=== PATIENT | female | born 1960 | race Caucasian/White ===

== ENCOUNTER → 2023-04-02 09:24 | Outpatient (BNVA) | payer OTHER, SELFPAY | PROVIDERS: PCP Internal Medicine; Referring Provider Internal Medicine; Visit Provider Physician Assistant ==

== ENCOUNTER 2023-05-06 08:52 | Outpatient (AMB) | payer OTHER, SELFPAY ==
[2023-05-06 08:59] VITALS: BP 165/58; PULSE 68; TEMP 36.2; O2SAT 95; BMI 41.0
--- NOTE | 2023-05-06 08:59 | A.OFFVIS_ITS ---
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 Allergies No Known Allergies Allergy (Verified 04/02/23 09:37) Medication List - Last Reconciled 05/06/23 by MICAELA Leach aspirin (Adult Aspirin Regimen) 81 mg PO DAILY atorvastatin 40 mg PO BEDTIME chlorhexidine gluconate 4% (Hibiclens) 1 appl topical BID cilostazol 100 mg PO BID clopidogrel 75 mg PO DAILY clotrimazole 1% 1 appl topical BID fluticasone propion-salmeterol 250-50 mcg/dose (Advair Diskus) 1 inh inhalation BID HPI HPI Comments History of Present Illness Details Pt is here to start the [facility] Weight Management surgical weight loss program. Her goal is to lose weight and achieve a healthy lifestyle as well as to improve, if not resolve, obesity related medical conditions, including HLD. She reports first being concerned about her weight 15 years ago, highest weight to date was 218. Initial weight on presentation to the clinic on 04/02/23 was 218 poundsCurrent weight is 216.8 with a BMI of 41. She has tried multiple methods of weight loss including fad diets without permanent results. She lives with her and granddaughter. She does not work. Hx of vasculopathy with painful BLE. Underwent angiogram by Dr Prater at [facility] and stents were attempted but unsuccessful. She underwent Aorto-iliac bypass bila terally in 2019. F/U with Dr Polo as Dr Prater left. Had US and stents were again attempted by Dr Polo, unsucessful. Re-imaged months later and found to have neovascularization. She continues to complain of a heaviness of bilateral legs with ambulation of 15-20 minutes. Never had any significant improvement since the surgery. She wakes at:?5 am, and goes to bed at?9 pm. Dinner is at 5 pm. Breakfast: skip AM snack: cookies, apple turnover, watermelon Lunch: skip or sandwich PM snack: skip Dinner: meatballs and pasta, chicken After dinner: klondik bar, ice cream Other snacks: candy Liquids: 32 oz water, no soda, no juice, ice tea sweetened 40 oz Alcohol/marijuana/tobacco intake: no etoh, 1-2 x per week edible cannabis, quit smoking 2018 (prev 2 ppd-40 yrs) Exercise: none, no exercise equp in house and no gym membership GERD score: 0 MOSES score: 0 ESS score: 3 QOL score: 89 PFSH Surgical History History of nrpon-sgeuz-blqxzwr bypass Hx of carpal tunnel repair Hx of colonoscopy Hx of foot surgery Hx of tonsillectomy Family History Mother COPD (chronic obstructive pulmonary disease) Hypertension Father Peripheral arterial disease Brother No problems noted. Brother Heart disease Sister No problems noted. Son No problems noted. Daughter No problems noted. Social History Alcohol intake: never Patient Tobacco Use Status: Former Tobacco user Review of Systems Const All systems reviewed & are unremarkable except as noted in HPI and below Physical Exam Const General: cooperative, healthy appearing and no acute distress Orientation/consciousness: patient oriented x3 HEENT Head: Yes normal to inspection Ears: hearing grossly normal bilaterally General nose exam: Normal external nose present Face and sinus: Yes normal facial exam Eyes General: appearance normal, both eyes and all related structures Resp Effort & Inspection: normal respiratory effort Auscultation: clear to auscultation bilaterally Cardio Rate: regular rate Rhythm: regular rhythm Heart sounds: S1 normal heart sound present and S2 normal heart sound present GI Inspection: Yes normal to inspection, No distended and Yes obesity Palpation (GI): Soft to palpation, nontender and no guarding Auscultation: normal bowel sounds Skin General skin exam: no rashes or lesions noted Neuro General: patient oriented x3 Extrem General: No edema Psych Appearance: grossly normal Mental Status: mental status grossly normal Speech and movement: Normal speech and movement present Affect: normal affect Attitude: cooperative Assessment & Plan Assessment & Plan (1) Morbid obesity: Code(s): E66.01 - Morbid (severe) obesity due to excess calories Plan: This is a?63 yo female who will start our SWL program to prepare for bariatric surgery.? Blood work, h pylori , CXR, ECG, Abd US and UGI have been ordered. She is being scheduled for RD and BH initial consultations. She will start SWL classes and watch the first three videos before her next appointment. ? Adequate sleep of 7-8 hours per night discussed, awakening at 5 am and going to bed at 9 pm ? Purchase body composition analyzer scale (Geremias kovacs or Alejandra recommended) and check weight weekly. The best time to do this is first thing in the morning after going to the bathroom. 1. Nutritional counseling: Be sure to careful read the number of scoops per shake Start with 2 Orgain shakes ([employer], [employer], [employer]), (1 scoop in 8 oz low fat unsweetened almond milk each) First shake at 6am-8am, Second shake at 10am-12pm 1 protein bar (Zone Perfect bars at [employer], [employer], or [employer]) at 2pm-4pm. Dinner at 5pm (8 forks of protein and 8 forks of salad/vegetables). Meal to include lean meat (beef, fish, pork, turkey, chicken), cooked vegetables or a salad with olive oil and/or fruits (berries, pears, apples, kiwi). Avoid salt, breads, potatoes, rice, pasta, desserts. 1 belizean yogurt with 1/2 cup fresh berries (strawberries, blueberries, raspberries, blackberries) at 7pm-8pm. Try to drink 64 oz of water daily and avoid soda and juices. ?2. Each shake would be drunk slowly, like coffee in a period of 2 hours. ?3. Cut each bar in 4 pieces and eat each piece in 30 min ?to make each bar last 2 hours. ?4. I emphasized the importance of measuring accurately the food portion and measure it carefully when serving the food on the plate ?5. The meal portions include 8 full-size forks of meat and 8 full-size forks of salad. You always eat the meat portion but you can replace up to half of the forks of salad/vegetables with rice, potatoes or pasta, or a fruit ?if you like. The less you do it the better weight loss will be. ?6. One full-size fork is what can be scooped on the fork without falling aside and not what can be bit with the fork. Use regular forks like those you find in a typical restaurant. ?7.? Please send me weight measurements as soon as possible and then once a week. Always include your diet and exercise plan. Alternatively come weekly at the office for weight checks and send me the measurements. ?8. Exercise counseling: Begin by watching a stretching for beginners video. Start slowly and begin to stretch your muscles. You should do this before and after each exercise session to prevent injury. Please join [employer] gym near your home. Ask the construction safety manager or one of the trainers how to use the machines if you are unfamiliar with them. Start elliptical with a resistance of 2. Increase resistance by 1 every 3 min to your most comfortable resistance with a max resistance of 6. Reduce the resistance by 1 every 3 minutes back down to 2 and repeat cycles for 300 calories. Alternatively, start treadmill with a speed of 2.6 and incline of 0, increasing incline by 1 every 3 minutes to the highest comfortable level (max 6 for now) then decrease in the same fashion. Ultimate goal is to repeat process to a goal of 300 calories. Goal of 2000 calories burned or more weekly. You will need to try to go for 10-15 minutes, until the discomfort in your legs starts. The next day, try to increase your time by 1 minute and so forth. You may also consider use of the stationary bike. The easiest would be to chose the fat-burn or interval training program on the machine and do this until you reach the 300 calorie goal. Alternatively, you can manually adjust the resistance in a similar fashion as mentioned above, (resistance of 2-8 with a goal speed of 12 mph). Tracking calories is essential. 9. Alternatively start walking outside daily, tracking calories with a goal of 300 calories per day, daily. You can download the sreg [employer] which can track your time, distance and calories while walking outside. You press start in the serg when you start and then stop when you are finished. 10.? It is important to communicate with me by text weekly. 11. Please get labs, EKG and chest X-Ray within 1 week. 12. Discussed and answered all questions regarding?obtained consent to participate in the [facility]?Registry. 13. Please follow the diet plan exactly, without any change. If you do not like something about the plan or you feel hungry, you need to communicate with me so I can help you revise the plan. You should not change the plan yourself. Text me at [phone] 14. Goal is to lose at least 12 pounds in the first month 15. Goal is to lose 10% of your weight before surgery, which is about 21 lbs. Ultimate weight goal: 197 lbs before surgery Patient is morbidly obese and is not considered stable at this time.?I spent a total of 70 minutes reviewing/updating records, examining the patient and counseling the patient on weight management as detailed above. (2) Claudication of both lower extremities: Code(s): I73.9 - Peripheral vascular disease, unspecified Plan: Given options for a second opinion for vascular status Orders: Orders Vitamin B12 and Folate Today E66.01 - Morbid (severe) obesity due to excess sandi ories, E78.00 - Pure hypercholesterolemia, unspecified, I73.9 - Peripheral vascular disease, unspecified Comprehensive Met. Panel Today E66.01 - Morbid (severe) obesity due to excess calories, E78.00 - Pure hypercholesterolemia, unspecified, I73.9 - Peripheral vascular disease, unspecified C Reactive Protein Today E66.01 - Morbid (severe) obesity due to excess calories, E78.00 - Pure hypercholesterolemia, unspecified, I73.9 - Peripheral vascular disease, unspecified Ferritin Today E66.01 - Morbid (severe) obesity due to excess calories, E78.00 - Pure hypercholesterolemia, unspecified, I73.9 - Peripheral vascular disease, unspecified Hemoglobin A1c Today E66.01 - Morbid (severe) obesity due to excess calories, E78.00 - Pure hypercholesterolemia, unspecified, I73.9 - Peripheral vascular disease, unspecified Insulin Today E66.01 - Morbid (severe) obesity due to excess calories, E78.00 - Pure hypercholesterolemia, unspecified, I73.9 - Peripheral vascular disease, unspecified IRON PROFILE Today E66.01 - Morbid (severe) obesity due to excess calories, E78.00 - Pure hypercholesterolemia, unspecified, I73.9 - Peripheral vascular disease, unspecified Lipid Panel Today E66.01 - Morbid (severe) obesity due to excess calories, E78.00 - Pure hypercholesterolemia, unspecified, I73.9 - Peripheral vascular disease, unspecified PTHI Today E66.01 - Morbid (severe) obesity due to excess calories, E78.00 - Pure hypercholesterolemia, unspecified, I73.9 - Peripheral vascular disease, unspecified TSH reflex Free T4 Today E66.01 - Morbid (severe) obesity due to excess calories, E78.00 - Pure hypercholesterolemia, unspecified, I73.9 - Peripheral vascular disease, unspecified Vitamin A Today E66.01 - Morbid (severe) obesity due to excess calories, E78.00 - Pure hypercholesterolemia, unspecified, I73.9 - Peripheral vascular disease, unspecified Vitamin B1 Today E66.01 - Morbid (severe) obesity due to excess calories, E78.00 - Pure hypercholesterolemia, unspecified, I73.9 - Peripheral vascular disease, unspecified Vitamin D 25-OH Total Today E66.01 - Morbid (severe) obesity due to excess calories, E78.00 - Pure hypercholesterolemia, unspecified, I73.9 - Peripheral vascular disease, unspecified Zinc Today E66.01 - Morbid (severe) obesity due to excess calories, E78.00 - Pure hypercholesterolemia, unspecified, I73.9 - Peripheral vascular disease, unspecified ECG 12 lead EKG Today E66.01 - Morbid (severe) obesity due to excess calories, E78.00 - Pure hypercholesterolemia, unspecified, I73.9 - Peripheral vascular disease, unspecified FL upper GI w air Today E66.01 - Morbid (severe) obesity due to excess calories, E78.00 - Pure hypercholesterolemia, unspecified, I73.9 - Peripheral vascular disease, unspecified Complete Blood Count Auto Diff Today E66.01 - Morbid (severe) obesity due to excess calories, E78.00 - Pure hypercholesterolemia, unspecified, I73.9 - Peripheral vascular disease, unspecified H Pylori Breath Test Today E66.01 - Morbid (severe) obesity due to excess calories, E78.00 - Pure hypercholesterolemia, unspecified, I73.9 - Peripheral vascular disease, unspecified US abdomen comp w elastography Today E66.01 - Morbid (severe) obesity due to excess calories, E78.00 - Pure hypercholesterolemia, unspecified, I73.9 - Peripheral vascular disease, unspecified XR chest 2V Today E66.01 - Morbid (severe) obesity due to excess calories, E78.00 - Pure hypercholesterolemia, unspecified, I73.9 - Peripheral vascular disease, unspecified Referrals Behavioral Health Referral E66.01 - Morbid (severe) obesity due to excess calories, E78.00 - Pure hypercholesterolemia, unspecified, I73.9 - Peripheral vascular disease, unspecified Nutrition/Dietitian Referral E66.01 - Morbid (severe) obesity due to excess calories, E78.00 - Pure hypercholesterolemia, unspecified, I73.9 - Peripheral vascular disease, unspecified Coding Level of Care Code New Pt Level 5 (68554) Diagnoses Morbid obesity E66.01 Claudication of both lower extremities I73.9 Time Spent (min) 70
== END 2023-05-06 10:00 | disposition home or self-care (01) ==
PROVIDERS: PCP Internal Medicine; Visit Provider Physician Assistant Surgical
DX: E66.01 Morbid (severe) obesity due to excess calories (principal); Z68.41 Body mass index [BMI] 40.0-44.9, adult; I73.9 Peripheral vascular disease, unspecified
CPT/HCPCS: 99205

== ENCOUNTER 2023-05-06 08:52 | Outpatient (REF) | payer OTHER, SELFPAY ==
--- NOTE | ~2023-05-06 | XR_ITS ---
EXAMINATION: XR CHEST CLINICAL INFORMATION: Morbid obesity due to excess calories. COMPARISON: None available. TECHNIQUE: 2 views of the chest were obtained. FINDINGS: No significant abnormality is noted involving the heart, lungs, mediastinum, bony thorax or soft tissues. XR/XR chest 2V IMPRESSION: Unremarkable examination.
[2023-05-06 10:35] LABS: MANUAL DIFF FLAG NO
--- NOTE | 2023-05-06 10:36 | ECG_ITS ---
Test Reason : morbid obesity Blood Pressure : / mmHG Vent. Rate : 056 BPM Atrial Rate : 056 BPM P-R Int : 144 ms QRS Dur : 088 ms QT Int : 432 ms P-R-T Axes : 067 029 052 degrees QTc Int : 416 ms Sinus bradycardia with Premature supraventricular complexes Otherwise normal ECG No previous ECGs available Referred By: Petr Mera Electronically Signed By:ERNIE SANDHU MD
[2023-05-06 11:42] LABS: Basophils Percent Auto 0.4 % (0-2); Eosinophils Percent Auto 0.5 % (0-4); Hematocrit 41.8 % (37.0-47.0); Hemoglobin 13.7 g/dl (12.0-16.0); Imm Gran Abs Auto 0.03 X10*3/uL (0.00-0.03); Imm Gran Pct Auto 0.4 % (0.0-0.4); Lymphocytes Absolute Auto 2.7 X10*3/uL (1.2-4.9); Lymphocytes Percent Auto 32.8 % (20-40); Mean Corpuscular HGB Conc 32.8 g/dl (31.0-35.0); Mean Corpuscular Hemoglobin 29.6 pg (27.0-33.0); Mean Corpuscular Volume 90.3 fL (80.0-98.0); Mean Platelet Volume 10.2 fL (9.4-12.3); Monocytes Absolute Auto 0.6 X10*3/uL (0.1-1.2); Monocytes Percent Auto 7.9 % (2-11); Neutrophils Absolute Auto 4.7 x10*3/uL (2.0-8.3); Platelet Count 328 X10*3/uL (160-400); Red Blood Count 4.63 X10*6/uL (4.20-5.50); Red Cell Distribution Width 12.9 % (11.0-16.0); White Blood Count 8.1 X10*3/uL (4.8-10.8)
[2023-05-06 11:50] LABS: Estimated Average Glucose 123 mg/dL; Hemoglobin A1c % 5.9 %
[2023-05-06 12:23] LABS: Alanine Aminotransferase 29 U/L (0-31); Albumin Level 4.2 g/dL (3.5-5.0); Alkaline Phosphatase 103 U/L (39-117); Anion Gap 13 (12-20); Aspartate Amino Transferase 22 U/L (5-31); Bilirubin Total 1.3 mg/dL (0.0-1.0); Blood Urea Nitrogen 9 mg/dL (9-16); C Reactive Protein 0.34 mg/dL (< or = 0.50); Calcium 9.7 mg/dL (8.4-10.2); Carbon Dioxide 26 mmol/L (22-29); Chloride 107 mmol/L (96-108); Cholesterol 136 mg/dL; Estimated Glomerular Filt Rate > 60; Glucose Random 83 mg/dL (60-115); HDL Cholesterol 42 mg/dL; Iron 97 mcg/dL (30-160); LDL Cholesterol Calculated 78 mg/dl; Percent Iron Saturation 30 % (15-50); Sodium 142 mmol/L (135-145); Total Iron Binding Capacity 326 mcg/dL (228-428); Total Protein 6.9 g/dL (6.5-8.0); Triglycerides 83 mg/dL; Unsaturated Iron Binding 229 ug/dL
[2023-05-06 12:27] LABS: Ferritin 87 ng/mL (10-250); Insulin 17 uU/mL (2-29); TSH reflex Free T4 2.22 uIU/mL (0.32-4.0); Vitamin D 25-OH Total 13.3 ng/mL (>30)
[2023-05-06 12:43] LABS: Folate 7.3 ng/mL (> or = 4.0); Vitamin B12 307 pg/mL (200-900)
[2023-05-07 17:43] LABS: Calcium (PTHI) 9.4 mg/dL (8.6-10.4); PTHI 183 pg/mL (16-77)
[2023-05-10 14:25] LABS: H Pylori Breath Test Negative (Negative)
[2023-05-11 07:28] LABS: Vitamin B1 9 nmol/L (8-30)
[2023-05-11 16:53] LABS: Zinc 66 mcg/dL (60-130)
[2023-05-13 21:04] LABS: Vitamin A 30 mcg/dL (38-98)
== END 2023-05-06 08:53 | disposition home or self-care (01) ==
LOC: HO.LAB 08:52
PROVIDERS: PCP Internal Medicine; Visit Provider Physician Assistant Surgical
DX: E66.01 Morbid (severe) obesity due to excess calories (principal); I73.9 Peripheral vascular disease, unspecified; E78.00 Pure hypercholesterolemia, unspecified
CPT/HCPCS: 36415; 71046; 80053; 80061; 82306; 82607; 82728; 82746; 83013; 83036; 83525; 83540; 83970; 84425; 84443; 84590; 84630; 85025; 86140; 93005; 99202; 99211

== ENCOUNTER → 2023-05-06 10:36 | Outpatient (BNV) | payer OTHER, SELFPAY | PROVIDERS: PCP Internal Medicine; Visit Provider Internal Medicine Cardiovascular Disease | DX: I47.1 Supraventricular tachycardia (principal) | CPT/HCPCS: 93010 ==

== ENCOUNTER 2023-05-20 12:00 | Outpatient (AMB) | payer OTHER, SELFPAY ==
--- NOTE | 2023-05-20 12:16 | MHC.WMTHER ---
Intake Intake Visit Reasons: VIDEO Intake Allergies No Known Allergies Allergy (Verified 05/06/23 11:25) [facility] Surgical History History of guuyx-rkxhf-vhcnvig bypass Hx of carpal tunnel repair Hx of colonoscopy Hx of foot surgery Hx of tonsillectomy Family History Mother COPD (chronic obstructive pulmonary disease) Hypertension Father Peripheral arterial disease Brother No problems noted. Brother Heart disease Sister No problems noted. Son No problems noted. Daughter No problems noted. Social History Alcohol intake: never Patient Tobacco Use Status: Former Tobacco user Behavioral Health Assessment Weight Management Therapy Therapy Notes Details Pt is looking to have weight loss surgery to help improve her health and quality of life. Pt denied any mental health history or treatment. She has no history of problems with drugs or alcohol. Presenting Concerns Referral Source provider Reason for referral weight loss surgery evaluation Precipitating Event obesity Living Situation Current Living Situation Own At risk of losing current housing? No Satisfied with current living situation? Yes Comments Pt lives with her and granddaughter who is 19. Food/Weight/Diet Expectations of change weight loss and maintenance History/Relationship with food Skipped breakfast, picked at lunch time, made poor food choices, chips at night, she reported that she loves any kind of desserts. Also drinking iced tea daily, soda daily up until one year ago History/Relationship with weight She stated that the last ten years she has struggled with her weight. Prior to that she weighed around 130lbs. History/Relationship with dieting none Binge Eating Do you frequently eat large amounts of food in short periods of time, not feeling physically hungry? No Do you feel out of control when you eat a large amount of food in a short period of time? No Do you eat large amounts of food rapidly and typically alone? Yes Night Eating Do you wake up at least once during the night to eat? No If you wake up in the night, do you find that it is necessary to eat something in order to fall back asleep? No Do you have little or no appetite in the morning and feel very hungry in the evening, often overeating between dinner and when you go to bed? Yes Social History Family history and relationship Pt has been with her for over 30 years and has two adult children and 4 grandchildren, one who she raised. 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 none known Education Preferred learning style Auditory, Verbal, Written, Learn by doing and Visual Currently enrolled in educational program? No Interested in further educational program? No Employment Employment Status Retired Wants help to find employment? No Meaningful activities Patient spent the last 18 years raising her granddaughter. Pt reported that she is limited due to her lack of mobility. Financial Situation Describe current financial situation Occasional struggle Financial assistance? None Service Service? No Mental Health and Addiction Treatment Current/Past substance abuse? No Current/Past addictive behavior concerns? No Pain Screening Current pain? Yes Pain in the last few months? Yes Medications Is the patient compliant with medications? Yes Does the patient have [facility] Guardian in place? Not applicable Does the patient use complimentary health approaches? No Trauma/Abuse History History of trauma? No Questionnaires PHQ-9 Over the last 2 weeks, how often have you been bothered by any of the following problems? 1. Little interest or pleasure in doing things: not at all 2. Feeling down, depressed, or hopeless: not at all 3. Trouble falling or staying asleep, or sleeping too much: not at all 4. Feeling tired or having little energy: several days 5. Poor appetite or overeating: not at all 6. Feeling bad about yourself - or that you are a failure or have let yourself or your family down: several days 7. Trouble concentrating on things, such as reading the newspaper or watching television: not at all 8. Moving or speaking so slowly that other people could have noticed. Or the opposite - being so fidgety or restless that you have been moving around a lot more than usual: not at all 9. Thoughts that you would be better off or of hurting yourself in some way: not at all Total score: 2 Depression Screening Interpretation: Negative Source: Developed by Drs. Nikita Osorio, Shauna Snider, Vinicius Morocho and colleagues, with an educational cuauhtemoc from [employer]. Binge Eating Scale Group 1 A. I don't feel self-conscious about my wt. or body size when I'm with others. B. I feel concerned about how I look to others, but it normally does not make me fell disappointed with myself C. I do get self-conscious about my appearance and wt. which makes me feel disappointed in myself. D. I feel very self-conscious about my wt. and frequently I feel intense shame and disgust for myself. I try to avoid social contacts because of my self-consciousness. Response Group 1: C Group 2 A. I don't have any difficulty eating slowly in the proper manner. B. Although I seem to gobble down foods, I don't end up feeling stuffed because of eating to much. C. At times, I tend to eat quickly and then, I feel uncomfortably full afterwards. D. I have the habit of bolting down my food, without really chewing it. When this happens I usually feel uncomfortably stuffed because I've eaten to much. Response Group 2: A Group 3 A. I feel capable to control my eating urges when I want to. B. I feel like I have failed to control my eating more than the average person. C. I feel utterly helpless when it comes to feeling in control of my eating urges. D. Because I feel so helpless about controlling my eating I have become very desperate about trying to get control. Response Group 3: A Group 4 A. I don't have the habit of eating when I'm bored. B. I sometimes eat when I'm bored, but often I'm able to get busy and get my mind off food. C. I have a regular habit of eating when I'm bored, but occasionally, I can use some other activity to get my mind off eating. D. I have a strong habit of eating when I'm bored. Nothing seems to help me breath the habit. Response Group 4: B Group 5 A. I'm usually physically hungry when I eat something. B. Occasionally, I eat something on impulse even though I really am not hungry. C. I have the regular habit of eating foods, that I might not really enjoy, to satisfy a hungry feeling even though physically, I don't need the food. D. Although I'm not physically hungry, I get a hungry feeling in my mouth that only seems to be satisfied when I eat a food, like sandwich, that fills my mouth. Sometimes, when I eat the food to satisfy my mouth hunger, I then spit the food out so I won't gain weight. Response Group 5: A Group 6 A. I don't feel any guilt or self-hate after I overeat. B. After I overeat, occasionally I feel guilt or self-hate. C. Almost all the time I experience strong guilt or self-hate after I overeat. Response Group 6: B Group 7 A. I don't lose total control of my eating when dieting even after periods when I overeat. B. Sometimes when I eat a forbidden food on a diet, I feel like I blew it and eat even more. C. Frequently, I have the habit of saying to myself, I've blown it now, why not go all the way, when I overeat on a diet. When that happens I eat more. D. I have a regular habit of starting a strict diets for myself but I break the diets by going on an eating binge. My life seems to be either a feast or famine. Response Group 7: A Group 8 A. I rarely eat so much food that I feel uncomfortably stuffed afterwards. B. Usually about once a month, I each such a quantity of food, I end up feeling very stuffed. C. I have regular periods during the month when I eat large amounts of food, either at mealtime or at snacks. D. I eat so much food that I regularly feel quite uncomfortable after eating and sometimes a bit nauseous. Response Group 8: A Group 9 A. My level of calorie intake does not go up very high or go down very low on a regular basis. B. Sometimes after I overeat, I will try to reduce my caloric intake to almost nothing to compensate for the excess calories I've eaten. C. I have a regular habit of overeating during the night. It seems that my routine is not to be hungry in the morning but overeat in the evening. D. In my adult years, I have had week-long periods where I practically starve myself. This follows periods when I overeat. It seems I live a life of either feast or famine. Response Group 9: B Group 10 A. I usually am able to stop eating when I want to. I know when enough is enough. B. Every so often, I experience a compulsion to eat which I can't seem to control. C. Frequently, I experience strong urges to eat which I seem unable to control, but at other times I can control my eating urges. D. I feel incapable of controlling urges to eat. I have a fear of not being able to stop eating voluntarily. Response Group 10: A Group 11 A. I don't have any problem stopping eating when I feel full. B. I usually can stop eating when I feel full but occasionally overeat leaving me feeling uncomfortably stuffed. C. I have a problem stopping eating once I start and usually I feel uncomfortably stuffed after I eat a meal. D. Because I have a problem not being able to stop eating when I want, I sometimes have to induce vomiting to relieve my stuffed feeling. Response Group 11: A Group 12 A. I seem to eat just as much when I'm with others, Family social gatherings as when I'm by myself. B. Sometimes, when I'm with other persons, I don't eat as much as I want to eat because I'm self-conscious about my eating. C. Frequently, I eat only a small amount of food when others are present, because I'm very embarrassed about my eating. D. I feel so ashamed about overeating that I pick times to overeat when I know no one will see me. I feel like a closet eater. Response Group 12: B Group 13 A. I eat three meals a day with only an occasional between meal snack. B. I eat 3 meals a day, but I also normally snack between meals. C. When I am snacking heavily, I get in the habit of skipping regular meals. D. There are regular periods when I seem to be continually eating, with no planned meals. Response Group 13: A Group 14 A. I don't think much about trying to control unwanted eating urges. B. At least some of the time, I feel my thoughts are pre-occupied with trying to control my eating urges. C. I feel that frequently I spend much time thinking about how much I ate or about trying not to eat anymore. D. It seems to me that most of my waking hours are pre-occupied by thoughts about eating or not eating. I feel like I'm constantly struggling not to eat. Response Group 14: A Group 15 A. I don't think about food a great deal. B. I have strong craving for food but they last only for brief periods of time. C. I have days when I can't seem to think about anything else but food. D. Most of my days seem to be pre-occupied with thoughts about food. I feel like I live to eat. Response Group 15: A Group 16 A. I usually know whether or not I'm physically hungry. I take the right portion of food to satisfy me. B. Occasionally, I feel uncertain about knowing whether or not I'm physically hungry. A these times it's hard to know how much food I should take to satisfy me. C. Even though I might know how many calories I should eat, I don't have any idea what is a normal amount of food for me. Response Group 16: A Binge Eating Score: 6 Score less than 17 Minimal Risk Score between 18-26 Moderate Risk Score between 27-46 High Risk Assessment & Plan Assessment & Plan (1) Adjustment disorder, unspecified: Code(s): F43.20 - Adjustment disorder, unspecified (2) Morbid obesity: Code(s): E66.01 - Morbid (severe) obesity due to excess calories Plan Pt is doing well in the program, she is dedicated, and has no mental health barriers. She is cleared for surgery when ready. Telehealth Telehealth Location of provider rendering services: other Location of patient: address on file Patient Identification confirmed using: Name, : Yes Telehealth method: voice only Patient verbally consented to treatment: Yes Patient verbally consented to billing insurance company: Yes Patient informed of any privacy concerns related to visit: Yes Minutes spent on Phone/Video with Pt.: 45 Coding Level of Care Code Tele Psy Diag Eval (44586) Diagnoses Adjustment disorder, unspecified F43.20 Morbid obesity E66.01 Time Spent (min) 45
== END 2023-05-20 13:24 | disposition home or self-care (01) ==
LOC: HO.HBST 12:46
PROVIDERS: PCP Internal Medicine; Visit Provider Counselor Mental Health
DX: F43.20 Adjustment disorder, unspecified (principal); E66.01 Morbid (severe) obesity due to excess calories
CPT/HCPCS: 90791

== ENCOUNTER → 2023-05-20 12:00 | Outpatient (BNVA) | payer OTHER, SELFPAY | PROVIDERS: PCP Internal Medicine; Visit Provider Counselor Mental Health | DX: F43.20 Adjustment disorder, unspecified (principal); E66.01 Morbid (severe) obesity due to excess calories ==

== ENCOUNTER 2023-05-31 08:53 | Outpatient (AMB) | payer OTHER, SELFPAY ==
--- NOTE | 2023-05-31 08:57 | MHC.OFFVISWM ---
Intake VS Expanded 05/31/23 09:02 Height 5 ft 1 in Weight 207 lb BMI 39.1 BP 141/74 H Blood Pressure Location Rt brachial Blood Pressure Position Sitting Pulse 77 Pulse Source Pulse Oximeter Temp 97.2 F Temperature Source Temporal Artery Scan Pulse Oximetry 95 Oxygen Delivery Method Room Air Body Fat 90.6 Body Fat Percentage 43.8 Free Fat Mass 116.2 Muscle Mass 110.2 Visceral Mass 14.0 Water Mass 82.0 BMR 1,611 Intake Visit Reasons: (OV) F/U SWL Display Associate Required: No Allergies No Known Allergies Allergy (Verified 05/31/23 09:05) Medication List - Last Reconciled 05/31/23 by MICAELA Leach aspirin (Adult Aspirin Regimen) 81 mg PO DAILY atorvastatin 40 mg PO BEDTIME chlorhexidine gluconate 4% (Hibiclens) 1 appl topical BID cholecalciferol (vitamin D3) 125 mcg PO DAILY 90 days cilostazol 100 mg PO BID clopidogrel 75 mg PO DAILY clotrimazole 1% 1 appl topical BID cyanocobalamin (vitamin B-12) 500 mcg PO DAILY 90 days fluticasone propion-salmeterol 250-50 mcg/dose (Advair Diskus) 1 inh inhalation BID gabapentin 300 mg PO BEDTIME vitamin A palmitate 3,000 mcg PO DAILY 90 days HPI HPI Comments History of Present Illness Details The patient is a pleasant 63 year old female who returns to the clinic for pre-operative surgical weight loss management. They were last seen in the office on 05/06/23, recorded weight at that time was 216.8 pounds, with a BMI of 41. Today's weight is 207 pounds and BMI is 39.1. There has been a weight loss of 11 pounds since initiating the surgical weight loss program on 04/02/23 with a total body weight loss of 5.04 %. Pre op work up completed as follows: SWL classes:? 01/30 BH appts: cleared 05/20/23 ? ? RD appts: needs f/u Labs: 05/06/23- low A, D, B12:307 H. pylori: 05/06/23-neg CXR: 05/06/23-nad EK05/06/23-sinus yuliya with premature SVC- consult to cards placed 05/31/23 ABD U/S: 07/27/23 UGI: needs appt The patient reports she feels great, She did see Dr Foley for her leg pain and is very happy to follow up in June. She is following her meal plan and no complaints. Current meal plan includes: 2 Or[employer] shakes ([employer], [employer], [employer]), (1 scoop in 8 oz low fat unsweetened almond milk each) First shake at 6am-8am, Second shake at? 10am-12pm 1 protein bar (Zone Perfect bars at [employer], [facility], or [employer]) at 2pm-4pm. Dinner at 5pm (8 forks of protein and 8 forks of salad/vegetables). 1 israeli yogurt with 1/2 cup fresh berries (strawberries, blueberries, raspberries, blackberries) at 7pm-8pm. Drinking 64 oz of water Current exercise plan includes: walking her driveway, improved but limited due to claudication PFSH Surgical History History of mvomd-zggrx-fbhdnay bypass Hx of carpal tunnel repair Hx of colonoscopy Hx of foot surgery Hx of tonsillectomy Family History Mother COPD (chronic obstructive pulmonary disease) Hypertension Father Peripheral arterial disease Brother No problems noted. Brother Heart disease Sister No problems noted. Son No problems noted. Daughter No problems noted. Social History Alcohol intake: never Patient Tobacco Use Status: Former Tobacco user Review of Systems Const All systems reviewed & are unremarkable except as noted in HPI and below Physical Exam Const General: healthy appearing and no acute distress Resp Effort & Inspection: normal respiratory effort Auscultation: clear to auscultation bilaterally Cardio Rate: regular rate Rhythm: regular rhythm GI Auscultation: normal bowel sounds Extrem General: Yes normal to inspection Assessment & Plan Assessment & Plan (1) Obesity (BMI 30-39.9): Code(s): E66.9 - Obesity, unspecified Plan: continue plan encouraged to join [employer] near her home rtc 4 weeks text with weight weekly and if questions (2) Abnormal EKG: Code(s): R94.31 - Abnormal electrocardiogram [ECG] [EKG] Plan: referral to cardiology Will need cardiac risk assessment as well Orders: Referrals Cardiology Referral R94.31 - Abnormal electrocardiogram [ECG] [EKG] Coding Level of Care Code Est Pt Level 4 (38469) Diagnoses Obesity (BMI 30-39.9) E66.9 Abnormal EKG R94.31 Time Spent (min) 40
[2023-05-31 09:02] VITALS: BP 141/74; PULSE 77; TEMP 36.2; O2SAT 95; BMI 39.1
== END 2023-05-31 09:34 | disposition home or self-care (01) ==
PROVIDERS: PCP Internal Medicine; Visit Provider Physician Assistant Surgical
DX: E66.9 Obesity, unspecified (principal); Z68.39 Body mass index [BMI] 39.0-39.9, adult; R94.31 Abnormal electrocardiogram [ECG] [EKG]
CPT/HCPCS: 99214

== ENCOUNTER → 2023-05-31 08:53 | Outpatient (BNVA) | payer OTHER, SELFPAY | PROVIDERS: PCP Internal Medicine; Visit Provider Physician Assistant Surgical | DX: E66.9 Obesity, unspecified (principal); R94.31 Abnormal electrocardiogram [ECG] [EKG]; Z68.39 Body mass index [BMI] 39.0-39.9, adult | CPT/HCPCS: 99212 ==

== ENCOUNTER 2023-06-22 09:20 | Outpatient (AMB) | payer OTHER, SELFPAY ==
--- NOTE | 2023-06-22 09:07 | A.OFFVIS_ITS ---
Intake Intake Visit Reasons: VIDEO Initial Nutrition SWL Allergies No Known Allergies Allergy (Verified 05/31/23 09:05) HPI Nutrition Presentation Reason for consult elevated BMI Diet Assmnt Details Patient shares overall she is doing great. She is very motivated and positive. We had a long discussion about identifying all underlying eating habits/factors that contributed to her obesity. Currently she shares she Is struggling with emotional (reward or comfort). Has had this behavior for most o f her life. Exercise: Minimal, however she reports she is able to walk further distances SWL online classes: 01/30 Dietary counseling reduction Who buys your food self Who prepares/cooks your food self Diagnosis Nutrition problem #1 overweight/obesity As related to (etiology) #1 excess energy intake and physical inactivity As evidenced by (sign/symptom) #1 high BMI Monitoring/Goals Nutrition problem monitoring total energy intake, level of knowledge/skill, total PRO intake, total CHO intake, weight and oral fluids Outcome progress progressing Learning/Education Readiness to learn excellent Stages of change action Educational materials provided Yes Most Recent Diabetes Results: Cholesterol 136 mg/dL 05/06/23 HDL Cholesterol 42 mg/dL 05/06/23 Triglycerides 83 mg/dL 05/06/23 Creatinine 0.75 mg/dL (0.5-1.4) 05/06/23 Blood Urea Nitrogen 9 mg/dL (9-16) 05/06/23 Sodium 142 mmol/L (135-145) 05/06/23 Potassium 4.0 mmol/L (3.3-5.1) 05/06/23 Chloride 107 mmol/L (96-108) 05/06/23 Carbon Dioxide 26 mmol/L (22-29) 05/06/23 Calcium 9.7 mg/dL (8.4-10.2) 05/06/23 AST 22 U/L (5-31) 05/06/23 ALT 29 U/L (0-31) 05/06/23 Total Protein 6.9 g/dL (6.5-8.0) 05/06/23 Albumin 4.2 g/dL (3.5-5.0) 05/06/23 [facility] Surgical History History of ekcqr-pvxfp-xibvzjg bypass Hx of carpal tunnel repair Hx of colonoscopy Hx of foot surgery Hx of tonsillectomy Family History Mother COPD (chronic obstructive pulmonary disease) Hypertension Father Peripheral arterial disease Brother No problems noted. Brother Heart disease Sister No problems noted. Son No problems noted. Daughter No problems noted. Social History Alcohol intake: never Patient Tobacco Use Status: Former Tobacco user Assessment & Plan Assessment & Plan (1) Obesity (BMI 30-39.9): Code(s): E66.9 - Obesity, unspecified Patient Instructions: Provided pt with non-food reward ideas. We also talked about non-scale related victories . F/u in 3-4 weeks and complete online classes beforehand to review Telehealth Telehealth Location of provider rendering services: practice address Location of patient: address on file Patient Identification confirmed using: Name, : Yes Telehealth method: video Patient verbally consented to treatment: Yes Patient verbally consented to billing insurance company: Yes Patient informed of any privacy concerns related to visit: Yes Minutes spent on Phone/Video with Pt.: 40 Coding Level of Care Code Nutr Indiv Intake (32597) Diagnoses Obesity (BMI 30-39.9) E66.9 Time Spent (min) 40
== END 2023-06-22 09:43 | disposition home or self-care (01) ==
LOC: HO.HBS 09:20
PROVIDERS: PCP Internal Medicine; Visit Provider Dietitian, Registered
DX: E66.9 Obesity, unspecified (principal)

== ENCOUNTER → 2023-06-22 09:20 | Outpatient (BNVA) | payer OTHER, SELFPAY | PROVIDERS: PCP Internal Medicine; Visit Provider Dietitian, Registered | DX: E66.9 Obesity, unspecified (principal); Z71.3 Dietary counseling and surveillance | CPT/HCPCS: 97802 ==

== ENCOUNTER 2023-06-30 10:48 | Outpatient (AMB) | payer OTHER, SELFPAY ==
--- NOTE | 2023-06-30 11:00 | MHC.OFFVISWM ---
Intake VS Expanded 06/30/23 11:09 Height 5 ft 1 in Weight 202 lb 6.4 oz BMI 38.2 BP 131/64 Blood Pressure Location Lt brachial Blood Pressure Position Sitting Pulse 67 Pulse Source Pulse Oximeter Temp 97.4 F Temperature Source Temporal Artery Scan Pulse Oximetry 94 Oxygen Delivery Method Room Air Body Fat 86.8 Body Fat Percentage 42.9 Free Fat Mass 115.6 Muscle Mass 109.6 Visceral Mass 14.0 Water Mass 81.6 BMR 1,596 Intake Visit Reasons: (OV) F/U SWL Intake Note: Patient is seen in office for follow up visit, following surgical weight loss. Clinical Staff Educator Required: No Accompanied by: Self / Same As Patient Allergies No Known Allergies Allergy (Verified 06/30/23 11:12) HPI HPI Comments History of Present Illness Details The patient is a pleasant 63 year old female who returns to the clinic for pre-operative surgical weight loss management. They were last seen in the office on 05/31/23, recorded weight at that time was 207 pounds, with a BMI of 39.1. Today's weight is 202.4 pounds and BMI is 38.3. There has been a weight loss of 15.6 pounds since initiating the surgical weight loss program on 04/02/23 with a total body weight loss of 7.1 %. Seen by podiatry and had injections in her feet 2-3 weeks ago with improvement in her foot pain. She has follow up with Dr Foley ([facility]) for claudication. Pre op work up completed as follows: SWL classes:? 01/30 BH appts: cleared 05/20/23 ? ? RD appts: f/u 07/21/23 Labs: 05/06/23- low A, D, B12:307 H. pylori: 05/06/23-neg CXR: 05/06/23-nad EK05/06/23-sinus yuliya with premature SVC- consult to cards placed 05/31/23 ABD U/S: 07/27/23 UGI: needs appt Current meal plan includes: 2 Orgain shakes ([employer], [employer], [employer]), (1 scoop in 8 oz low fat unsweetened almond milk each) First shake at 6am-8am, Second shake at? 10am-12pm 1 protein bar (Zone Perfect bars at [employer], [facility], or [employer]) at 2pm-4pm. Dinner at 5pm (8 forks of protein and 8 forks of salad/vegetables). 1 northern irish yogurt with 1/2 cup fresh berries (strawberries, blueberries, raspberries, blackberries) at 7pm-8pm. Drinking 64? oz of water Current exercise plan includes: walking 3 x per week, considering joining [employer] [facility] Surgical History History of cscrh-bydqw-aiuwzle bypass Hx of carpal tunnel repair Hx of colonoscopy Hx of foot surgery Hx of tonsillectomy Family History Mother COPD (chronic obstructive pulmonary disease) Hypertension Father Peripheral arterial disease Brother No problems noted. Brother Heart disease Sister No problems noted. Son No problems noted. Daughter No problems noted. Social History Alcohol intake: never Patient Tobacco Use Status: Former Tobacco user Review of Systems Const All systems reviewed & are unremarkable except as noted in HPI and below Physical Exam Vital Signs: Last Vital Signs Temp 97.4 F 06/30/23 11:09 Pulse 67 06/30/23 11:09 BP 131/64 06/30/23 11:09 Pulse Ox 94 06/30/23 11:09 Oxygen Delivery Method Room Air 06/30/23 11:09 BMI result Body Mass Index 38.2 Const General: healthy appearing and no acute distress Resp Effort & Inspection: normal respiratory effort Auscultation: clear to auscultation bilaterally Cardio Rate: regular rate Rhythm: regular rhythm GI Auscultation: normal bowel sounds Extrem General: Yes normal to inspection Assessment & Plan Assessment & Plan (1) Obesity (BMI 30-39.9): Code(s): E66.9 - Obesity, unspecified Plan: change meal plan to : 2 [employer] shakes ([employer], [employer], [employer]), (1 scoop in 8 oz low fat unsweetened almond milk each) First shake at 6am-8am, Second shake at? 10am-12pm 1 protein bar ([employer] Perfect bars at [employer], [facility], or [employer]) at 2pm-4pm. Dinner at 5pm (8 forks of protein and 8 forks of salad/vegetables). 1/2 cup fresh berries (strawberries, blueberries, raspberries, blackberries) at 7pm-8pm. Encouraged to join [employer], track calories rtc 1 month reminded of appointments Coding Level of Care Code Est Pt Level 3 (57268) Diagnoses Obesity (BMI 30-39.9) E66.9
[2023-06-30 11:09] VITALS: BP 131/64; PULSE 67; TEMP 36.3; O2SAT 94; BMI 38.2
== END 2023-06-30 11:30 | disposition home or self-care (01) ==
PROVIDERS: PCP Internal Medicine; Visit Provider Physician Assistant Surgical
DX: E66.9 Obesity, unspecified (principal); Z68.38 Body mass index [BMI] 38.0-38.9, adult
CPT/HCPCS: 99213

== ENCOUNTER → 2023-06-30 10:48 | Outpatient (BNVA) | payer OTHER, SELFPAY | PROVIDERS: PCP Internal Medicine; Visit Provider Physician Assistant Surgical | DX: E66.9 Obesity, unspecified (principal); Z68.38 Body mass index [BMI] 38.0-38.9, adult | CPT/HCPCS: 99212 ==

== ENCOUNTER 2023-07-13 13:44 | Outpatient (AMB) | payer OTHER, SELFPAY ==
--- NOTE | 2023-07-13 13:50 | MHC.OFFVIS ---
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 Intake Note: NPV Talent Development Manager Required: No Accompanied by: Self / Same As Patient Allergies No Known Allergies Allergy (Verified 07/13/23 13:58) Medication List - Last Reconciled 07/13/23 by Dimas Jeffries MD aspirin (Adult Aspirin Regimen) 81 mg PO DAILY atorvastatin 40 mg PO BEDTIME chlorhexidine gluconate 4% (Hibiclens) 1 appl topical BID cholecalciferol (vitamin D3) 125 mcg PO DAILY 90 days cilostazol 100 mg PO BID clopidogrel 75 mg PO DAILY clotrimazole 1% 1 appl topical BID cyanocobalamin (vitamin B-12) 500 mcg PO DAILY 90 days fluticasone propion-salmeterol 250-50 mcg/dose (Advair Diskus) 1 inh inhalation BID gabapentin 300 mg PO BEDTIME vitamin A palmitate 3,000 mcg PO DAILY 90 days HPI HPI Comments History of Present Illness Details Mary has been referred for evaluation for abnormal EKG. Thought to have PACs. Patient does not have any symptoms from this. Seems to have a strong vascular history. Prior smoker. It seems that she underwent cardiac catheterization 2018 for chest pains. That showed nonobstructive disease only. From vascular standpoint, she also has a history of vascular bypass-per documentation, aorta-iliac/femoral bypass. Overall, she does not have any clear cardiac symptoms. No angina or shortness of breath or in fact anything cardiac stenting. She states she can do several miles on the indoor bike with no issues. She can also go up and down stairs without any chest pains or other cardiac symptoms. [facility] Medical History (Updated 07/13/23 @ 14:14 by Dimas Jeffries MD) Atherosclerotic cardiovascular disease Surgical History Hx of colonoscopy Hx of tonsillectomy Hx of foot surgery Hx of carpal tunnel repair History of mmbvy-zmggk-jlowzoz bypass Family History Mother COPD (chronic obstructive pulmonary disease) Hypertension Father Peripheral arterial disease Brother No problems noted. Brother Heart disease Sister No problems noted. Son No problems noted. Daughter No problems noted. Social History Alcohol intake: never Patient Tobacco Use Status: Former Tobacco user Review of Systems Const Denies weakness Eyes Denies loss of vision ENT Denies dizziness Card Denies chest pain, Denies chest pain with activity, Denies syncope, Denies rapid heart rate, Denies pedal edema, Denies edema, Denies leg edema, Denies lightheadedness, Denies palpitations, Denies dyspnea, Denies dyspnea on exertion and Denies orthopnea Resp Denies cough, Denies dyspnea, Denies dyspnea on exertion and Denies wheezing GI Denies hematochezia and Denies change in stool character Denies hematuria, Denies urinary frequency and Denies dysuria Musc Denies abnormal gait, Denies muscle cramps, Denies muscle weakness, Denies numbness, Denies radiating pain into limb and Denies tingling Skin/Breast Denies nail changes and Denies rash Neuro Denies Abnormal speech present, Denies abnormal gait, Denies dizziness, Denies syncope, Denies loss of vision, Denies memory loss, Denies numbness, Denies tingling and Denies weakness Psych Denies depression and Denies memory loss Endo Denies palpitations Aller/Immun Denies wheezing Physical Exam Vital Signs: Last Vital Signs Pulse 95 07/13/23 13:52 BP 132/62 07/13/23 13:52 BMI result Body Mass Index 38.8 Const General: comfortable and no acute distress Orientation/consciousness: patient oriented x3 HEENT Other: Unremarkable Head: Yes normal to inspection Neck Neck: Yes normal visual inspection Chest Chest palpation & inspection: normal inspection of the chest Resp Auscultation: clear to auscultation bilaterally Cardio Palpation: normal PMI Heart sounds: S1 normal heart sound present, S2 normal heart sound present, no gallops, no murmurs and no rubs GI Palpation (GI): Soft to palpation Back/Spine/Pelvis Other: unremarkable Skin General skin exam: no rashes or lesions noted Neuro General: patient oriented x3 Speech: No Abnormal speech present Extrem General: Yes normal to inspection Psych Mental Status: mental status grossly normal Assessment & Plan Assessment & Plan (1) Preoperative cardiovascular examination: Code(s): Z01.810 - Encounter for preprocedural cardiovascular examination (2) Atherosclerotic cardiovascular disease: Code(s): I25.10 - Atherosclerotic heart disease of [place] coronary artery without angina pectoris (3) PAC (premature atrial contraction): Code(s): I49.1 - Atrial premature depolarization Plan In the recent EKG, underlying rhythm is sinus bradycardia at 56/Min; premature atrial contraction but otherwise unremarkable. Normal [place] and corrected QT. Cardiac catheterization 2019-nonobstructive disease only. Nothing hemodynamically significant. Overall, asymptomatic PACs and established vascular disease but no clinical symptoms from either. We will get an echocardiogram for cardiac function assessment. Holter monitor also to be completed. Once these are reviewed, we can plan further. Orders: Orders CA echo transthoracic complete Today I25.10 - Atherosclerotic heart disease of [place] coronary artery without angina pectoris, I49.1 - Atrial premature depolarization ECG 3 day holter monitor Today I49.1 - Atrial premature depolarization Coding Level of Care Code New Pt Level 4 (78463) Diagnoses Preoperative cardiovascular examination Z01.810 Atherosclerotic cardiovascular disease I25.10 PAC (premature atrial contraction) I49.1
[2023-07-13 13:52] VITALS: BP 132/62; PULSE 95; BMI 38.8
== END 2023-07-13 14:19 | disposition home or self-care (01) ==
PROVIDERS: PCP Internal Medicine; Visit Provider Internal Medicine
DX: Z01.810 Encounter for preprocedural cardiovascular examination (principal); I25.10 Atherosclerotic heart disease of native coronary artery without angina pectoris; I49.1 Atrial premature depolarization
CPT/HCPCS: 99204

== ENCOUNTER → 2023-07-13 13:44 | Outpatient (BNVA) | payer OTHER, SELFPAY | PROVIDERS: PCP Internal Medicine; Visit Provider Internal Medicine ==

== ENCOUNTER 2023-07-21 10:18 | Outpatient (AMB) | payer OTHER, SELFPAY ==
--- NOTE | 2023-07-21 10:08 | A.OFFVIS_ITS ---
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 She is very motivated and positive. She speaks about how dramatically her life has changed since starting our program. Feels that she found a new freedom. Can walk again without fear. I will do whatever you people tell me to Exercise: 20 minutes twice per day on her stationary bike , feels amazing. [facility] online classes: completed Dietary counseling reduction Who buys your food self Who prepares/cooks your food self Diagnosis Nutrition problem #1 overweight/obesity As related to (etiology) #1 excess energy intake and physical inactivity As evidenced by (sign/symptom) #1 high BMI Monitoring/Goals Nutrition problem monitoring total energy intake, level of knowledge/skill, total PRO intake, total CHO intake, weight and oral fluids Outcome progress progressing Learning/Education Readiness to learn excellent Stages of change action Educational materials provided Yes Most Recent Diabetes Results: No Data to Display [facility] Medical History (Updated 07/13/23 @ 14:14 by Dimas Jeffries MD) Atherosclerotic cardiovascular disease Surgical History Hx of colonoscopy Hx of tonsillectomy Hx of foot surgery Hx of carpal tunnel repair History of bxgcp-eiidf-axyanwc bypass Family History Mother COPD (chronic obstructive pulmonary disease) Hypertension Father Peripheral arterial disease Brother No problems noted. Brother Heart disease Sister No problems noted. Son No problems noted. Daughter No problems noted. Social History Alcohol intake: never Patient Tobacco Use Status: Former Tobacco user Assessment & Plan Assessment & Plan (1) Obesity (BMI 30-39.9): Code(s): E66.9 - Obesity, unspecified Patient Instructions: Patient is cleared from a nutrition standpoint for bariatric surgery. Educational requirements have been completed. Reviewed vitamin supplementation and commitment to protein shake for several months post surgery. Encouraged communication with office as needed Telehealth Telehealth Location of provider rendering services: practice address Location of patient: address on file Patient Identification confirmed using: Name, : Yes Telehealth method: voice only Patient verbally consented to treatment: Yes Patient verbally consented to billing insurance company: Yes Patient informed of any privacy concerns related to visit: Yes Minutes spent on Phone/Video with Pt.: 25 Coding Level of Care Code Nutr Indiv Subseq (34527) Diagnoses Obesity (BMI 30-39.9) E66.9 Time Spent (min) 25
== END 2023-07-21 10:29 | disposition home or self-care (01) ==
LOC: HO.HBS 10:18
PROVIDERS: PCP Internal Medicine; Visit Provider Dietitian, Registered
DX: E66.9 Obesity, unspecified (principal)

== ENCOUNTER → 2023-07-21 10:18 | Outpatient (BNVA) | payer OTHER, SELFPAY | PROVIDERS: PCP Internal Medicine; Visit Provider Dietitian, Registered | DX: E66.9 Obesity, unspecified (principal); I73.9 Peripheral vascular disease, unspecified; E78.00 Pure hypercholesterolemia, unspecified | CPT/HCPCS: 97803 ==

== ENCOUNTER 2023-07-26 08:47 | Outpatient (AMB) | payer OTHER, SELFPAY ==
--- NOTE | 2023-07-26 08:50 | MHC.OFFVISWM ---
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 Allergies No Known Allergies Allergy (Verified 07/26/23 09:01) Medication List - Last Reconciled 07/26/23 by MICAELA Leahc aspirin (Adult Aspirin Regimen) 81 mg PO DAILY atorvastatin 40 mg PO BEDTIME chlorhexidine gluconate 4% (Hibiclens) 1 appl topical BID cholecalciferol (vitamin D3) 125 mcg PO DAILY 90 days cilostazol 100 mg PO BID clopidogrel 75 mg PO DAILY clotrimazole 1% 1 appl topical BID cyanocobalamin (vitamin B-12) 500 mcg PO DAILY 90 days fluticasone propion-salmeterol 250-50 mcg/dose (Advair Diskus) 1 inh inhalation BID gabapentin 300 mg PO BEDTIME vitamin A palmitate 3,000 mcg PO DAILY 90 days HPI HPI Comments History of Present Illness Details The patient is a pleasant 63 year old female who returns to the clinic for pre-operative surgical weight loss management. They were last seen in the office on 06/30/23, recorded weight at that time was 202.4 pounds, with a BMI of 38.2. Today's weight is 199.4 pounds and BMI is 37.7. There has been a weight loss of 18.6 pounds since initiating the surgical weight loss program on 04/02/23 with a total body weight loss of 8.5 %. Continues w bilateral foot pain and is being followed by IDALMIS Foley and is scheduled to see him in follow up for US tomorrow. Pre op work up completed as follows: SWL classes:? 01/30 BH appts: cleared 05/20/23 ? ? RD appts: cleared 07/21/23 Labs: 05/06/23- low A, D, B12:307 H. pylori: 05/06/23-neg CXR: 05/06/23-nad EK05/06/23-sinus yuliya with premature SVC- consult to cards placed 05/31/23, seen 07/13/23-holter/echo ordered and scheduled for mid July w cards f/u early August ABD U/S: 07/27/23 UGI: 08/20/23 Current meal plan includes: 2 Orgain shakes ([employer], [employer], [employer]), (1 scoop in 8 oz low fat unsweetened almond milk each) First shake at 6am-8am, Second shake at? 10am-12pm 1 protein bar ([employer] Perfect bars at [employer], [employer], or [employer]) at 2pm-4pm. Dinner at 5pm (8 forks of protein and 8 forks of salad/vegetables). 1/2 cup fresh berries (strawberries, blueberries, raspberries, blackberries) at 7pm-8pm. Drinking 64? oz of water Current exercise plan includes: bought a stationary bike and is doing two 20 minute session, 4 miles each, 90-95 calories per session [facility] Medical History (Updated 07/13/23 @ 14:14 by Dimas Jeffries MD) Atherosclerotic cardiovascular disease Surgical History Hx of colonoscopy Hx of tonsillectomy Hx of foot surgery Hx of carpal tunnel repair History of jxbup-brwin-exbhewi bypass Family History Mother COPD (chronic obstructive pulmonary disease) Hypertension Father Peripheral arterial disease Brother No problems noted. Brother Heart disease Sister No problems noted. Son No problems noted. Daughter No problems noted. Social History Alcohol intake: never Patient Tobacco Use Status: Former Tobacco user Review of Systems Const All systems reviewed & are unremarkable except as noted in HPI and below Physical Exam Vital Signs: Last Vital Signs Temp 98.3 F 07/26/23 08:58 Pulse 88 07/26/23 08:58 BP 138/65 07/26/23 08:58 Pulse Ox 95 07/26/23 08:58 Oxygen Delivery Method Room Air 10/02/23 08:58 BMI result Body Mass Index 37.7 Const General: healthy appearing and no acute distress Resp Effort & Inspection: normal respiratory effort Auscultation: clear to auscultation bilaterally Cardio Rate: regular rate Rhythm: abnormal rhythm with ectopic beats GI Auscultation: normal bowel sounds Extrem General: Yes normal to inspection Assessment & Plan Assessment & Plan (1) Obesity (BMI 30-39.9): Code(s): E66.9 - Obesity, unspecified Plan: Pt very satisfied with meal plan-continue She has made good gains on the use of her stationary bike 4 miles 2 x daily, encouraged to continue to increase UZgi scheduled for 07/2723 reminded of US tomorrow has f/u with IR for pain in her feet to r/u LE vascular etiology Has echo and holter scheduled for mid july and then cardilogy f/u in early august Will refer to Dr Martinez for continued per-operative care. Coding Level of Care Code Est Pt Level 3 (87753) Diagnoses Obesity (BMI 30-39.9) E66.9
[2023-07-26 08:58] VITALS: BP 138/65; PULSE 88; TEMP 36.8; O2SAT 95; BMI 37.7
== END 2023-07-26 09:53 | disposition home or self-care (01) ==
PROVIDERS: PCP Internal Medicine; Visit Provider Physician Assistant Surgical
DX: E66.9 Obesity, unspecified (principal); Z68.37 Body mass index [BMI] 37.0-37.9, adult
CPT/HCPCS: 99213

== ENCOUNTER → 2023-07-26 08:47 | Outpatient (BNVA) | payer OTHER, SELFPAY | PROVIDERS: PCP Internal Medicine; Visit Provider Physician Assistant Surgical | DX: E66.01 Morbid (severe) obesity due to excess calories (principal); Z68.37 Body mass index [BMI] 37.0-37.9, adult | CPT/HCPCS: 99212 ==

== ENCOUNTER 2023-07-27 08:14 | Outpatient (REF) | payer OTHER, SELFPAY ==
--- NOTE | ~2023-07-27 | FL_ITS ---
EXAMINATION: XR FLUOROSCOPY UPPER GI WITH AIR CLINICAL INFORMATION: Preop bariatric; morbid obesity due to excess calories. COMPARISON: No relevant prior. TECHNIQUE: Fluoroscopic air contrast upper GI examination was performed utilizing standard techniques with thin and thick barium and effervescent granules. Numerous spot images were obtained, as well as image hold fluoroscopy runs. FINDINGS: No tracheal penetration, glottic or subglottic aspiration identified. Hypopharyngeal structures appear normal without evidence of mass or diverticulum. There was no significant cricopharyngeal achalasia. Dual and single contrast images of the esophagus demonstrate normal caliber, contour, and mucosal pattern. No evidence of stricture, mass, or ulcerations identified. Primary esophageal peristalsis was normal and propulsive, although followed by moderate tertiary contractions which were nonpropulsive. There is either a tiny type I hiatus hernia, versus a prominent esophageal vestibule. A tiny type I hiatus hernia is favored. No significant gastroesophageal reflux was seen during the course of the examination and on reflux views. Dual contrast and single contrast images of the stomach demonstrated normal contour and mucosal pattern without evidence of mass, ulceration, or other abnormality. Contrast freely passed into the gastric antrum and duodenal bulb without delay. Single and air-contrast images of the duodenal bulb demonstrate no abnormality. The duodenal sweep has a normal appearance, course, and mucosal fold appearance. The imaged proximal jejunum has a normal fold pattern and caliber. There is moderate calcification of the aortic arch noted. FLUOROSCOPY TIME: 5 minutes, 3 seconds. Number of Spot Images: 14 fluoroscopic spot images taken; 4 fluoroscopic image hold images obtained; 3 fluoroscopic image hold runs were obtained. DOSE AREA PRODUCT: [id number] uGy-m2 (microgray-meter squared) FL/FL upper GI w air IMPRESSION: 1. Tiny type I hiatus hernia suspected. No definite gastroesophageal reflux. 2. Moderate presbyesophagus. Primary peristalsis was however strong and normal. 3. The stomach, duodenal bulb, sweep, and imaged small bowel demonstrate no abnormalities.
--- NOTE | ~2023-07-27 | US_ITS ---
EXAMINATION: US COMPLETE ABDOMEN WITH LIVER ELASTOGRAPHY CLINICAL INFORMATION: Severe obesity. COMPARISON: None available. TECHNIQUE: Real-time imaging of the abdominal viscera. Noninvasive ultrasound liver fibrosis assessment is performed using Yasmin ElastPQ point quantification shear wave elastography (2D-SWE) with a C5-2 MHz transducer. Multiple elastography samples are obtained. FINDINGS: PANCREAS: Normal. The visualized pancreatic head and body are normal in appearance. The remainder of the pancreas is obscured from visualization by the overlying bowel gas. ABDOMINAL AORTA: The proximal, middle, and distal aortic segments are normal in caliber. INFERIOR VENA CAVA: Visualized portions are normal. LIVER: Normal. The liver demonstrates normal size, contour and echogenicity. No focal lesion or intrahepatic biliary duct dilatation. The right lobe measures 18.1 cm in length. The left lobe measures 9.7 cm in length. Portal flow is towards the liver (hepatopetal). Shear wave liver elastography median stiffness is 1.10 m/s (reference: normal median stiffness is 1.3 m/s or less). IQR/median stiffness to assess sampling precision is 0.12 (reference: good quality data set is IQR/median stiffness of 0.15 or less). GALLBLADDER: Normal. The gallbladder is physiologically distended without evidence of stones, sludge, polyps, wall thickening or pericholecystic fluid. COMMON BILE DUCT: Normal in caliber measuring 0.4 cm in diameter. RIGHT KIDNEY: Normal. No hydronephrosis. No renal calculi or focal parenchymal lesions. The kidney measures 11.7 cm in maximum dimension. LEFT KIDNEY: Normal. No hydronephrosis. No renal calculi or focal parenchymal lesions. The kidney measures 10.4 cm in maximum dimension. SPLEEN: Normal. The spleen measures 8.7 cm in maximum dimension. FREE FLUID: None. US/US abdomen comp w elastography IMPRESSION: 1. There is generalized increase in hepatic echotexture, consistent with fatty infiltration or hepatocellular disease. Please correlate clinically. No focal hepatic mass or intrahepatic biliary dilatation is seen. 2. There is mild hepatomegaly. 3. Liver elastography: Measurements are consistent with a high probability of normal liver stiffness. REFERENCE: Society of Radiologists in Ultrasound Liver Stiffness Thresholds (2020): LIVER STIFFNESS THRESHOLDS: *Liver Stiffness equal or less than 1.3 m/s: High probability of being normal. *Liver Stiffness less than 1.7 m/s: In the absence of other known clinical signs, rules out compensated advanced chronic liver disease. *Liver Stiffness 1.7-2.1 m/s: Suggestive of compensated advanced chronic liver disease but need further test for confirmation. *Liver Stiffness over 2.1 m/s: Rules in compensated advanced chronic liver disease. *Liver Stiffness over 2.4 m/s: Suggestive of clinically significant portal hypertension. QUALITY OF DATA SET: *IQR/Median value equal or less than 0.15 implies a quality data set. *IQR/Median value over 0.15 implies a poor quality data set. SIGNIFICANT CHANGE FROM PRIOR EXAM: Significant change if liver stiffness measurement is 10% or greater from prior exam. OTHER CONSIDERATIONS: The stage of liver fibrosis may be overestimated in the setting of acute hepatitis, liver inflammation, elevated liver function tests, hepatic vascular congestion, obstructive cholestasis, non-fasting state, and infiltrative diseases such as amyloidosis and lymphoma. In some patients with NAFLD, the liver stiffness thresholds for compensated advanced chronic liver disease may be lower. In causes other than viral hepatitis and NAFLD, liver stiffness thresholds are not well established.
== END 2023-07-27 08:15 | disposition home or self-care (01) ==
LOC: HO.US 08:14
PROVIDERS: PCP Internal Medicine; Visit Provider Physician Assistant Surgical
DX: E66.01 Morbid (severe) obesity due to excess calories (principal); E78.00 Pure hypercholesterolemia, unspecified; I73.9 Peripheral vascular disease, unspecified
CPT/HCPCS: 74246; 76705; 76981

== ENCOUNTER → 2023-07-27 08:16 | Outpatient (BNV) | payer OTHER, SELFPAY | PROVIDERS: PCP Internal Medicine; Visit Provider Radiology Diagnostic Radiology | DX: E66.01 Morbid (severe) obesity due to excess calories (principal) | CPT/HCPCS: 74246 ==

== ENCOUNTER → 2023-08-16 08:42 | Outpatient (REF) | payer OTHER, SELFPAY ==
--- NOTE | 2023-08-16 08:47 | CA_ITS ---
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 coronary artery without... Study Quality: Adequate ECG Rhythm: Bradycardia with PACs Conclusions: - 1. Hyperdynamic LV ejection fraction greater than 70% with grade 1 diastolic dysfunction 2. Normal cardiac valvular Dopplers 3. No gross pericardial effusion Findings Left Ventricle Normal left ventricular cavity size. There is normal left ventricular wall thickness. The left ventricular systolic function is hyperdynamic. The visually estimated ejection fraction is >70%. Spectral Doppler is indicative of an impaired relaxation filling pattern. E/E prime ratio is <8, consistent with normal filling pressures. Evidence suggests grade I (mild) diastolic dysfunction. Peak GLS is -18.6%, within normal limits. Right Ventricle Normal right ventricular cavity size and systolic function. Atria Both atria are normal in size. There is no evidence of interatrial shunt. Aortic Valve Normal aortic valve structure and function. There is no aortic valve stenosis. There is no aortic valve regurgitation. Mitral Valve Normal mitral valve structure and function. There is trace mitral valve regurgitation. There is no mitral valve stenosis. Pulmonic Valve The pulmonic valve is likely normal. Tricuspid Valve Likely normal tricuspid valve structure and function. Tricuspid regurgitation envelope is inadequate for calculation of right ventricular systolic pressure. Great Vessels All visible segments of the aorta are normal in size. The pulmonary artery was not well visualized. Venous The inferior vena cava is normal in size and collapses greater than 50% with inspiration. Pericardium/Pleural There is no evidence of pericardial effusion. Prior Study Comparison No prior study available for comparison. Measurements 2D Linear Measurements IVSd: 0.99 0.6-0.9/0.6-1.0 cm LVIDd: 4.68 3.9-5.3/4.2-5.9 cm LVIDd Index: 2.48 2.4-3.2/2.2-3.1 cm/m2 LVIDs: 2.30 2.0-3.6 cm LVPWd: 0.90 0.7-1.1 cm LA Diam: 3.40 2.7-3.8/3.0-4.0 cm LAIDs Index: 1.80 1.5-2.3 cm/m2 LV Mass: 189.14 67-162/88-224 g LV Mass Index: 100.08 43-95/49-115 g/m2 LVOT Diam: 1.80 3.0+(-)1.3 cm 2D Systolic Function EF 4C: 76.00 >55% EF 2C: 64.40 >55% EF BiP: 71.10 >55% Mitral Valve MV Pk E: 0.82 MV PK A: 0.95 MV Decel Time: 237.00 E/A: 0.90 E'Lateral: 9.25 E'Medial: 6.42 E/E' Med: 12.80 E/E' Lat: 8.90 PHT: 69.00 MVA PHT: 3.19 Decel [place]: 3.47 Aortic Valve AoV Pk Schuyler: 1.33 AoV Mn Schuyler: 0.91 AoV VTI: 0.29 AoV Pk Grad: 7.00 Aov Mn Grad: 4.00 STEPHANIE Cont.VTI: 2.30 LVOT LVOT Pk Schuyler: 1.07 LVOT Mn Schuyler: 0.78 LVOT VTI: 0.26 LVOT Pk Grad: 5.00 LVOT Mn Grad: 3.00 LVOT Diam: 1.80 LVOT Area: 2.54 Diastolic Function MV Pk E: 0.82 MV Pk A: 0.95 E/A: 0.90 E'Medial: 6.42 E/E' Med: 12.80 E' Laterial: 9.25 E/E' Lat: 8.90 Right Ventricle TAPSE (mm): 25.80 TVS' Schuyler: 11.10 Tricuspid Valve RA Press: 3.00 Great Vessels Aorta Sinus of Valsalva: 3.50 2.0-3.5 cm Ao Asc: 3.30 2.1-3.4 cm Pulmonary Valve PV Pk Schuyler: 1.07 Peak PV Grad: 5.00 Updated in Other Vendor System with Status of Final Manny Diaz MD electronically signed on 08/17/2023 12:02:36 PM with status of Final
--- NOTE | 2023-08-16 08:47 | HM_ITS ---
Conclusion: 1. Patient was monitored for total period of 2 days and 23 hours 2. Baseline was normal sinus with average heart of 86 beats per minute 3. No significant pauses noted 4. Frequent PACs noted with total burden of 15% 5. Patient marked the counter 2 times with associated symptoms of heart racing correlated with PACs MTDD
== END ==
LOC: HO.CARD 08:42
PROVIDERS: PCP Internal Medicine; Visit Provider Internal Medicine
DX: I49.1 Atrial premature depolarization (principal); I25.10 Atherosclerotic heart disease of native coronary artery without angina pectoris
CPT/HCPCS: 93242; 93306; 93356

== ENCOUNTER → 2023-08-16 08:47 | Outpatient (BNV) | payer OTHER, SELFPAY | PROVIDERS: PCP Internal Medicine; Visit Provider Internal Medicine Cardiovascular Disease | DX: I49.1 Atrial premature depolarization (principal) | CPT/HCPCS: 93244; 93306 ==

== ENCOUNTER → 2023-08-20 08:18 | Outpatient (BNVA) | payer OTHER, SELFPAY | PROVIDERS: PCP Internal Medicine; Visit Provider Surgery ==

== ENCOUNTER 2023-08-25 08:26 | Outpatient (AMB) | payer OTHER, SELFPAY ==
--- NOTE | 2023-08-25 13:34 | MHC.OFFVISWM ---
Intake VS Expanded 08/25/23 13:56 Height 5 ft 1 in Weight 201 lb 1 oz BMI 38.0 Body Fat % 45 Body Fat Mass 90.4 Fat Free Mass 110.6 Visceral Fat Rating 16 Basal Metabolic Rate/Score 1,409 Intake Visit Reasons: TV Consult/Transfer Petr *3RD R/S* Allergies No Known Allergies Allergy (Verified 08/25/23 13:34) Medication List - Last Reconciled 08/25/23 by Luis Felipe Moon MD aspirin (Adult Aspirin Regimen) 81 mg PO DAILY atorvastatin 40 mg PO BEDTIME chlorhexidine gluconate 4% (Hibiclens) 1 appl topical BID cholecalciferol (vitamin D3) 125 mcg PO DAILY 90 days cilostazol 100 mg PO BID clopidogrel (Plavix) 75 mg PO DAILY clotrimazole 1% 1 appl topical BID cyanocobalamin (vitamin B-12) 500 mcg PO DAILY 90 days fluticasone propion-salmeterol 250-50 mcg/dose (Advair Diskus) 1 inh inhalation BID gabapentin 300 mg PO BEDTIME vitamin A palmitate 3,000 mcg PO DAILY 90 days HPI TV Consult/Transfer Petr *3RD R/S* HPI Details Start time: 1.10pm, End time: 2pm ?I spent 40 minutes speaking with the patient on the phone plus an additional 10 minutes reviewing and updating records for a total of 50 minutes HPI Comments History of Present Illness Details Overall weight loss: 18.5lbs, or 8.5% TBWL Is doing 2 Premier powdered protein shakes (1 scoop each in almond milk), 1/2 Atkins protein bar and one meal (4 forks of protein and 8 forks of salad or vegetables) Snack: apple Exercise: is doing stationary bike twice per day for 110 calories total for 3-4 days per week [facility] Medical History (Updated 08/25/23 @ 14:01 by Luis Felipe Moon MD) Plantar fasciitis Neuropathy COPD (chronic obstructive pulmonary disease) Peripheral vascular disease Atherosclerotic cardiovascular disease Surgical History Hx of colonoscopy Hx of tonsillectomy Hx of foot surgery Hx of carpal tunnel repair History of avjne-obcud-fwcuiev bypass Family History Mother COPD (chronic obstructive pulmonary disease) Hypertension Father Peripheral arterial disease Brother No problems noted. Brother Heart disease Sister No problems noted. Son No problems noted. Daughter No problems noted. Social History Alcohol intake: never Patient Tobacco Use Status: Former Tobacco user Assessment & Plan Assessment & Plan (1) Hypercholesterolemia: Code(s): E78.00 - Pure hypercholesterolemia, unspecified (2) Peripheral vascular disease: Code(s): I73.9 - Peripheral vascular disease, unspecified (3) COPD (chronic obstructive pulmonary disease): Code(s): J44.9 - Chronic obstructive pulmonary disease, unspecified (4) Obesity: Code(s): E66.9 - Obesity, unspecified Plan: 1. Plan for lap sleeve gastrectomy including upper GI endoscopy. All tests has been completed and reviewed and the patient is cleared for the surgery. ?If diaphragmatic or ventral hernias are present at time of surgery, these will be repaired laparoscopically as well. Risks and complications were discussed in detail including possible conversion to an open procedure, anastomotic leak, bleeding requiring transfusion, small bowel obstruction, , DVT and pulmonary embolism, cardiac, or pulmonary complications, as fpc complications such as anastomotic ulcer, insufficient weight loss and vitamin deficiencies. I emphasized the importance of close follow-up, adherence to instructions and good communication. So far she has proven to be an excellent communicator and very compliant with all our directions accomplishing a great weight loss. I believe that she is an excellent candidate and she is ready. 2. Change nutritional plan to 2 Premier powdered protein shakes (HALF scoop each in almond milk) at 6am-8am and 9am-11am, 2 Atkins protein bars at 12pm-2pm and 3pm-5pm and one meal (EIGHT forks of protein and EIGHT forks of salad or vegetables). If hungry, please do another Premier protein shake (HALF scoop in 8oz almond milk) at 8pm-10pm. Snack: apple 3. Exercise: increase stationary bike to 100 calories per workout session, twice per day for 200 calories per day total, 7 days per week 4. Send me weight measurements weekly on Fridays (5) BMI 38.0-38.9,adult: Code(s): Z68.38 - Body mass index [BMI] 38.0-38.9, adult Telehealth Telehealth Location of provider rendering services: practice address Location of patient: address on file Patient Identification confirmed using: Name, : Yes Telehealth method: voice only Patient verbally consented to treatment: Yes Patient verbally consented to billing insurance company: Yes Patient informed of any privacy concerns related to visit: Yes Minutes spent on Phone/Video with Pt.: 50 Coding Level of Care Code Tele Est Pt Level 5 (22790) Diagnoses Hypercholesterolemia E78.00 Peripheral vascular disease I73.9 COPD (chronic obstructive pulmonary disease) J44.9 Obesity E66.9 BMI 38.0-38.9,adult Z68.38 Time Spent (min) 50
[2023-08-25 13:56] VITALS: BMI 38.0
== END 2023-08-25 15:01 | disposition home or self-care (01) ==
LOC: HO.HBS 08:26
PROVIDERS: PCP Internal Medicine; Visit Provider Surgery
DX: E66.9 Obesity, unspecified (principal); Z68.38 Body mass index [BMI] 38.0-38.9, adult; I73.9 Peripheral vascular disease, unspecified; J44.9 Chronic obstructive pulmonary disease, unspecified
CPT/HCPCS: 99215

== ENCOUNTER → 2023-08-25 08:26 | Outpatient (BNVA) | payer OTHER, SELFPAY | PROVIDERS: PCP Internal Medicine; Visit Provider Surgery | DX: E66.9 Obesity, unspecified (principal); Z68.38 Body mass index [BMI] 38.0-38.9, adult; E78.00 Pure hypercholesterolemia, unspecified; I73.9 Peripheral vascular disease, unspecified; J44.9 Chronic obstructive pulmonary disease, unspecified; Z01.810 Encounter for preprocedural cardiovascular examination; I25.10 Atherosclerotic heart disease of native coronary artery without angina pectoris; I49.1 Atrial premature depolarization | CPT/HCPCS: 99212 ==

== ENCOUNTER 2023-08-25 11:08 | Outpatient (AMB) | payer OTHER, SELFPAY ==
--- NOTE | 2023-08-25 11:13 | A.OFFVIS_ITS ---
Intake Vital Signs 08/25/23 11:14 Height 5 ft 1 in Weight 202 lb 6.15 oz BMI 38.2 BP 110/58 L Blood Pressure Location Lt brachial Position Sitting Pulse 69 Intake Visit Reasons: 6 wk fu after echo/holter Intake Note: follow up Maintenance Groundskeeper Required: No Accompanied by: Self / Same As Patient Allergies No Known Allergies Allergy (Verified 08/25/23 11:15) Medication List - Last Reconciled 08/25/23 by Dimas Jeffries MD aspirin (Adult Aspirin Regimen) 81 mg PO DAILY atorvastatin 40 mg PO BEDTIME chlorhexidine gluconate 4% (Hibiclens) 1 appl topical BID cholecalciferol (vitamin D3) 125 mcg PO DAILY 90 days cilostazol 100 mg PO BID clotrimazole 1% 1 appl topical BID cyanocobalamin (vitamin B-12) 500 mcg PO DAILY 90 days fluticasone propion-salmeterol 250-50 mcg/dose (Advair Diskus) 1 inh inhalation BID gabapentin 300 mg PO BEDTIME vitamin A palmitate 3,000 mcg PO DAILY 90 days HPI HPI Comments History of Present Illness Details Mary returns for follow-up. Recently seen in consultation regarding an abnormal EKG. Thought to have PACs. Patient does not have any symptoms from this. Seems to have a strong vascular history. Prior smoker. It seems that she underwent cardiac catheterization 2018 for chest pains. That showed nonobstructive disease only. From vascular standpoint, she also has a history of vascular bypass-per documentation, aorta-iliac/femoral bypass. Overall, she does not have any clear cardiac symptoms. No angina or shortness of breath or in fact anything cardiac stenting. She states she can do several miles on the indoor bike with no issues. She can also go up and down stairs without any chest pains or other cardiac symptoms. Since last seen, she underwent echocardiogram and Holter. Overall, feels good. No new issues. [facility] Medical History (Updated 07/13/23 @ 14:14 by Dimas Jeffries MD) Atherosclerotic cardiovascular disease Surgical History Hx of colonoscopy Hx of tonsillectomy Hx of foot surgery Hx of carpal tunnel repair History of grksw-zswzm-dcpbbhd bypass Family History Mother COPD (chronic obstructive pulmonary disease) Hypertension Father Peripheral arterial disease Brother No problems noted. Brother Heart disease Sister No problems noted. Son No problems noted. Daughter No problems noted. Social History Alcohol intake: never Patient Tobacco Use Status: Former Tobacco user Review of Systems Const Denies weakness Eyes Denies loss of vision ENT Denies dizziness Card Denies chest pain, Denies chest pain with activity, Denies syncope, Denies rapid heart rate, Denies pedal edema, Denies edema, Denies leg edema, Denies lightheadedness, Denies palpitations, Denies dyspnea, Denies dyspnea on exertion and Denies orthopnea Resp Denies cough, Denies dyspnea, Denies dyspnea on exertion and Denies wheezing GI Denies hematochezia and Denies change in stool character Denies hematuria, Denies urinary frequency and Denies dysuria Musc Denies abnormal gait, Denies muscle cramps, Denies muscle weakness, Denies numbness, Denies radiating pain into limb and Denies tingling Skin/Breast Denies nail changes and Denies rash Neuro Denies Abnormal speech present, Denies abnormal gait, Denies dizziness, Denies syncope, Denies loss of vision, Denies memory loss, Denies numbness, Denies tingling and Denies weakness Psych Denies depression and Denies memory loss Endo Denies palpitations Aller/Immun Denies wheezing Physical Exam Vital Signs: Last Vital Signs Pulse 69 08/25/23 11:14 BP 110/58 L 08/25/23 11:14 BMI result Body Mass Index 38.2 Const General: comfortable and no acute distress Orientation/consciousness: patient oriented x3 HEENT Other: Unremarkable Head: Yes normal to inspection Neck Neck: Yes normal visual inspection Chest Chest palpation & inspection: normal inspection of the chest Resp Auscultation: clear to auscultation bilaterally Cardio Palpation: normal PMI Heart sounds: S1 normal heart sound present, S2 normal heart sound present, no gallops, no murmurs and no rubs GI Palpation (GI): Soft to palpation Back/Spine/Pelvis Other: unremarkable Skin General skin exam: no rashes or lesions noted Neuro General: patient oriented x3 Speech: No Abnormal speech present Extrem General: Yes normal to inspection Psych Mental Status: mental status grossly normal Assessment & Plan Assessment & Plan (1) Preoperative cardiovascular examination: Code(s): Z01.810 - Encounter for preprocedural cardiovascular examination (2) Atherosclerotic cardiovascular disease: Code(s): I25.10 - Atherosclerotic heart disease of [place] coronary artery without angina pectoris (3) PAC (premature atrial contraction): Code(s): I49.1 - Atrial premature depolarization Plan In the recent EKG, underlying rhythm is sinus bradycardia at 56/Min; premature atrial contraction but otherwise unremarkable. Normal [place] and corrected QT. Cardiac catheterization 2019-nonobstructive disease only. Nothing hemodynamically significant. Echocardiogram with hyperdynamic LVEF; no significant valvular issues. Holter monitor shows underlying sinus rhythm with frequent PACs with a burden of 15% but otherwise unremarkable. Overall, there is increased risk of atrial fibrillation in the future but otherwise no specific management for now. Losing weight will certainly help. We can also screen for obstructive sleep apnea with home sleep study. With regard to bariatric surgery, may proceed as planned. Low to intermediate cardiac risk. Orders: Orders RT home sleep study Today G47.33 - Obstructive sleep apnea (adult) (pediatric) ECG 3 day holter monitor 51 Weeks I49.1 - Atrial premature depolarization, R00.2 - Palpitations Coding Level of Care Code Est Pt Level 4 (88936) Diagnoses Preoperative cardiovascular examination Z01.810 Atherosclerotic cardiovascular disease I25.10 PAC (premature atrial contraction) I49.1
[2023-08-25 11:14] VITALS: BP 110/58; PULSE 69; BMI 38.2
== END 2023-08-25 11:26 | disposition home or self-care (01) ==
PROVIDERS: PCP Internal Medicine; Visit Provider Internal Medicine
DX: Z01.810 Encounter for preprocedural cardiovascular examination (principal); I25.10 Atherosclerotic heart disease of native coronary artery without angina pectoris; I49.1 Atrial premature depolarization
CPT/HCPCS: 99214

== ENCOUNTER 2023-09-08 08:12 | Outpatient (AMB) | payer OTHER, SELFPAY ==
--- NOTE | 2023-09-08 10:41 | A.OFFVIS_ITS ---
Intake VS Expanded 09/08/23 11:17 Height 5 ft 1 in Weight 197 lb 3 oz BMI 37.3 Body Fat % 45 Body Fat Mass 88.7 Fat Free Mass 108.5 Visceral Fat Rating 16 Body Water % 43.1 Body Water Mass 85 Basal Metabolic Rate/Score 1,397 Intake Visit Reasons: TV Pre Op LSG 09/21/23 Allergies No Known Allergies Allergy (Verified 09/08/23 10:41) Medication List - Last Reconciled 09/08/23 by Luis Felipe Moon MD aspirin (Adult Aspirin Regimen) 81 mg PO DAILY atorvastatin 40 mg PO BEDTIME chlorhexidine gluconate 4% (Hibiclens) 1 appl topical BID cholecalciferol (vitamin D3) 125 mcg PO DAILY 90 days cilostazol 100 mg PO BID clopidogrel (Plavix) 75 mg PO DAILY clotrimazole 1% 1 appl topical BID cyanocobalamin (vitamin B-12) 500 mcg PO DAILY 90 days fluticasone propion-salmeterol 250-50 mcg/dose (Advair Diskus) 1 inh inhalation BID gabapentin 300 mg PO BEDTIME ondansetron 4 mg PO Q12H pantoprazole 40 mg PO DAILY polyethylene glycol 3350 (Miralax) 17 grams PO DAILY sucralfate 10 mL PO BID vitamin A palmitate 3,000 mcg PO DAILY 90 days HPI TV Pre Op LSG 09/21/23 HPI Details Start time: 11.02am, End time: 11.32am ?I spent 25 minutes speaking with the patient on the phone plus an additional 5 minutes reviewing and updating records for a total of 30 minutes HPI Comments History of Present Illness Details Overall weight loss: 20.7lbs, or 9.5% TBWL Is doing 2 Premier shakes (1/2 scoop in 8oz almond milk), 2 Atkins protein bars and one meal (8 forks of protein and 8 forks of salad or vegetables) PFSH Medical History (Updated 09/08/23 @ 10:37 by Luis Felipe Moon MD) Plantar fasciitis Neuropathy COPD (chronic obstructive pulmonary disease) Peripheral vascular disease Atherosclerotic cardiovascular disease Surgical History Hx of colonoscopy Hx of tonsillectomy Hx of foot surgery Hx of carpal tunnel repair History of yvict-dbdjg-fgbsblz bypass Family History Mother COPD (chronic obstructive pulmonary disease) Hypertension Father Peripheral arterial disease Brother No problems noted. Brother Heart disease Sister No problems noted. Son No problems noted. Daughter No problems noted. Social History Alcohol intake: never Patient Tobacco Use Status: Former Tobacco user Assessment & Plan Assessment & Plan (1) Obesity: Code(s): E66.9 - Obesity, unspecified Plan: 1. Plan for lap sleeve gastrectomy including upper GI endoscopy. All tests has been completed and reviewed and the patient is cleared for the surgery. ?If diaphragmatic or ventral hernias are present at time of surgery, these will be repaired laparoscopically as well. Risks and complications were discussed in detail including possible conversion to an open procedure, anastomotic leak, bleeding requiring transfusion, small bowel obstruction, , DVT and pulmonary embolism, cardiac, or pulmonary complications, as intermediate accountant complications such as anastomotic ulcer, insufficient weight loss and vitamin deficiencies. I emphasized the importance of close follow-up, adherence to instructions and good communication. So far she has proven to be an excellent communicator and very compliant with all our directions accomplishing a great weight loss. I believe that she is an excellent candidate and she is ready. 2. Preop prescriptions were provided and explained the purpose of each one. Need to be purchased preop. Start Pantoprazole now as you get it from the pharmacy, 1 pill per day. Sucralfate and Zofran are for after surgery as needed. 3. Bowel prep: please do 7 packets ?of Miralax mixing each one with a an 8oz glass of water, crystal light, gatorade zero, or propel ?on 09/19/23 and the same amount on 09/20/23. Continue the protein shakes during? the bowel prep. 4. Needs to purchase 1oz medicine cups . 5. Needs to purchase Children's liquid Tylenol for postop pain control. 6. She needs to stop the Aspirin and the Cilostazol on 09/14/23. Needs to stop the Plavix and Gabapentin on 09/16/23. Avoid Motrin, Advil, Aleve, Ibuprofen, Naproxyn. Tylenol is OK. 7. She needs to purchase the Celebrate 4:1 protein shakes from the hospital's gift shop. 8. Will do basic preop blood work-up any day between Wednesday09/28/22 and Wednesday10/02/22 fasting for 12 hours and is scheduled to see the Anesthesiologist prior to the day of surgery. 9. Importance of adherence to postop folllow-up and recommendations was underscored and she understands that. 10. Stop food and bars as of tomorrow 09/09/23 and continue with 2 Premier protein shakes (HALF scoop EACH in 8oz almond milk) at 6am-8am and 9am-11am, and THREE more Premier protein shakes with ONE scoop in 8oz of almond milk at 12pm- 2pm, 3pm-5pm [id number] 11. No soups, broths or V8 12. The patient's?medical?history has been reviewed and they are considered low risk for post op DVT and therefore DVT prophylaxis is not considered necessary. Travel after surgery was reviewed. The patient has not disclosed any travel plans during the first 30 days after surgery and they have been advised that within the first 30 days after surgery any bus, plane, train or car travel over 2 hours in duration is contraindicated due to the possibility of developing blood clots from immobility. Any travel, needs to include periods of ambulation of 10 minutes in duration every 2 hours.? Patient was instructed to discuss any plans for travel during this period with their bariatric surgeon.? 13. Please take at the day of surgery the following medications: NONE that day 14. Absolutely no smoking or vaping, or marijuana until the surgery and for at least the first 4 weeks. Only nicotine patches are allowed. 15. Send me weight measurements on Fridays and then on Wednesday09/21/23 the day of surgery before you go to the hospital. 16. Avoid any steroids by mouth for any reason. Let me know if someone prescribes them to you (2) BMI 37.0-37.9, adult: Code(s): Z68.37 - Body mass index [BMI] 37.0-37.9, adult Orders: Orders TSH reflex Free T4 Today E66.9 - Obesity, unspecified, E78.00 - Pure hypercholesterolemia, unspecified, Z68.37 - Body mass index [BMI] 37.0-37.9, cj lt Prothrombin Time INR Today E66.9 - Obesity, unspecified, E78.00 - Pure hypercholesterolemia, unspecified, Z68.37 - Body mass index [BMI] 37.0-37.9, adult Hemoglobin A1c Today E66.9 - Obesity, unspecified, E78.00 - Pure hypercholesterolemia, unspecified, Z68.37 - Body mass index [BMI] 37.0-37.9, adult Type and Screen Today E66.9 - Obesity, unspecified, E78.00 - Pure hypercholesterolemia, unspecified, Z68.37 - Body mass index [BMI] 37.0-37.9, adult Partial Thromboplastin Time Today E66.9 - Obesity, unspecified, E78.00 - Pure hypercholesterolemia, unspecified, Z68.37 - Body mass index [BMI] 37.0-37.9, adult Comprehensive Met. Panel Today E66.9 - Obesity, unspecified, E78.00 - Pure hypercholesterolemia, unspecified, Z68.37 - Body mass index [BMI] 37.0-37.9, adult Lipid Panel Today E66.9 - Obesity, unspecified, E78.00 - Pure hyp ercholesterolemia, unspecified, Z68.37 - Body mass index [BMI] 37.0-37.9, adult C Reactive Protein Today E66.9 - Obesity, unspecified, E78.00 - Pure hypercholesterolemia, unspecified, Z68.37 - Body mass index [BMI] 37.0-37.9, adult Complete Blood Count Auto Diff Today E66.9 - Obesity, unspecified, E78.00 - Pure hypercholesterolemia, unspecified, Z68.37 - Body mass index [BMI] 37.0-37.9, adult Insulin Today E66.9 - Obesity, unspecified, E78.00 - Pure hypercholesterolemia, unspecified, Z68.37 - Body mass index [BMI] 37.0-37.9, adult Medications: New pantoprazole 40 mg PO DAILY 30 tabs 2RF K21.9 - Gastro-esophageal reflux disease without esophagitis polyethylene glycol 3350 (Miralax) Mix each packet with 8oz of water, Crystal light, or Gatorade zero, or Propel and do 7 packets on 07/08/21 and another 7 packets on 07/09/21 17 grams PO DAILY 14 ea 0RF Z01.818 - Encounter for other preprocedural examination sucralfate 10 mL PO BID 400 mL 2RF K21.9 - Gastro-esophageal reflux disease without esophagitis ondansetron Only take one every 12 hours as needed if you have nausea 4 mg PO Q12H 20 tabs 0RF nausea and vomiting R11.0 - Nausea Telehealth Telehealth Location of provider rendering services: practice address Location of patient: address on file Patient Identification confirmed using: Name, : Yes Telehealth method: voice only Patient verbally consented to treatment: Yes Patient verbally consented to billing insurance company: Yes Patient informed of any privacy concerns related to visit: Yes Minutes spent on Phone/Video with Pt.: 30 Coding Level of Care Code Tele Est Pt Level 4 (27566) Diagnoses Obesity E66.9 BMI 37.0-37.9, adult Z68.37 Time Spent (min) 30
[2023-09-08 11:17] VITALS: BMI 37.3
== END 2023-09-08 11:33 | disposition home or self-care (01) ==
LOC: HO.HBS 08:12
PROVIDERS: PCP Internal Medicine; Visit Provider Surgery
DX: E66.9 Obesity, unspecified (principal); Z68.37 Body mass index [BMI] 37.0-37.9, adult
CPT/HCPCS: 99214

== ENCOUNTER → 2023-09-08 08:12 | Outpatient (BNVA) | payer OTHER, SELFPAY | PROVIDERS: PCP Internal Medicine; Visit Provider Surgery ==

== ENCOUNTER 2023-09-13 08:40 | Outpatient (REF) | payer OTHER, SELFPAY ==
[2023-09-13 09:12] LABS: MANUAL DIFF FLAG NO
[2023-09-13 10:03] LABS: Basophils Percent Auto 0.6 % (0-2); Eosinophils Percent Auto 0.4 % (0-4); Estimated Average Glucose 123 mg/dL; Hematocrit 42.9 % (37.0-47.0); Hemoglobin 13.9 g/dl (12.0-16.0); Hemoglobin A1C 149.9272 umol/L; Hemoglobin A1c % 5.9 % (<6.0); Imm Gran Abs Auto 0.01 X10*3/uL (0.00-0.03); Imm Gran Pct Auto 0.1 % (0.0-0.4); Lymphocytes Absolute Auto 2.2 X10*3/uL (1.2-4.9); Mean Corpuscular HGB Conc 32.4 g/dl (31.0-35.0); Mean Corpuscular Hemoglobin 29.8 pg (27.0-33.0); Mean Corpuscular Volume 91.9 fL (80.0-98.0); Mean Platelet Volume 10.4 fL (9.4-12.3); Monocytes Absolute Auto 0.5 X10*3/uL (0.1-1.2); Monocytes Percent Auto 7.1 % (2-11); Neutrophils Percent Auto 58.8 % (45-73); Platelet Count 359 X10*3/uL (160-400); Red Blood Count 4.67 X10*6/uL (4.20-5.50); Red Cell Distribution Width 12.4 % (11.0-16.0); White Blood Count 6.8 X10*3/uL (4.8-10.8)
[2023-09-13 10:06] LABS: INTERNATIONAL NORM RATIO 1.5 (0.9-1.1)
[2023-09-13 10:09] LABS: Partial Thromboplastin Time 47.4 SEC (26.0-36.4)
[2023-09-13 10:29] LABS: Alanine Aminotransferase 13 U/L (0-31); Albumin Level 4.3 g/dL (3.5-5.0); Alkaline Phosphatase 79 U/L (39-117); Anion Gap 11 (12-20); Aspartate Amino Transferase 14 U/L (5-31); Bilirubin Total 0.8 mg/dL (0.0-1.0); Blood Urea Nitrogen 13 mg/dL (9-16); C Reactive Protein 0.17 mg/dL (< or = 0.50); Calcium 9.5 mg/dL (8.4-10.2); Carbon Dioxide 30 mmol/L (22-29); Chloride 105 mmol/L (96-108); Cholesterol 144 mg/dL (<200); Estimated Glomerular Filt Rate > 60; Glucose Random 92 mg/dL (60-115); HDL Cholesterol 40 mg/dL (>40); LDL Cholesterol Calculated 87 mg/dL (<100); Potassium 4.2 mmol/L (3.3-5.1); Sodium 142 mmol/L (135-145); Triglycerides 89 mg/dL (<150)
[2023-09-13 10:49] LABS: Insulin 13 uU/mL (2-29)
== END 2023-09-13 08:41 | disposition home or self-care (01) ==
LOC: HO.LAB 08:40
PROVIDERS: PCP Internal Medicine; Visit Provider Surgery
DX: E66.9 Obesity, unspecified (principal); E78.00 Pure hypercholesterolemia, unspecified; Z68.37 Body mass index [BMI] 37.0-37.9, adult
CPT/HCPCS: 36415; 80053; 80061; 83036; 83525; 84443; 85025; 85610; 85730; 86140

== ENCOUNTER 2023-09-21 06:27 | Inpatient (IN) | payer OTHER, SELFPAY ==
[2023-09-14 10:17] VITALS: BMI 37.2
--- NOTE | 2023-09-18 20:57 | MHC.SHP ---
Pre-Procedural Eval Section A Date of Service: 09/18/23 The patient is an INPATIENT: Yes The History & Physical has been completed within 30 days and I have reviewed it.: Yes Section B Chief Complaint: Obesity, unspecified Relevant Family History (Specify if Yes): No Relevant Social History: None Present Medications: None Medical History: No relevant PMH History of Previous Operations: No relevant previous surgery Allergies: Allergies Allergy/AdvReac Type Severity Reaction Status Date / Time No Known Allergies Allergy Verified 09/08/23 10:41 Review of Systems Sugical H&P ROS: Negative: Constitution, Cardiovascular, Respiratory, Neurological, Psychiatric, Hem-Onc, Allergic/Immunologic, Gastrointestinal, Genitourinary, Musculoskeletal, Integumentary, Endocrine and Eyes/Ears/Nose/Throat Exam Surgical H&P Exam: Normal: HEENT, Normal: Heart, Normal: Lungs, Normal: Extremities, Normal: Abdomen, Normal: Skin and Normal: Neurological Plan Diagnosis/Plan: Unchanged I have reviewed the history and physical and performed a pertinent physical examination on my patient. No changes have occurred unless specified. Time Spent With Patient Time: Total time managing care of this patient today ____ minutes.
--- NOTE | 2023-09-20 10:01 | HO.ANESPROP2 ---
Documented by User: Chary Beckman NP 09/20/23 10:06 HPI - Anesthesia Eval Consult details Narrative: 63yo F for Gastrectomy Sleeve,EDG,poss diaphragmatic hernia,poss ventral hernia,poss open PMFSH Active Problems Active Problems: All Active Problems (Updated 09/14/23 @ 10:17 by Yanna Garcia RN) BMI 37.0-37.9, adult (Acute) BMI 38.0-38.9,adult (Acute) Obesity (Acute) PAC (premature atrial contraction) (Acute) Preoperative cardiovascular examination (Acute) Obesity (BMI 30-39.9) (Acute) Abnormal EKG (Acute) Adjustment disorder, unspecified (Acute) Claudication of both lower extremities (Acute) Hypercholesterolemia (Acute) Morbid obesity (Acute) Plantar fasciitis (Acute) Neuropathy (Acute) COPD (chronic obstructive pulmonary disease) (Acute) Peripheral vascular disease (Acute) Atherosclerotic cardiovascular disease (Acute) Past Medical History Medical History PAC (premature atrial contraction) Plantar fasciitis Neuropathy COPD (chronic obstructive pulmonary disease) Peripheral vascular disease Atherosclerotic cardiovascular disease Family History Family History Mother COPD (chronic obstructive pulmonary disease) Hypertension Father Peripheral arterial disease Brother No problems noted. Brother Heart disease Sister No problems noted. Son No problems noted. Daughter No problems noted. Surgical History Surgical History Hx of cardiac catheterization Hx of colonoscopy Hx of tonsillectomy Hx of foot surgery Hx of carpal tunnel repair History of awbae-xfird-ptfryzl bypass Social History Are you a primary memory care program director to a significant other at home: No Do you presently have visiting nurse or other home services: No Alcohol intake: never Patient Tobacco Use Status: Former Tobacco user Quit Date: 2018 Tobacco use type: Cigarette Use of substances other than those prescribed or required for medical reasons: No Have you been hit, kicked, punched, or otherwise hurt by someone within the past year? If so, by whom?: No Are you DNR?: No Advance Directives: No (states is primary contact) Advance Directives Information Provided: Yes (brochure mailed) Advance Directives on File: No Recently lost weight without trying: No Eating poorly because of decreased appetite: No Nutrition Risks: No Nutritional Risk Poor oral hygiene: No (upper full denture) Meds Allergies Allergy/AdvReac Type Severity Reaction Status Date / Time No Known Allergies Allergy Verified 09/08/23 10:41 Home Medications Medication Instructions Recorded Confirmed Last Taken Type aspirin 81 mg tablet,delayed 81 mg PO DAILY 04/02/23 09/14/23 Unknown History release (Adult Aspirin Regimen) atorvastatin 40 mg tablet 40 mg PO BEDTIME 04/02/23 09/14/23 Unknown History chlorhexidine gluconate 4 % 1 appl topical BID 04/02/23 09/14/23 Unknown History topical liquid (Hibiclens) cilostazol 100 mg tablet 100 mg PO BID 04/02/23 09/14/23 Unknown History clotrimazole 1 % topical cream 1 appl topical BID 04/02/23 09/14/23 Unknown History fluticasone 250 mcg-salmeterol 50 1 inh inhalation BID 04/02/23 09/14/23 09/21/23 History mcg/dose blistr powdr for inhalation (Advair Diskus) gabapentin 300 mg capsule 300 mg PO BEDTIME 05/31/23 09/14/23 Unknown History Exam Height,Weight and Vital Signs: Height 5 ft 1 in Weight 89.358 kg Pertinent Lab Results Pertinent Lab Results: Laboratory Tests 09/13/23 09:05 Blood Type O Positive Antibody Screen NEGATIVE Laboratory Tests 09/13/23 09:10 WBC 6.8 Hgb 13.9 Hct 42.9 Plt Count 359 Sodium 142 Potassium 4.2 Chloride 105 Carbon Dioxide 30 H BUN 13 Creatinine 0.79 Narrative Narrative: EKG 04/2023 Vent. Rate : 056 BPM Atrial Rate : 056 BPM P-R Int : 144 ms QRS Dur : 088 ms QT Int : 432 ms P-R-T Axes : 067 029 052 degrees QTc Int : 416 ms Sinus bradycardia with Premature supraventricular complexes Otherwise normal ECG No previous ECGs available 3 Day Holter Conclusion: 1. Patient was monitored for total period of 2 days and 23 hours 2. Baseline was normal sinus with average heart of 86 beats per minute 3. No significant pauses noted 4. Frequent PACs noted with total burden of 15% 5. Patient marked the counter 2 times with associated symptoms of heart racing correlated with PACs ECHO 07/2023 Conclusions: - 1. Hyperdynamic LV ejection fraction greater than 70% with grade 1 diastolic dysfunction 2. Normal cardiac valvular Dopplers 3. No gross pericardial effusion Cardiac cath 2018 No obstructive CAD Assessment and Plan Assessment Anesthesia Assessment: Chart Reviewed Documented by User: Drake Rocha MD 09/21/23 07:18 PMFSH Past Medical History Medical History PAC (premature atrial contraction) Plantar fasciitis Neuropathy COPD (chronic obstructive pulmonary disease) Peripheral vascular disease Atherosclerotic cardiovascular disease Family History Family History Mother COPD (chronic obstructive pulmonary disease) Hypertension Father Peripheral arterial disease Brother No problems noted. Brother Heart disease Sister No problems noted. Son No problems noted. Daughter No problems noted. Family history of problems with anesthesia: No Surgical History Surgical History Hx of cardiac catheterization Hx of colonoscopy Hx of tonsillectomy Hx of foot surgery Hx of carpal tunnel repair History of xxklt-vvckp-fdgnhei bypass History of Problems with Anesthesia: No Social History Are you a primary memory care program director to a significant other at home: No Do you presently have visiting nurse or other home services: No Alcohol intake: never Patient Tobacco Use Status: Former Tobacco user Quit Date: 2018 Tobacco use type: Cigarette Use of substances other than those prescribed or required for medical reasons: No Have you been hit, kicked, punched, or otherwise hurt by someone within the past year? If so, by whom?: No Are you DNR?: No Advance Directives: No (states is primary contact) Advance Directives Information Provided: Yes (brochure mailed) Advance Directives on File: No Recently lost weight without trying: No Eating poorly because of decreased appetite: No Nutrition Risks: No Nutritional Risk Poor oral hygiene: No (upper full denture) Meds Allergies Allergy/AdvReac Type Severity Reaction Status Date / Time No Known Allergies Allergy Verified 09/08/23 10:41 Home Medications Medication Instructions Recorded Confirmed Last Taken Type aspirin 81 mg tablet,delayed 81 mg PO DAILY 04/02/23 09/14/23 Unknown History release (Adult Aspirin Regimen) atorvastatin 40 mg tablet 40 mg PO BEDTIME 04/02/23 09/14/23 Unknown History chlorhexidine gluconate 4 % 1 appl topical BID 04/02/23 09/14/23 Unknown History topical liquid (Hibiclens) cilostazol 100 mg tablet 100 mg PO BID 04/02/23 09/14/23 Unknown History clotrimazole 1 % topical cream 1 appl topical BID 04/02/23 09/14/23 Unknown History fluticasone 250 mcg-salmeterol 50 1 inh inhalation BID 04/02/23 09/14/23 09/21/23 History mcg/dose blistr powdr for inhalation (Advair Diskus) gabapentin 300 mg capsule 300 mg PO BEDTIME 05/31/23 09/14/23 Unknown History Exam Airway Mallampati Class: III TM Dist: >3cm Neck ROM: Full Denture: Upper Loose/Missing/Broken Teeth: Yes Heart: rrr+[id number] with PAC's Lungs: cta b/l Assessment and Plan Assessment Anesthesia Assessment: Anesthesia Plan Discussed Final Anesthetic Review Family History of Problems with Anesthesia: No History of Problems with Anesthesia: No NPO: Yes ASA Class: III Final Preanesthetic Review: No Changes in Pt Med Stat, Meds/Allgs Chart Reviewed, Consent Obtained/Reviewed and Anes Risks/Benef Reviewed Patient Risk: Intermediate Procedure Risk: Intermediate Assessment/Block/Sedation in SS: Assess/Block/Sedation-SS Anesthetic Plan Anesthetic Plan: GA and Agree w/ Assess. and Plan Disposition: Standard PACU
[2023-09-21] VITALS (12 sets, daily range): BP systolic 123–184; BP diastolic 39–90; PULSE 56–75; RESP 15–18; TEMP 36.2–36.7; O2SAT 91–97; BMI 36.3; BMI 39.3
[2023-09-21] MEDS: Aprepitant 32 MG/4.4 ML VIAL IVPUSH (07:19)
[2023-09-21] MEDS: Lactated Ringers 1,000 ML 999 ML IV (07:19)
--- NOTE | 2023-09-21 07:28 | PHA.MEDREC ---
Pharmacy Consult ? Medication Reconciliation Pharmacy has reviewed the medication reconciliation completed by FUNMI
--- NOTE | 2023-09-21 08:10 | P.BOP_ITS ---
Brief Operative Note Date of Service: 09/21/23 Pre-op diagnosis: Severe obesity with comorbidities (see below) Post-op diagnosis: same Procedure: INITIAL PATIENT BMI ON PRESENTATION AT OUR OFFICE: 41.2 kg/m2 LAST BMI BEFORE SURGERY: 37 kg/m2 COMORBIDITIES: peripheral vascular disease, hyperlipidemia, COPD, neuropathy, presbyesophagus, CAD ?The patient presented to the Weight Management Program with significant obesity that was negatively impacting the patient's comorbidities as listed above.? The program is a phased program with a special focus on preoperative medical weight management to promote substantial weight loss and prepare the patients for the second phase of the program: bariatric surgery. The patient participated in an intensive weekly lifestyle ?intervention and exercise program during which the patient ?has lost between the initial office visit and the last preoperative visit 21.8lbs, or 10% of initial actual body weight. It was deemed appropriate for the patient to now have bariatric surgery. In light of the current Covid-19 pandemic and the well documented strong association of obesity and increased risk of worse outcomes if infected with Covid-19 (REFERENCES: https://pubmed.ncbi.nlm.nih.gov/39828091/ ,? https://pubmed.ncbi.nlm.nih.gov/64331388/ ), any delay in undergoing bariatric surgery may lead to the patient's worsening health condition and increased?risk of more severe Covid-19 disease if infected. In addition a recent?study from [facility] published in [facility] on 10/20/2021 ([email or web address]) found that, among patients with obesity, substantial weight loss achieved with surgery was associated with improved outcomes of COVID-19 infection. The findings suggest that obesity can be a modifiable risk factor for the severity of COVID-19 infection. In addition, the patient met the BMI-criteria for bariatric surgery based on the BMI on initial presentation. The patient should not be penalized for achieving such weight loss because ?it is not sustainable long-term without surgical intervention and it was achieved in preparation for bariatric surgery ?under my direction and based on my published research ([email or web address]).[email or web address] and? https://www.soard.org/article/[email or web address](48)46056-X/pdf ) ?that a 10% preoperative weight loss improves long-term weight loss after surgery and reduces perioperative complications.? Insurance carriers such as [facility] have endorsed my recommendations ?and have included in their policies criteria to include a 10% preoperative weight loss requirement. PROCEDURE: Esophago-gastroscopy laparoscopic sleeve gastrectomy and laparoscopic gastropexy INDICATIONS: This is a 63 year-old female who was electively scheduled for laparoscopic, possibly open sleeve gastrectomy. The risks and complications of the procedure were discussed with the patient in advance, particularly the possibility of ; pulmonary embolism; staple line leak; bleeding; GERD; cardiac, pulmonary, or renal complications; as well as long-term problems such as insufficient weight loss, vitamin deficiency, strictures, or ulcers. The patient understood all the risks, and was in agreement to proceed with surgery. DESCRIPTION OF PROCEDURE: After informed consent was obtained from the patient, the patient was given preoperative antibiotics, and was transferred to the operating room. After successful induction of general anesthesia, pneumatic compression devices were placed on both lower extremities. An upper endoscopy was performed next. The oropharynx and esophagus appeared to be within normal limits. There was a diaphragmatic hernia present of moderate size consistent with the findings of the preoperative upper GI. The stomach was entered. Then after all fluid and air were suctioned and the stomach was fully decompressed, the scope was withdrawn and secured in the mid esophagus. The patient was then prepped and draped in the usual sterile manner, and abdominal access was established at the right upper quadrant with the Ha technique. A 12 mm blunt port was inserted, and the abdomen was insufflated with CO2 to a pressure of 15 mmHg. Under direct visualization, additional ports were placed, specifically two 5 mm Versi-step ports to the left upper quadrant, and a 5 mm Versi-Step port to the right upper quadrant. 1% lidocaine plain was used to infiltrate all port sites as well as all fascia defects. Using the EndoClose suture passer device, I placed a #1 Polysorb tie across the falciform ligament in order to retract it up against the abdominal wall and prevent injury of the ligament with our instruments during the procedure. Following that, the patient was placed in a steep reverse Trendelenburg position. An additional 5 mm port was placed to the right flank for the Mediflex retractor that was used to retract the left lobe of the liver. The gastro-esophageal fat pad was opened with the ultrasonic device (Thunderbeat, Olympus) and the anterior esophagus and hiatus were exposed. The angle of His was opened with the ultrasonic device the fundus of the stomach from any diaphragmatic and splenic attachments. I then opened the gastrocolic ligament between the transverse colon and the greater curvature of the stomach with the ultrasonic device to enter the lesser sac and facilitate the ligation of the short gastric vessels. I started at a mid-point along the greater curvature and using the Thunderbeat, all short gastric vessels were divided all the way to the angle of His until the left fitz was completely dissected at its entirety. I then divided the gastro-colic ligament distally to a distance of about 3-4 cm proximal to the pylorus. The stomach was then divided transversely with one Endo MIKAYLA-45 purple and five MIKAYLA-60 articulating purple loads using the SIGNIA stapler and loads. Every effort was made that the gastric sleeve had a tubular shape and an even caliber throughout. Once the sleeve resection was completed, the staple line of the gastric sleeve was reinforced with Hemoclips. The resected stomach was retrieved without difficulty from the Ha port. A gastropexy was then performed in order to prevent postoperative GERD and partial gastric volvulus. Several interrupted 2.0 Surgidac sutures were placed between the sleeve's staple line and the previously divided greater omentum and gastro-colic ligament using the Endo-Stitch device. ?An upper endoscopy was performed. There was no narrowing at the GE junction. The scope was easily advanced all the way to the pylorus which was clearly visualized. There was no narrowing anywhere and the sleeve's caliber was even throughout. The sleeve's staple line was inspected and there was no evidence of ischemia, bleeding or dehiscence. At that point the gastroscope was withdrawn from the patient?s mouth while we were decompressing the bowel and the stomach from any remaining air. I looked into the lesser sac to see how the sleeve was situating and it was situating well. There was no bleeding from the staple line, spleen, or short gastric vessels. The Mediflex retractor was removed, and the undersurface of the liver was inspected and there was no bleeding. The patient was placed in supine position. I closed the fascial defect of the 12 mm port site with a figure of eight #1 Polysorb suture. Then 30cc Ropivacaine plain with 10 mg of Dexamethasone were used to infiltrate the fascial closure as well as all skin incisions. A total of 6ml Zynrelef was applied in the Ha wound. At this point, the abdomen was deflated, all ports were removed under direct vision, and no bleeding was noted from any of the port sites. The skin incisions were irrigated with saline and were closed with 4-0 absorbable monofilament sutures. Steri-Strips and OpSites were used to cover all incisions. The patient was extubated and was transferred in stable condition to the recovery room for further care. I was present and performed all burch parts of the procedure. Mr. Mera was the first leveler. There were no residents to assist with this case. Chris Moon MD, PhD, FACS Surgeon: Luis Felipe Moon MD Anesthesia: GETA, local and other (TAP block and 6ml Zynrelef) Was an Job Press Operator used for this Procedure?: No Job Press Operator: Petr Mera Estimated blood loss (mL): 10 IV fluids (mL): 2,500 Urine output (mL): 0 (No Osman to record output) Pathology: other (Stomach) Condition: stable Disposition: PACU
--- NOTE | 2023-09-21 08:14 | P.PNGS_ITS ---
Subjective Subjective Date of Service: 09/22/23 Interval history: Feels well. Mild incisional pain. She is tolerating phase 1 bariatric diet Physical Exam 2 Vital Signs: Vital Signs: Last Vital Signs Temp 98.1 F 09/21/23 07:19 Pulse 74 09/21/23 07:19 Resp 16 09/21/23 07:19 BP 141/56 H 09/21/23 07:19 Pulse Ox 93 09/21/23 07:19 O2 Del Method Room Air 09/21/23 07:19 BMI result Body Mass Index 36.3 GI: Inspection: Yes normal to inspection, Yes incision (clean, dry and intact) and Yes obesity Palpation (GI): Soft to palpation Extrem: Right lower extremity: normal to inspection (no calf tenderness) L eft lower extremity: normal to inspection (no calf tenderness) Objective Data Active Medications Albuterol Sulfate (Albuterol Sulfate (0.083%) 2.5 Mg/3 Ml Vial.Neb) 2.5 mg INHALE ONCE PRN PRN Reason: Shortness of Breath/Wheezing Fentanyl (Fentanyl Citrate/Pf 100 Mcg/2 Ml Vial) 50 mcg IVPUSH Q5M PRN; Protocol PRN Reason: Pain, Severe (Pain Scale 7-10) Hydromorphone HCl (Hydromorphone Hcl 0.5 Mg/0.5 Ml Syringe) 0.5 mg IVPUSH Q5M PRN; Protocol PRN Reason: Pain, Severe (Pain Scale 7-10) Lactated Ringer's (Lr) 1,000 mls @ 100 mls/hr IVCONT .Q10H [facility] Lactated Ringer's (Lr) 1,000 mls @ 999 mls/hr IV .Q1H1M [facility] Stop: 09/21/23 08:30 Last Admin: 09/21/23 07:19 Dose: 999 mls/hr Documented By: LORETTA Promethazine HCl 6.25 mg/ (Sodium Chloride) 50.25 mls @ 201 mls/hr IV ONCE PRN PRN Reason: Nausea and Vomiting Ondansetron HCl (Ondansetron Hcl 4 Mg/2 Ml Vial) 4 mg IVPUSH ONCE PRN PRN Reason: Nausea and Vomiting Labs 09/22/23 06:01 09/22/23 06:01 Procedures Date of Service Date of Service: 09/22/23 Progress Note: A&P Assessment and plan (1) Obesity: Status: Acute Assessment and Plan: s/p laparoscopic sleeve gastrectomy and gastropexy Doing well Will check am labs and if OK the patient will be discharged home (2) BMI 37.0-37.9, adult: Status: Acute (3) Hypercholesterolemia: Status: Acute (4) Plantar fasciitis: Status: Acute (5) Neuropathy: Status: Acute (6) COPD (chronic obstructive pulmonary disease): Status: Acute (7) Peripheral vascular disease: Status: Acute (8) Atherosclerotic cardiovascular disease: Status: Acute (9) Presbyesophagus: Status: Acute (10) S/P laparoscopic sleeve gastrectomy: Status: Acute Time Spent With Patient Time: Total time managing care of this patient today ____ minutes. Quality Stroke Does the patient have a stroke diagnosis?: No VTE Prior VTE?: No VTE Risk Level:: Surgical - moderate VTE Device Contraindication: N/A - Device Ordered VTE Drug Contraindication: Treatment Not Indicated
[2023-09-21] MEDS: Lactated Ringers 1,000 ML 100 ML IVCONT ×3 (08:35→22:25)
--- NOTE | 2023-09-21 11:29 | P.DS_ITS ---
DS: Providers Provider Date of Service: 09/22/23 Date of admission: 09/21/23 06:27 Primary care physician: Megan Willson MD DS: Diagnosis Discharge Diagnosis (1) Obesity: Status: Acute (2) BMI 37.0-37.9, adult: Status: Acute (3) Hypercholesterolemia: Status: Acute (4) Plantar fasciitis: Status: Acute (5) Neuropathy: Status: Acute (6) COPD (chronic obstructive pulmonary disease): Status: Acute (7) Peripheral vascular disease: Status: Acute (8) Atherosclerotic cardiovascular disease: Status: Acute (9) Presbyesophagus: Status: Acute (10) S/P laparoscopic sleeve gastrectomy: Status: Acute DS: Summary Hospital Course Hospital Course: ADMITTING DIAGNOSIS: obesity, HLD, CAD, COPD, PAC, claudication, PVD ? DISCHARGE DIAGNOSIS: same, s/p laparoscopic sleeve gastrectomy ? PAST SURGICAL HISTORY: aorto-iliac fem bypass ? PROCEDURE: upper endoscopy, laparoscopic sleeve gastrectomy ? DISCHARGE SUMMARY: ? History of Present Illness: ? The patient is a?63 year-old woman with a BMI of?41 kg/m2 and associated co- morbidities as described above. The patient had extensive work-up,lost?20.4 lbs preoperatively and was electively scheduled for laparoscopic, possible open sleeve gastrectomy and gastropexy. Risks and complications of the surgery were discussed with the patient in advance, particularly the possibility of , pulmonary embolism, anastomotic leak, bleeding, bowel injury, GERD, cardiac, renal or pulmonary complications. The patient understood all the risks and was in agreement with the surgical plan. ? Hospital Course: ? The patient underwent an uneventful laparoscopic sleeve gastrectomy with gastropexy on the day of admission. Postoperatively, the patient was transferred to the surgical floor. The patient received IV Acetaminophen and IV dilaudid for pain control. Patient was started on bariatric phase 1 diet POD #0. On postoperative day one, the patient was feeling well without nausea, vomiting, fevers, or tachycardia. The patient had some mild incisional pain and the abdomen was soft. ? On the morning of postoperative day one, the patient was continued on 1 ounce of water or ice every half hour. During the day, the patient did fairly well, having some incisional pain, but able to ambulate adequately and to tolerate liquids well. ? Since the patient is doing well, we decided that the patient was ready to be discharged. The patient was given instructions to follow-up with me next week and to call my office for any fever over 101, persistent abdominal pain, nausea, vomiting, GERD, symptoms of DVT such as calf tenderness, or leg swelling, or pulmonary embolism such as chest pain or shortness of breath. The patient was also instructed to drink 40-60 ounces of liquids per day using the 1-ounce cups. The patient had been given prescriptions for Tylenol for pain, Zofran prn for nausea, and pantoprazole and carafate previously. The patient was encouraged to ambulate and use the incentive spirometer. The patient was allowed to shower, but no baths, and encouraged to stay active at home. All of these instructions were given to the patient personally. All questions were answered and the patient understood all instructions, the instructions were also given to the patient in print. Time Attestation Discharge coordination time: Less than 30 minutes Quality: Safe Use of Opioids Does Pt have an Active Cancer Diagnosis on the Problem List?: No Quality: Stroke Does the patient have a stroke diagnosis?: No Physical Exam Vital Signs: Vital Signs: Last Vital Signs Temp 98.1 F 09/21/23 07:19 Pulse 74 09/21/23 07:19 Resp 16 09/21/23 07:19 BP 141/56 H 09/21/23 07:19 Pulse Ox 93 09/21/23 07:19 O2 Del Method Room Air 09/21/23 07:19 BMI result Body Mass Index 36.3 DS: Data Data Completed and Pending Pending studies at discharge: Pending at discharge 09/21/23 10:24 Surgical [PTH] Routine Discharge Plan Discharge Anticipated Discharge Date/Time: 09/22/23 10:00 Patient Disposition: Home, Self-Care Discharge Diagnosis: s/p laparoscopic sleeve gastrectomy Referrals: Megan Willson MD [Primary Care Provider] - 1 Week Discharge Medications: Continued fluticasone propion-salmeterol [Advair Diskus] 250-50 mcg/dose blister with device 1 inh inhalation BID atorvastatin 40 mg tablet 40 mg PO BEDTIME chlorhexidine gluconate [Hibiclens] 4 % liquid 1 appl topical BID clotrimazole 1 % cream 1 appl topical BID pantoprazole 40 mg tablet,delayed release (DR/EC) 40 mg PO DAILY Qty: 30 2RF sucralfate 100 mg/mL suspension 10 ml PO BID Qty: 400 2RF ondansetron 4 mg tablet,disintegrating 4 mg PO Q12H Qty: 20 0RF Rx Instructions: Only take one every 12 hours as needed if you have nausea Held clopidogrel 75 mg tablet 75 mg DAILY Hold Instructions: Resume on 09/29/23. gabapentin 300 mg capsule 300 mg PO BEDTIME Hold Instructions: Resume on 09/29/23. aspirin [Adult Aspirin Regimen] 81 mg tablet,delayed release (DR/EC) 81 mg PO DAILY Hold Instructions: Resume on 09/29/23. cilostazol 100 mg tablet 100 mg PO BID Hold Instructions: Resume on 09/29/23. Discontinued cholecalciferol (vitamin D3) 125 mcg (5,000 unit) capsule 125 mcg PO DAILY 90 Days Qty: 90 1RF cyanocobalamin (vitamin B-12) 500 mcg tablet 500 mcg PO DAILY 90 Days Qty: 90 0RF vitamin A palmitate 3,000 mcg (10,000 unit) capsule 3,000 mcg PO DAILY 90 Days Qty: 90 0RF polyethylene glycol 3350 [Miralax] 17 gram powder in packet 17 g PO DAILY Qty: 14 0RF Rx Instructions: Mix each packet with 8oz of water, Crystal light, or Gatorade zero, or Propel and do 7 packets on 07/08/21 and another 7 packets on 07/09/21 Discharge Orders: Discharge Order (Routine); Ordered 09/22/23 Ordered By: Luis Felipe Moon Activity on Discharge: No heavy lifting Stand Alone Forms: Patient Portal Discharge page Care Plan Goals: weight loss Health Concerns: obesity Plan of Treatment: No tub baths, sex or returning to work until discussed at first post op appointment. No exercise, alcohol, tobacco or illegal drug use. Continue to use incentive spirometer hourly while awake. Walk in home for 5- 10 minutes every 2 hours during the first week. Follow all instructions in the bariatric handbook and call with any questions.Discharge Instructions 1. Please call your doctor or come back to the emergency room should any new symptoms arise. 2. You will receive a courtesy call from [facility] 24-48 hours after discharge. 3. Activity: abstain from alcohol, practice limited stair climbing, no bending, no driving, no exercise, no illicit substances, no lifting, no sex, no tub bath, no work. 4. Diet: continue as discussed with Dr. Moon. 5. Dressing Change/Wound Care: Your incision is covered by clear bandages and guaze underneath. If the area is tender, you may apply an ice pack for short intervals (no more than 20 minutes on, followed by at least 20 minutes off). Do not apply heat. Do not use creams, lotions, or topical antibiotics unless instructed to do so by your surgeon. These can cause infection or allergic reaction. 6. Call your doctor if: - Your temperature exceeds 101.5 F - You experience excessive pain or swelling - You have an unexpected reaction to medication - You have excessive bleeding - You experience continued vomiting/nausea - Your incision begins to separate - Your incision shows signs of infection such as increased redness, swelling, excessive pain, heat, or drainage (light blood or clear fluid is normal) 7. General instructions: No lifting greater than 5 lbs for 1 week and not more than 20lbs the next 3?weeks. No driving until seen at the office in 5-7 days after surgery. If you do not move your bowels in the next 2 days, please tell?Dr. Moon. Please walk around your home every hour or two to prevent blood clots from forming in your legs. You do not need to wake from sleeping to walk. Please sleep in a bed or couch to prevent kinking at the hips and knees. Please take your incentive spirometer (your lung air traffic control equipment repairer) home with you and use it for the next few days to prevent pneumonia. You may shower, no hot tubs, baths or swimming pools.?Please follow the post op diet instructions you are?given by Dr Moon? and text me daily at 5-6pm for an update.?If you have any issues or concerns or questions please communicate this to him via text.? The Celebrate shakes have all of the bariatric vitamins you need if you consume these shakes. If you are drinking other protein shakes, you will need to purchase the Celebrate multivitamins and calcium that are available in the hospital gift shop on the first floor of the main hospital.??Do not take anything without first discussing with Dr Moon. Please make sure you are consuming at least 40 ounces of fluids per day starting the?day AFTER your dis charge from the hospital. Always drink 1-2 ml per minute using the 5ml?syringe. If you drink faster you may experience?bloating,?gas pain, burping, nausea or heartburn. In that case please slow down your pace and use the syringe to?understand better the?proper?pace and volume of drinking. Do not hesitate to contact the office with any questions at . The patient's medical history has been reviewed and they are considered low risk for post op DVT and therefore DVT prophylaxis is not considered necessary. Travel after surgery was reviewed. The patient has not disclosed any travel plans during the first 30 days after surgery and they have been advised that within the first 30 days after surgery any bus, plane, train or car travel over 2 hours in duration is contraindicated due to the possibility of developing blood clots from immobility. Any travel, needs to include periods of ambulation of 10 minutes in duration every 2 hours.? The patient was instructed to discuss any plans for travel during this period with their bariatric surgeon. Assessment: stable s/p laparocopic sleeve gastrectomy Discharge Date/Time: 09/22/23 09:50
[2023-09-21 11:56] LABS: Hematocrit 41.6 % (37.0-47.0); Hemoglobin 13.6 g/dl (12.0-16.0)
[2023-09-21 12:09] LABS: Anion Gap 11 (12-20); Blood Urea Nitrogen 15 mg/dL (9-16); Carbon Dioxide 27 mmol/L (22-29); Chloride 106 mmol/L (96-108); Creatinine Clr Calc Pharmacy 65.5; Estimated Glomerular Filt Rate > 60; Glucose Random 134 mg/dL (60-115); Potassium 4.3 mmol/L (3.3-5.1); Sodium 140 mmol/L (135-145)
[2023-09-21] MEDS: Acetaminophen 1,000 MG/100 ML PIGGYBACK 16.7 MG IV ×2 (13:17→19:24)
[2023-09-21] MEDS: ceFAZolin Sodium/Dextrose,Iso 2 GM/50 ML PIGGYBACK IV (14:19)
[2023-09-21] MEDS: Famotidine/PF 20 MG/2 ML VIAL IVPUSH (19:24)
[2023-09-21] MEDS: 0.9 % Sodium Chloride Flush 3 ML SYRINGE IVFLUSH (19:25)
--- NOTE | 2023-09-21 21:25 | PC.RT ---
Inhaler not on floor, pharmacy called
[2023-09-22] MEDS: Acetaminophen 1,000 MG/100 ML PIGGYBACK 16.7 MG IV ×2 (01:12→06:55)
[2023-09-22 02:58] VITALS: BP 131/66; PULSE 63; RESP 16; TEMP 36.4; O2SAT 93
[2023-09-22 06:21] LABS: MANUAL DIFF FLAG NO
[2023-09-22 06:37] LABS: Basophils Percent Auto 0.1 % (0-2); Hematocrit 34.6 % (37.0-47.0); Hemoglobin 11.7 g/dl (12.0-16.0); Imm Gran Abs Auto 0.07 X10*3/uL (0.00-0.03); Imm Gran Pct Auto 0.4 % (0.0-0.4); Lymphocytes Absolute Auto 1.7 X10*3/uL (1.2-4.9); Lymphocytes Percent Auto 9.2 % (20-40); Mean Corpuscular HGB Conc 33.8 g/dl (31.0-35.0); Mean Corpuscular Hemoglobin 30.4 pg (27.0-33.0); Mean Corpuscular Volume 89.9 fL (80.0-98.0); Mean Platelet Volume 10.3 fL (9.4-12.3); Monocytes Percent Auto 5.5 % (2-11); Neutrophils Absolute Auto 15.5 x10*3/uL (2.0-8.3); Neutrophils Percent Auto 84.8 % (45-73); Platelet Count 250 X10*3/uL (160-400); Red Blood Count 3.85 X10*6/uL (4.20-5.50); Red Cell Distribution Width 12.3 % (11.0-16.0); White Blood Count 18.2 X10*3/uL (4.8-10.8)
[2023-09-22 06:43] LABS: Anion Gap 11 (12-20); Blood Urea Nitrogen 13 mg/dL (9-16); Calcium 9.1 mg/dL (8.4-10.2); Carbon Dioxide 25 mmol/L (22-29); Chloride 108 mmol/L (96-108); Creatinine Clr Calc Pharmacy 85.1; Estimated Glomerular Filt Rate > 60; Glucose Random 114 mg/dL (60-115); Potassium 4.1 mmol/L (3.3-5.1); Sodium 140 mmol/L (135-145)
[2023-09-22] MEDS: Fluticasone/Vilanterol 100/25 BLST.W.DEV 1 PUFF INHALE (07:17)
[2023-09-22 07:19] VITALS: PULSE 63; RESP 16; O2SAT 93
[2023-09-22 07:30] VITALS: BP 137/62; PULSE 68; RESP 16; TEMP 36.6; O2SAT 92
[2023-09-22] MEDS: Famotidine/PF 20 MG/2 ML VIAL IVPUSH (07:41)
--- NOTE | 2023-09-22 08:33 | HO.POSTANES ---
Post Anesthesia Evaluation Post Anesthesia Evaluation Date of Service: 09/22/23 Vital Signs: Vital Signs Temp Pulse Resp BP Pulse Ox O2 Del Method 09/22/23 07:30 97.8 F 68 16 137/62 92 Room Air 09/22/23 07:19 63 16 09/22/23 02:58 97.6 F 63 16 131/66 93 Room Air 09/21/23 23:42 97.5 F 64 18 123/90 H 91 L Room Air Anesthesia: General Endotracheal-GETA Mental Status: Awake Pain Control: Satisfactory Nausea/Vomiting: None Hydration: Adequate Anesthesia-Related Issues: No Anes. Related Issues
--- NOTE | 2023-09-22 08:51 | MHC.CM.PN ---
pt dcd home no skilled servies
== END 2023-09-22 09:50 | disposition home or self-care (01) | DRG 403 ==
LOC: HO.SSSA 06:45 → HO.S3 12:04
PROVIDERS: Physician Assistant Surgical; Admitting Provider Surgery; PCP Internal Medicine; Visit Provider Surgery
PROC: 0DB64Z3 Excision of Stomach, Percutaneous Endoscopic Approach, Vertical (ICD-10-PCS; CPT 43845; principal; 2023-09-21 08:20)
DX: E66.01 Morbid (severe) obesity due to excess calories (principal); E78.00 Pure hypercholesterolemia, unspecified; G62.9 Polyneuropathy, unspecified; K22.89 Other specified disease of esophagus; K44.9 Diaphragmatic hernia without obstruction or gangrene; I25.10 Atherosclerotic heart disease of native coronary artery without angina pectoris; I73.9 Peripheral vascular disease, unspecified; J44.9 Chronic obstructive pulmonary disease, unspecified; Z68.37 Body mass index [BMI] 37.0-37.9, adult; Z79.02 Long term (current) use of antithrombotics/antiplatelets; Z87.891 Personal history of nicotine dependence; Z79.51 Long term (current) use of inhaled steroids; Z79.82 Long term (current) use of aspirin; Z79.899 Other long term (current) drug therapy
CPT/HCPCS: 36415; 80048; 85014; 85018; 85025; 86850; 86900; 86901; 88307; 88342; 94640; A4649; C9088; C9145; J0131; J0690; J1100; J1170; J2250; J2405; J2704; J2795; J3010; J7120

== ENCOUNTER → 2023-09-21 06:27 | Outpatient (BNV) | payer OTHER, SELFPAY | PROVIDERS: Admitting Provider Surgery; PCP Internal Medicine; Visit Provider Surgery | DX: E66.01 Morbid (severe) obesity due to excess calories (principal); Z68.37 Body mass index [BMI] 37.0-37.9, adult | CPT/HCPCS: 43659; 43775; 99024 ==

== ENCOUNTER 2023-09-28 10:13 | Outpatient (AMB) | payer OTHER, SELFPAY ==
--- NOTE | 2023-09-28 10:46 | MHC.OFFVISWM ---
Intake VS Expanded 09/28/23 10:58 BP 119/59 L Blood Pressure Location Rt brachial Blood Pressure Position Sitting Pulse 88 Pulse Source Pulse Oximeter Temp 97.8 F Temperature Source Temporal Artery Scan Pulse Oximetry 96 Oxygen Delivery Method Room Air Height 5 ft 1 in Weight 183 lb 12.8 oz BMI 34.7 Body Fat % 41.2 Body Fat Mass 75.6 Fat Free Mass 108.0 Visceral Fat Rating 12.0 Body Water % 41.5 Body Water Mass 76.2 Muscle Mass/Score 102.6 Basal Metabolic Rate/Score 1,486 Intake Visit Reasons: (OV) 7 Days PO LSG 09/21/23 Allergies No Known Allergies Allergy (Verified 09/28/23 10:50) HPI HPI Comments History of Present Illness Details 63-year-old female, postop day 7., status post sleeve gastrectomy performed on 09/21/2023. She is doing to celebrate 4 in 1 shakes with [address] Michelle nicole. No complaints of pain. No bowel movement yet. She is tolerating an additional 30 oz of fluid. [facility] Medical History (Updated 09/21/23 @ 08:15 by Luis Felipe Moon MD) PAC (premature atrial contraction) Plantar fasciitis Neuropathy COPD (chronic obstructive pulmonary disease) Peripheral vascular disease Atherosclerotic cardiovascular disease Surgical History (Updated 09/28/23 @ 10:52 by Alicja Parker CMA) S/P laparoscopic sleeve gastrectomy Hx of cardiac catheterization Hx of colonoscopy Hx of tonsillectomy Hx of foot surgery Hx of carpal tunnel repair History of kctlj-qsebf-vignfwt bypass Family History Mother COPD (chronic obstructive pulmonary disease) Hypertension Father Peripheral arterial disease Brother No problems noted. Brother Heart disease Sister No problems noted. Son No problems noted. Daughter No problems noted. Social History Household Members: Spouse Housing: House Are you a primary neonatal critical care nurse to a significant other at home: No Do you presently have visiting nurse or other home services: No Alcohol intake: never Patient Tobacco Use Status: Former Tobacco user Quit Date: 2018 Tobacco use type: Cigarette Second Hand Smoke Exposure: No Substance Use Type: Marijuana Physical Exam GI Inspection: Yes incision (Mild incisional ecchymosis without dehiscence.) Assessment & Plan Assessment & Plan (1) S/P laparoscopic sleeve gastrectomy: Code(s): Z98.84 - Bariatric surgery status Plan: POD 7 s/p LSG on 09/21/[address] Moon Weight loss prior to surgery was 20.4 pounds or 9.4% TBWL. Original weight on 05/06/2023 was 216.8 pounds and op weight was 196.4 pounds. Be sure to text Dr Moon exactly 1 week after surgery your weight from your home scale so he can adjust your meal plan. Continue meal plan until f/u w [facility] in 2 weeks May shower, no submersion in bath for another week Continue abdominal binder with activity and exercise for the next 2 weeks. Exercise prior to surgery was stationary bike and walking, may resume No abdominal exercises for 6 weeks post operatively Will be emailed link to post op video for review Reminded of the pace of drinking, 2 mL per minute, 1 oz/15 min. Coding Level of Care Code Global (62514) Diagnoses S/P laparoscopic sleeve gastrectomy Z98.84
[2023-09-28 10:58] VITALS: BP 119/59; PULSE 88; TEMP 36.6; O2SAT 96; BMI 34.7
== END 2023-09-28 11:10 | disposition home or self-care (01) ==
PROVIDERS: PCP Internal Medicine; Visit Provider Physician Assistant Surgical
DX: Z98.84 Bariatric surgery status (principal)
CPT/HCPCS: 99024

== ENCOUNTER → 2023-09-28 10:13 | Outpatient (BNVA) | payer OTHER, SELFPAY | PROVIDERS: PCP Internal Medicine; Visit Provider Physician Assistant Surgical | DX: Z98.84 Bariatric surgery status (principal) | CPT/HCPCS: 99212 ==

== ENCOUNTER 2023-10-15 09:42 | Outpatient (AMB) | payer OTHER, SELFPAY ==
--- NOTE | 2023-10-15 09:45 | MHC.OFFVISWM ---
Intake VS Expanded 10/15/23 09:53 BP 123/60 Blood Pressure Location Rt brachial Blood Pressure Position Sitting Pulse 91 Pulse Source Pulse Oximeter Temp 96.5 F L Temperature Source Tympanic Pulse Oximetry 95 Oxygen Delivery Method Room Air Height 5 ft 1 in Weight 178 lb 3.2 oz BMI 33.7 Body Fat % 40.8 Body Fat Mass 72.8 Fat Free Mass 105.4 Visceral Fat Rating 12.0 Body Water % 41.8 Body Water Mass 74.6 Muscle Mass/Score 100.0 Basal Metabolic Rate/Score 1,449 Intake Visit Reasons: (OV) PO LSG 09/21/23 Nuclear Equipment Sales Engineer Required: No Allergies No Known Allergies Allergy (Verified 09/28/23 10:50) Medication List - Last Reconciled 10/15/23 by MICAELA Leach aspirin (Adult Aspirin Regimen) 81 mg PO DAILY atorvastatin 40 mg PO BEDTIME chlorhexidine gluconate 4% (Hibiclens) 1 appl topical BID cilostazol 100 mg PO BID clopidogrel 75 mg DAILY clotrimazole 1% 1 appl topical BID fluticasone propion-salmeterol 250-50 mcg/dose (Advair Diskus) 1 inh inhalation BID gabapentin 300 mg PO BEDTIME ondansetron 4 mg PO Q12H pantoprazole 40 mg PO DAILY sucralfate 10 mL PO BID HPI HPI Comments History of Present Illness Details This?a?63?yo female who is s/p LSG without hiatal hernia repair on?09/21/2023. Presents for 1 month post op visit. Weight today is 178.2 pounds, with a BMI of 33.7. There has been a 38.6 pound weight loss,(initial weight 216.8 pounds) since starting the program on 05/06/2023 reflecting a 17.8 % total body weight loss and a weight loss of 18.2 pounds since surgery (operative weight 196.4 pounds) reflecting a 9.2 % TBWL since surgery. No complaints of nausea, emesis, abdominal pain or reflux. Reports infrequent but normal bowel movements every [] days and uses stool softeners regularly. She states that she feels excellent. She is very happy to be able to do things she has not done in years including exercise and bending over to tie her shoes without any discomfort. Present meal plan includes: Celebrate 4 in 1 1 scoop in 8 oz almond milk 2 x per day, 11-1, 4-6 Drinking 32 oz water daily ? Exercise routine includes: bike 45 min 2 x per day, 305 calories, daily [facility] Medical History BMI 37.0-37.9, adult BMI 38.0-38.9,adult Preoperative cardiovascular examination Morbid obesity PAC (premature atrial contraction) Plantar fasciitis Neuropathy COPD (chronic obstructive pulmonary disease) Peripheral vascular disease Atherosclerotic cardiovascular disease Surgical History S/P laparoscopic sleeve gastrectomy Hx of cardiac catheterization Hx of colonoscopy Hx of tonsillectomy Hx of foot surgery Hx of carpal tunnel repair History of vbkok-sflrr-aeridho bypass Family History Mother COPD (chronic obstructive pulmonary disease) Hypertension Father Peripheral arterial disease Brother No problems noted. Brother Heart disease Sister No problems noted. Son No problems noted. Daughter No problems noted. Social History Household Members: Spouse Housing: House Are you a primary adult day care worker to a significant other at home: No Do you presently have visiting nurse or other home services: No Alcohol intake: never Patient Tobacco Use Status: Former Tobacco user Quit Date: 2018 Tobacco use type: Cigarette Second Hand Smoke Exposure: No Substance Use Type: Marijuana Review of Systems Const All systems reviewed & are unremarkable except as noted in HPI and below Physical Exam Vital Signs: Last Vital Signs Temp 96.5 F L 10/15/23 09:53 Pulse 91 10/15/23 09:53 BP 123/60 10/15/23 09:53 Pulse Ox 95 10/15/23 09:53 Oxygen Delivery Method Room Air 10/15/23 09:53 BMI result Body Mass Index 33.7 Const General: healthy appearing and no acute distress Resp Effort & Inspection: normal respiratory effort Auscultation: clear to auscultation bilaterally Cardio Rate: regular rate Rhythm: regular rhythm GI Auscultation: normal bowel sounds Extrem General: Yes normal to inspection Assessment & Plan Assessment & Plan (1) S/P laparoscopic sleeve gastrectomy: Code(s): Z98.84 - Bariatric surgery status Plan: Doing very well overall. She is very satisfied. Change male plan: Celebrate 4 in 1: 1 scoop 5-7, and 9-11 Two scoops, 1-3 Atkins bar 5-8 Continue exercise. Return to clinic 1 month. Coding Level of Care Code Global (22179) Diagnoses S/P laparoscopic sleeve gastrectomy Z98.84
[2023-10-15 09:53] VITALS: BP 123/60; PULSE 91; TEMP 35.8; O2SAT 95; BMI 33.7
== END 2023-10-15 10:19 | disposition home or self-care (01) ==
PROVIDERS: PCP Internal Medicine; Visit Provider Physician Assistant Surgical
DX: Z98.84 Bariatric surgery status (principal)
CPT/HCPCS: 99024

== ENCOUNTER → 2023-10-15 09:42 | Outpatient (BNVA) | payer OTHER, SELFPAY | PROVIDERS: PCP Internal Medicine; Visit Provider Physician Assistant Surgical | DX: Z48.815 Encounter for surgical aftercare following surgery on the digestive system (principal); Z98.84 Bariatric surgery status | CPT/HCPCS: 99212 ==

== ENCOUNTER 2023-11-12 14:58 | Outpatient (AMB) | payer SELFPAY ==
--- NOTE | 2023-11-12 09:46 | A.OFFVIS_ITS ---
Intake VS Expanded 11/12/23 09:47 Height 5 ft 1 in Weight 171 lb 11.2 oz BMI 32.4 Body Fat % 44.2 Body Fat Mass 75.8 Visceral Fat Rating 13 Body Water % 45.1 Body Water Mass 77.4 Muscle Mass/Score 88.4 Basal Metabolic Rate/Score 1,278 Intake Visit Reasons: tv PO LSG 09/21/23 Aquatic Habitat Biologist Required: No Allergies No Known Allergies Allergy (Verified 09/28/23 10:50) Medication List - Last Reconciled 11/12/23 by MICAELA Leach aspirin (Adult Aspirin Regimen) 81 mg PO DAILY atorvastatin 40 mg PO BEDTIME chlorhexidine gluconate 4% (Hibiclens) 1 appl topical BID cilostazol 100 mg PO BID clopidogrel 75 mg DAILY clotrimazole 1% 1 appl topical BID fluticasone propion-salmeterol 250-50 mcg/dose (Advair Diskus) 1 inh inhalation BID gabapentin 300 mg PO BEDTIME pantoprazole 40 mg PO DAILY sucralfate 10 mL PO BID HPI HPI Comments History of Present Illness Details This?a?63?yo female who is s/p LSG without hiatal hernia repair on?09/21/2023. Presents for 2 month post op visit. Weight today is 171.7 pounds, with a BMI of 32.4. There has been a 45.1 pound weight loss,(initial weight 216.8 pounds) since starting the program on 05/06/2023 reflecting a 20.8 % total body weight loss and a weight loss of 24.7 pounds since surgery (operative weight 196.4 pounds) reflecting a 12.5 % TBWL since surgery. No complaints of nausea, emesis, abdominal pain or reflux. Reports infrequent but normal bowel movements every 2 days and uses stool softeners regularly. She states that she feels excellent. She is very happy to be able to do things she has not done in years including exercise and bending over to tie her shoes without any discomfort. She has had f/u with [facility] and is cleared after her procedure and she has f/u in January. She is walking daily with her dog without claudication but does have some pain in her feet from likely plantar fasciitis. f/u w podiatry dr montoya when she gets her insurance again. Present meal plan includes: Celebrate 4 in 1: 1 scoop 5-7, and 9-11 Two scoops, 1-3 Atkins bar 5-8 Drinking 32 oz water daily ? Exercise routine includes: bike 2 hrs per day, 445 calories, daily PFSH Medical History BMI 37.0-37.9, adult BMI 38.0-38.9,adult Preoperative cardiovascular examination Morbid obesity PAC (premature atrial contraction) Plantar fasciitis Neuropathy COPD (chronic obstructive pulmonary disease) Peripheral vascular disease Atherosclerotic cardiovascular disease Surgical History S/P laparoscopic sleeve gastrectomy Hx of cardiac catheterization Hx of colonoscopy Hx of tonsillectomy Hx of foot surgery Hx of carpal tunnel repair History of rbydl-dlsbd-bjenxyx bypass Family History Mother COPD (chronic obstructive pulmonary disease) Hypertension Father Peripheral arterial disease Brother No problems noted. Brother Heart disease Sister No problems noted. Son No problems noted. Daughter No problems noted. Social History Household Members: Spouse Housing: House Are you a primary doggy daycare activities director to a significant other at home: No Do you presently have visiting nurse or other home services: No Alcohol intake: never Patient Tobacco Use Status: Former Tobacco user Quit Date: 2018 Tobacco use type: Cigarette Second Hand Smoke Exposure: No Substance Use Type: Marijuana Assessment & Plan Assessment & Plan (1) S/P laparoscopic sleeve gastrectomy: Code(s): Z98.84 - Bariatric surgery status Plan: Overall making slow but steady progress. She is doing the best that she can. She has had angiogram for her intermittent claudication with significant improvement. She continues to have complaints of bilateral plantar fasciitis but is able to now walk approximately a mi. she will continue current meal plan with the addition of 4 for fulls of cooked vegetables. She will text later next week or the week after to let me know how things are going and if she wants to incorporate more food. Continue current exercise regimen. Return to clinic 3 weeks. Telehealth Telehealth Location of provider rendering services: practice address Location of patient: address on file Patient Identification confirmed using: Name, : Yes Telehealth method: voice only Patient verbally consented to treatment: Yes Patient verbally consented to billing insurance company: Yes Patient informed of any privacy concerns related to visit: Yes Minutes spent on Phone/Video with Pt.: 20 Coding Level of Care Code Global (42067) Diagnoses S/P laparoscopic sleeve gastrectomy Z98.84
[2023-11-12 09:47] VITALS: BMI 32.4
== END 2023-11-12 15:01 | disposition home or self-care (01) ==
LOC: HO.HBS 14:58
PROVIDERS: PCP Internal Medicine; Visit Provider Physician Assistant Surgical
DX: Z98.84 Bariatric surgery status (principal)
CPT/HCPCS: 99024

== ENCOUNTER 2023-12-17 11:11 | Outpatient (AMB) | payer BC, SELFPAY ==
[2023-12-17 10:44] VITALS: BMI 30.7
--- NOTE | 2023-12-17 10:44 | A.OFFVIS_ITS ---
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: No Allergies No Known Allergies Allergy (Verified 09/28/23 10:50) Medication List - Last Reconciled 12/17/23 by MICAELA Leach aspirin (Adult Aspirin Regimen) 81 mg PO DAILY atorvastatin 40 mg PO BEDTIME chlorhexidine gluconate 4% (Hibiclens) 1 appl topical BID cilostazol 100 mg PO BID clopidogrel 75 mg DAILY clotrimazole 1% 1 appl topical BID fluticasone propion-salmeterol 250-50 mcg/dose (Advair Diskus) 1 inh inhalation BID gabapentin 300 mg PO BEDTIME pantoprazole 40 mg PO DAILY sucralfate 10 mL PO BID HPI HPI Comments History of Present Illness Details This?a?63?yo female who is s/p LSG without hiatal hernia repair on?09/21/2023. Presents for 3 month post op visit. Weight today is 162.4 pounds, with a BMI of 30.7. There has been a 54.4 pound weight loss,(initial weight 216.8 pounds) since starting the program on 05/06/2023 reflecting a 25 % total body weight loss and a weight loss of 34 pounds since surgery (operative weight 196.4 pounds) reflecting a 17.3 % TBWL since surgery. No complaints of nausea, emesis, abdominal pain or reflux. Reports infrequent but normal bowel movements every 2 days and uses stool softeners regularly. She states that she feels excellent. She is very happy to be able to do things she has not done in years including exercise and bending over to tie her shoes without any discomfort. She has had f/u with [facility] and is cleared after her procedure and she has f/u in January. She is walking daily with her dog without claudication but does have some pain in her feet from likely plantar fasciitis. f/u w podiatry dr montoya when she gets her insurance again. Down from a size 18 to 12-14 pant. Wants to start food Present meal plan includes: Celebrate 4 in 1: 1 scoop 5-7, and 9-11 Two scoops, 1-3 Atkins bar 5-8 Drinking 40 oz water daily ? Exercise routine includes: walking 1/2 mile TID with her dog. bike 1 hr per day, 225-245 calories, daily REPLACED BY [facility] Medical History BMI 37.0-37.9, adult BMI 38.0-38.9,adult Preoperative cardiovascular examination Morbid obesity PAC (premature atrial contraction) Plantar fasciitis Neuropathy COPD (chronic obstructive pulmonary disease) Peripheral vascular disease Atherosclerotic cardiovascular disease Surgical History S/P laparoscopic sleeve gastrectomy Hx of cardiac catheterization Hx of colonoscopy Hx of tonsillectomy Hx of foot surgery Hx of carpal tunnel repair History of ujqyj-vbtdu-fxqyuck bypass Family History Mother COPD (chronic obstructive pulmonary disease) Hypertension Father Peripheral arterial disease Brother No problems noted. Brother Heart disease Sister No problems noted. Son No problems noted. Daughter No problems noted. Social History Household Members: Spouse Housing: House Are you a primary restorative care technician to a significant other at home: No Do you presently have visiting nurse or other home services: No Alcohol intake: never Patient Tobacco Use Status: Former Tobacco user Quit Date: 2018 Tobacco use type: Cigarette Second Hand Smoke Exposure: No Substance Use Type: Marijuana Assessment & Plan Assessment & Plan (1) S/P laparoscopic sleeve gastrectomy: Code(s): Z98.84 - Bariatric surgery status Plan: Patient is making very good progress. She would like to incorporate food. We will change her meal plan accordingly. Celebrate 4 in 1 protein shake 2 scoops at 7-9 and 11-1 Meal with 4 forks of protein and 4 of cooked vegetables 1/2 cup fresh berrries if needed Continue exercises she is able. She has made fantastic progress in terms of her claudication. Encouraged to try to reach 300 calories daily. Return to the office 1 month. Telehealth Telehealth Location of provider rendering services: practice address Location of patient: address on file Patient Identification confirmed using: Name, : Yes Telehealth method: voice only Patient verbally consented to treatment: Yes Patient verbally consented to billing insurance company: Yes Patient informed of any privacy concerns related to visit: Yes Minutes spent on Phone/Video with Pt.: 15 Coding Level of Care Code Tele Est Pt Level 3 (26585) Diagnoses S/P laparoscopic sleeve gastrectomy Z98.84 Time Spent (min) 18
== END 2023-12-17 11:17 | disposition home or self-care (01) ==
LOC: HO.HBS 11:11
PROVIDERS: PCP Internal Medicine; Visit Provider Physician Assistant Surgical
DX: E66.9 Obesity, unspecified (principal); Z68.30 Body mass index [BMI] 30.0-30.9, adult; Z90.3 Acquired absence of stomach [part of]; Z98.84 Bariatric surgery status
CPT/HCPCS: 99024

== ENCOUNTER → 2023-12-17 11:11 | Outpatient (BNVA) | payer BC, SELFPAY | PROVIDERS: PCP Internal Medicine; Visit Provider Physician Assistant Surgical ==

== ENCOUNTER 2024-01-17 10:17 | Outpatient (AMB) | payer BC, SELFPAY ==
--- NOTE | 2024-01-17 08:23 | A.OFFVIS_ITS ---
Intake VS Expanded 01/17/24 08:24 Height 5 ft 1 in Weight 157 lb 12.8 oz BMI 29.8 Body Fat % 41.3 Body Fat Mass 65.1 Fat Free Mass 9.7 Visceral Fat Rating 11 Body Water % 46.5 Body Water Mass 73.3 Muscle Mass/Score 85.9 Basal Metabolic Rate/Score 1,219 Intake Visit Reasons: tv PO LSG 09/21/23 All Source Analyst Required: No Allergies No Known Allergies Allergy (Verified 09/28/23 10:50) Medication List - Last Reconciled 01/17/24 by MICAELA Leach aspirin (Adult Aspirin Regimen) 81 mg PO DAILY cilostazol 100 mg PO BID clopidogrel 75 mg DAILY fluticasone propion-salmeterol 250-50 mcg/dose (Advair Diskus) 1 inh inhalation BID HPI HPI Comments History of Present Illness Details This?a?63?yo female who is s/p LSG without hiatal hernia repair on?09/21/2023. Presents for 4 month post op visit. Weight today is 157.8 pounds, with a BMI of 29.8. There has been a 59 pound weight loss,(initial weight 216.8 pounds) since starting the program on 05/06/2023 reflecting a 27.2 % total body weight loss and a weight loss of 38.6 pounds since surgery (operative weight 196.4 pounds) reflecting a 19.6 % TBWL since surgery. No complaints of nausea, emesis, abdominal pain or reflux. Reports infrequent but normal bowel movements every 2 days and uses stool softeners regularly. She states that she feels excellent. She is very happy to be able to do things she has not done in years including exercise and bending over to tie her shoes without any discomfort. She has had f/u with [facility] and is cleared after her procedure and she has f/u in January. She is walking daily with her dog without claudication but does have some pain in her feet from likely plantar fasciitis. f/u w podiatry dr montoya. Overall satisfied with her meal plan. Present meal plan includes: Celebrate 4 in 1 protein shake 2 scoops at 7-9 and 11-1 Meal with 4 forks of protein and 4 of cooked vegetables 1/2 cup fresh berries if needed Drinking 40 oz water daily ? Exercise routine includes: walking 1/2 mile TID with her dog. no bike for the last 3 weeks but her daughter had to move in temporarily bike 1 hr per day, 225-245 calories, daily [facility] Medical History BMI 37.0-37.9, adult BMI 38.0-38.9,adult Preoperative cardiovascular examination Morbid obesity PAC (premature atrial contraction) Plantar fasciitis Neuropathy COPD (chronic obstructive pulmonary disease) Peripheral vascular disease Atherosclerotic cardiovascular disease Surgical History S/P laparoscopic sleeve gastrectomy Hx of cardiac catheterization Hx of colonoscopy Hx of tonsillectomy Hx of foot surgery Hx of carpal tunnel repair History of tpmbc-vcdnp-dqtaxyw bypass Family History Mother COPD (chronic obstructive pulmonary disease) Hypertension Father Peripheral arterial disease Brother No problems noted. Brother Heart disease Sister No problems noted. Son No problems noted. Daughter No problems noted. Social History Household Members: Spouse Housing: House Are you a primary critical care physician assistant to a significant other at home: No Do you presently have visiting nurse or other home services: No Alcohol intake: never Patient Tobacco Use Status: Former Tobacco user Quit Date: 2018 Tobacco use type: Cigarette Second Hand Smoke Exposure: No Substance Use Type: Marijuana Assessment & Plan Assessment & Plan (1) Overweight (BMI 25.0-29.9): Code(s): E66.3 - Overweight Plan: Overall, patient is doing well. She is improving and continues to lose weight. She wishes to continue her meal plan although would like to incorporate salad which she may do so at this point. We will slightly change her meal plan to include 4 for close of protein and 6 of vegetables or salad at dinnertime. She will continue her celebrate 4 in 1, 2 scoops, x2, x1 more month and then consider changing. We will have her return to the office for a telephone visit in 1 month and in person in 2 months. Check six-month labs at that point. She is significantly reduced her medication reliance and is very happy about this. She will resume exercise as soon as her daughter and children move out of the house which will be January 23. Telehealth Telehealth Location of provider rendering services: practice address Location of patient: address on file Patient Identification confirmed using: Name, : Yes Telehealth method: voice only Patient verbally consented to treatment: Yes Patient verbally consented to billing insurance company: Yes Patient informed of any privacy concerns related to visit: Yes Minutes spent on Phone/Video with Pt.: 15 Coding Level of Care Code Tele Est Pt Level 3 (77462) Diagnoses Overweight (BMI 25.0-29.9) E66.3 Time Spent (min) 18
[2024-01-17 08:24] VITALS: BMI 29.8
== END 2024-01-17 10:23 | disposition home or self-care (01) ==
LOC: HO.HBS 10:17
PROVIDERS: PCP Internal Medicine; Visit Provider Physician Assistant Surgical
DX: E66.3 Overweight (principal); Z68.29 Body mass index [BMI] 29.0-29.9, adult
CPT/HCPCS: 99442

== ENCOUNTER → 2024-01-17 10:17 | Outpatient (BNVA) | payer BC, SELFPAY | PROVIDERS: PCP Internal Medicine; Visit Provider Physician Assistant Surgical ==

== ENCOUNTER 2024-02-21 08:49 | Outpatient (AMB) | payer BC, SELFPAY ==
[2024-02-21 08:51] VITALS: BMI 29.0
--- NOTE | 2024-02-21 08:51 | MHC.OFFVISWM ---
VS Expanded 02/21/24 08:51 Height 5 ft 1 in Weight 153 lb 6.4 oz BMI 29.0 Body Fat % 40.4 Body Fat Mass 61.9 Fat Free Mass 49.5 Visceral Fat Rating 10 Body Water % 47 Body Water Mass 72 Muscle Mass/Score 85 Basal Metabolic Rate/Score 1,199 Intake Visit Reasons: tv PO LSG 09/21/23 Intelligence Agent Required: No Allergies No Known Allergies Allergy (Verified 09/28/23 10:50) Medication List - Last Reconciled 02/21/24 by MICAELA Leach aspirin (Adult Aspirin Regimen) 81 mg PO DAILY cilostazol 100 mg PO BID clopidogrel 75 mg DAILY fluticasone propion-salmeterol 250-50 mcg/dose (Advair Diskus) 1 inh inhalation BID HPI Comments Details: This?a?63?yo female who is s/p LSG without hiatal hernia repair on?09/21/2023. Presents for 5 month post op visit. Weight today is 153.4 pounds, with a BMI of 29. There has been a 63.4 pound weight loss,(initial weight 216.8 pounds) since starting the program on 05/06/2023 reflecting a 29.2 % total body weight loss and a weight loss of 43 pounds since surgery (operative weight 196.4 pounds) reflecting a 21.8 % TBWL since surgery. No complaints of nausea, emesis, abdominal pain or reflux. Reports infrequent but normal bowel movements every 2 days and uses stool softeners regularly. She states that she feels excellent. She states she begins to feel hungry during the [employer] games. She is very happy to be able to do things she has not done in years including exercise and bending over to tie her shoes without any discomfort. She has had f/u with [facility] and is cleared after her procedure and she has f/u in February. She also states she has a mass on her ovary and is scheduled for architecture department chair surgery in May. Sooner if available. She is walking daily with her dog without claudication but does have some pain in her feet from likely plantar fasciitis. f/u w podiatry dr montoya. Overall satisfied with her meal plan. Present meal plan includes: Celebrate 4 in 1 protein shake 2 scoops at 7-9 2 scoops at 11-1 5 pm Meal with 4 forks of protein and 6 of cooked vegetables 1/2 cup fresh berries if needed Drinking 40-50 oz water daily ? Exercise routine includes: walking 1/2 mile (25 min) TID with her dog. previously bike 1 hr per day, 225-245 calories, daily PFSH Medical History BMI 37.0-37.9, adult BMI 38.0-38.9,adult Preoperative cardiovascular examination Morbid obesity PAC (premature atrial contraction) Plantar fasciitis Neuropathy COPD (chronic obstructive pulmonary disease) Peripheral vascular disease Atherosclerotic cardiovascular disease Surgical History S/P laparoscopic sleeve gastrectomy Hx of cardiac catheterization Hx of colonoscopy Hx of tonsillectomy Hx of foot surgery Hx of carpal tunnel repair History of psscl-crcyq-pjjdqfp bypass Family History Mother COPD (chronic obstructive pulmonary disease) Hypertension Father Peripheral arterial disease Brother No problems noted. Brother Heart disease Sister No problems noted. Son No problems noted. Daughter No problems noted. Social History Household Members: Spouse Housing: House Are you a primary child care coordinator to a significant other at home: No Do you presently have visiting nurse or other home services: No Alcohol intake: never Patient Tobacco Use Status: Former Tobacco user Quit Date: 2018 Tobacco use type: Cigarette Second Hand Smoke Exposure: No Substance Use Type: Marijuana Telehealth Telehealth Telehealth Platform: Telephone Location of provider rendering services: practice address Location of patient: address on file Patient Identification confirmed using: Name, : Yes Telehealth method: voice only Patient verbally consented to treatment: Yes Patient verbally consented to billing insurance company: Yes Patient informed of any privacy concerns related to visit: Yes Minutes spent on Phone/Video with Pt.: 15 Assessment & Plan Assessment & Plan (1) Overweight (BMI 25.0-29.9): Code(s): E66.3 - Overweight Category: Medical Plan: Overall, making good progress. Discussed the importance of regular exercise. She states that she has been somewhat anxious in the evenings while watching the [employer] hockey game. We will change meal plans slightly: Celebrate 4 in 1 protein shake 2 scoops at 7-9 1 scoops at 11-1 Yi yogurt 3 pm 5 pm Meal with 4 forks of protein and 6 of cooked vegetables 1/2 cup fresh berries if needed during hockey games Encouraged to increase exercise, add yoga for beginning as 3-4 times per week and resume stationary bike. Follow-up in office 1 month. Check six-month postop labs at that time.
== END 2024-02-21 09:16 | disposition home or self-care (01) ==
LOC: HO.HBS 08:49
PROVIDERS: PCP Internal Medicine; Visit Provider Physician Assistant Surgical
DX: E66.3 Overweight (principal); Z68.29 Body mass index [BMI] 29.0-29.9, adult
CPT/HCPCS: 99442

== ENCOUNTER → 2024-02-21 08:49 | Outpatient (BNVA) | payer BC, SELFPAY | PROVIDERS: PCP Internal Medicine; Visit Provider Physician Assistant Surgical ==

== ENCOUNTER 2024-03-24 08:57 | Outpatient (AMB) | payer BC, MEDICARE, SELFPAY ==
--- NOTE | 2024-03-24 09:01 | A.OFFVIS_ITS ---
VS Expanded 03/24/24 09:11 BP 136/61 Blood Pressure Location Rt brachial Blood Pressure Position Sitting Pulse 55 Pulse Source Pulse Oximeter Temp 96.2 F L Temperature Source Tympanic Pulse Oximetry 94 Oxygen Delivery Method Room Air Height 5 ft 1 in Weight 146 lb 12.8 oz BMI 27.7 Body Fat % 34.0 Body Fat Mass 49.8 Fat Free Mass 96.8 Visceral Fat Rating 9.0 Body Water % 46.6 Body Water Mass 68.4 Muscle Mass/Score 92.0 Basal Metabolic Rate/Score 1,309 Intake Visit Reasons: PO LSG 09/21/23 Monitoring Coordinator Required: No Allergies No Known Allergies Allergy (Verified 03/24/24 09:02) Medication List - Last Reconciled 03/24/24 by MICAELA Leach aspirin (Adult Aspirin Regimen) 81 mg PO DAILY clopidogrel 75 mg DAILY fluticasone propion-salmeterol 250-50 mcg/dose (Advair Diskus) 1 inh inhalation BID HPI Comments Details: This?a?63?yo female who is s/p LSG without hiatal hernia repair on?09/21/2023. Presents for 6 month post op visit. Weight today is 146.8 pounds, with a BMI of 27.7. There has been a 70 pound weight loss,(initial weight 216.8 pounds) since starting the program on 05/06/2023 reflecting a 32.2 % total body weight loss and a weight loss of 49.6 pounds since surgery (operative weight 196.4 pounds) reflecting a 25.2 % TBWL since surgery. No complaints of nausea, emesis, abdom inal pain or reflux. Reports infrequent but normal bowel movements every 2 days and uses stool softeners regularly. She states that she feels excellent. She states she feels great and fitting into her clothes much better. She is walking daily with her dog without claudication but does have some pain in her feet from likely plantar fasciitis. f/u w podiatry dr montoya. Overall satisfied with her meal plan. Present meal plan includes: Celebrate 4 in 1 protein shake 2 scoops at 7-9 1 scoops at 11-1 Faroese yogurt 3 pm 5 pm Meal with 4 forks of protein and 6 of cooked vegetables 1/2 cup fresh berries if needed during hockey games Drinking 48 oz water daily ? Exercise routine includes: walking 1/2 mile (25 min) TID with her dog. bike 1 hr 2x per day, 300 calories, daily [facility] Medical History BMI 37.0-37.9, adult BMI 38.0-38.9,adult Preoperative cardiovascular examination Morbid obesity PAC (premature atrial contraction) Plantar fasciitis Neuropathy COPD (chronic obstructive pulmonary disease) Peripheral vascular disease Atherosclerotic cardiovascular disease Surgical History S/P laparoscopic sleeve gastrectomy Hx of cardiac catheterization Hx of colonoscopy Hx of tonsillectomy Hx of foot surgery Hx of carpal tunnel repair History of shvpk-tfzeg-xklzquf bypass Family History Mother COPD (chronic obstructive pulmonary disease) Hypertension Father Peripheral arterial disease Brother No problems noted. Brother Heart disease Sister No problems noted. Son No problems noted. Daughter No problems noted. Social History Household Members: Spouse Housing: House Are you a primary veterinarian laboratory animal care to a significant other at home: No Do you presently have visiting nurse or other home services: No Alcohol intake: never Patient Tobacco Use Status: Former Tobacco user Tobacco use type: Cigarette Second Hand Smoke Exposure: No Substance Use Type: Marijuana Review of Systems Const All systems reviewed & are unremarkable except as noted in HPI and below Physical Exam Const General: cooperative and no acute distress Orientation/consciousness: patient oriented x3 Resp Effort & Inspection: normal respiratory effort Auscultation: clear to auscultation bilaterally Cardio Rate: regular rate Rhythm: regular rhythm GI Inspection: Yes normal to inspection and Yes incision (well healed) Palpation (GI): Soft to palpation and no masses Neuro General: patient oriented x3 Assessment & Plan Assessment & Plan (1) S/P laparoscopic sleeve gastrectomy: Code(s): Z98.84 - Bariatric surgery status Category: Surgical Plan: Doing great, continue current meal plans, check labs, rtc 6 weeks. Orders: Orders Hemoglobin A1c Today E78.00 - Pure hypercholesterolemia, unspecified, I25.10 - Atherosclerotic heart disease of [place] coronary artery without angina pectoris, I73.9 - Peripheral vascular disease, unspecified, Z98.84 - Bariatric surgery status IRON PROFILE Today E78.00 - Pure hypercholesterolemia, unspecified, I25.10 - Atherosclerotic heart disease of [place] coronary artery without angina pectoris, I73.9 - Peripheral vascular disease, unspecified, Z98.84 - Bariatric surgery status Vitamin B12 and Folate Today E78.00 - Pure hypercholesterolemia, unspecified, I25.10 - Atherosclerotic heart disease of [place] coronary artery without angina pectoris, I73.9 - Peripheral vascular disease, unspecified, Z98.84 - Bariatric surgery status Vitamin B1 Today E78.00 - Pure hypercholesterolemia, unspecified, I25.10 - Atherosclerotic heart disease of [place] coronary artery without angina pectoris, I73.9 - Peripheral vascular disease, unspecified, Z98.84 - Bariatric surgery status TSH reflex Free T4 Today E78.00 - Pure hypercholesterolemia, unspecified, I25.10 - Atherosclerotic heart disease of [place] coronary artery without angina pectoris, I73.9 - Peripheral vascular disease, unspecified, Z98.84 - Bariatric surgery status Ferritin Today E78.00 - Pure hypercholesterolemia, unspecified, I25.10 - Atherosclerotic heart disease of [place] coronary artery without angina pectoris, I73.9 - Peripheral vascular disease, unspecified, Z98.84 - Bariatric surgery status Vitamin D 25-OH Total Today E78.00 - Pure hypercholesterolemia, unspecified, I25.10 - Atherosclerotic heart disease of [place] coronary artery without angina pectoris, I73.9 - Peripheral vascular disease, unspecified, Z98.84 - Bariatric surgery status Insulin Today E78.00 - Pure hypercholesterolemia, unspecified, I25.10 - Atherosclerotic heart disease of [place] coronary artery without angina pectoris, I73.9 - Peripheral vascular disease, unspecified, Z98.84 - Bariatric surgery s tatus Complete Blood Count Auto Diff Today E78.00 - Pure hypercholesterolemia, unspecified, I25.10 - Atherosclerotic heart disease of [place] coronary artery without angina pectoris, I73.9 - Peripheral vascular disease, unspecified, Z98.84 - Bariatric surgery status Lipid Panel Today E78.00 - Pure hypercholesterolemia, unspecified, I25.10 - Atherosclerotic heart disease of [place] coronary artery without angina pectoris, I73.9 - Peripheral vascular disease, unspecified, Z98.84 - Bariatric surgery status Zinc Today E78.00 - Pure hypercholesterolemia, unspecified, I25.10 - Atherosclerotic heart disease of [place] coronary artery without angina pectoris, I73.9 - Peripheral vascular disease, unspecified, Z98.84 - Bariatric surgery status C Reactive Protein Today E78.00 - Pure hypercholesterolemia, unspecified, I25.10 - Atherosclerotic heart disease of [place] coronary artery without angina pectoris, I73.9 - Peripheral vascular disease, unspecified, Z98.84 - Bariatric surgery status Vitamin A Today E78.00 - Pure hypercholesterolemia, unspecified, I25.10 - At herosclerotic heart disease of [place] coronary artery without angina pectoris, I73.9 - Peripheral vascular disease, unspecified, Z98.84 - Bariatric surgery status Basic Metabolic Panel Today E78.00 - Pure hypercholesterolemia, unspecified, I25.10 - Atherosclerotic heart disease of [place] coronary artery without angina pectoris, I73.9 - Peripheral vascular disease, unspecified, Z98.84 - Bariatric surgery status
[2024-03-24 09:11] VITALS: BP 136/61; PULSE 55; TEMP 35.7; O2SAT 94; BMI 27.7
== END 2024-03-24 09:35 | disposition home or self-care (01) ==
PROVIDERS: PCP Internal Medicine; Visit Provider Physician Assistant Surgical
DX: E66.3 Overweight (principal); Z68.27 Body mass index [BMI] 27.0-27.9, adult; Z90.3 Acquired absence of stomach [part of]; Z98.84 Bariatric surgery status
CPT/HCPCS: 99214

== ENCOUNTER → 2024-03-24 08:57 | Outpatient (BNVA) | payer BC, SELFPAY | PROVIDERS: PCP Internal Medicine; Visit Provider Physician Assistant Surgical | DX: Z98.84 Bariatric surgery status (principal) | CPT/HCPCS: 99212 ==

== ENCOUNTER 2024-03-27 08:09 | Outpatient (REF) | payer MEDICARE, BC, SELFPAY ==
[2024-03-27 08:37] LABS: MANUAL DIFF FLAG NO
[2024-03-27 08:40] LABS: Basophils Percent Auto 0.4 % (0-2); Eosinophils Percent Auto 0.6 % (0-4); Hematocrit 39.2 % (37.0-47.0); Hemoglobin 12.8 g/dl (12.0-16.0); Imm Gran Abs Auto 0.02 X10*3/uL (0.00-0.03); Imm Gran Pct Auto 0.3 % (0.0-0.4); Lymphocytes Absolute Auto 2.5 X10*3/uL (1.2-4.9); Lymphocytes Percent Auto 33.8 % (20-40); Mean Corpuscular HGB Conc 32.7 g/dl (31.0-35.0); Mean Corpuscular Hemoglobin 30.5 pg (27.0-33.0); Mean Corpuscular Volume 93.6 fL (80.0-98.0); Mean Platelet Volume 10.2 fL (9.4-12.3); Monocytes Absolute Auto 0.5 X10*3/uL (0.1-1.2); Monocytes Percent Auto 7.2 % (2-11); Neutrophils Absolute Auto 4.2 x10*3/uL (2.0-8.3); Neutrophils Percent Auto 57.7 % (45-73); Platelet Count 300 X10*3/uL (160-400); Red Blood Count 4.19 X10*6/uL (4.20-5.50); Red Cell Distribution Width 12.7 % (11.0-16.0); White Blood Count 7.2 X10*3/uL (4.8-10.8)
[2024-03-27 08:55] LABS: Estimated Average Glucose 114 mg/dL; Hemoglobin A1c % 5.6 % (<6.0)
[2024-03-27 09:49] LABS: Anion Gap 11 (12-20); Blood Urea Nitrogen 17 mg/dL (9-16); C Reactive Protein 0.12 mg/dL (< or = 0.50); Calcium 9.7 mg/dL (8.4-10.2); Carbon Dioxide 29 mmol/L (22-29); Chloride 106 mmol/L (96-108); Cholesterol 161 mg/dL (<200); Estimated Glomerular Filt Rate > 60; Glucose Random 93 mg/dL (60-115); HDL Cholesterol 41 mg/dL (>40); Iron 85 mcg/dL (30-160); LDL Cholesterol Calculated 106 mg/dL (<100); Percent Iron Saturation 31 % (15-50); Potassium 3.7 mmol/L (3.3-5.1); Sodium 142 mmol/L (135-145); Total Iron Binding Capacity 271 mcg/dL (228-428); Triglycerides 73 mg/dL (<150); Unsaturated Iron Binding 186 ug/dL
[2024-03-27 10:02] LABS: Ferritin 145 ng/mL (10-250); TSH reflex Free T4 1.18 uIU/mL (0.32-4.0); Vitamin D 25-OH Total 45.7 ng/mL (>30)
[2024-03-27 11:56] LABS: Insulin 7 uU/mL (2-29)
[2024-03-27 12:08] LABS: Vitamin B12 783 pg/mL (200-900)
[2024-03-30 16:27] LABS: Zinc 66 mcg/dL (60-130)
[2024-03-31 05:50] LABS: Vitamin A 47 mcg/dL (38-98)
[2024-04-03 06:39] LABS: Vitamin B1 53 nmol/L (8-30)
== END 2024-03-27 08:10 | disposition home or self-care (01) ==
LOC: HO.LAB 08:09
PROVIDERS: Visit Provider Physician Assistant Surgical
DX: I25.10 Atherosclerotic heart disease of native coronary artery without angina pectoris (principal); E78.00 Pure hypercholesterolemia, unspecified; I73.9 Peripheral vascular disease, unspecified; Z98.84 Bariatric surgery status
CPT/HCPCS: 36415; 80048; 80061; 82306; 82607; 82728; 82746; 83036; 83525; 83540; 84425; 84443; 84590; 84630; 85025; 86140

== ENCOUNTER 2024-05-05 08:59 | Outpatient (AMB) | payer MEDICARE, BC, SELFPAY ==
--- NOTE | 2024-05-05 08:33 | MHC.OFFVISWM ---
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 Presents for 8 month post op visit. Weight today is 144.4 pounds, with a BMI of 27.7. There has been a 72.4 pound weight loss,(initial weight 216.8 pounds) since starting the program on 05/06/2023 reflecting a 33.3 % total body weight loss and a weight loss of 52 pounds since surgery (operative weight 196.4 pounds) reflecting a 26.4 % TBWL since surgery. No complaints of nausea, emesis, abdominal pain or reflux. Reports infrequent but normal bowel movements every 2 days and uses stool softeners regularly. She states that she feels excellent. She states she feels great and fitting into her clothes much better. She is walking daily with her dog without claudication but does have some pain in her feet from likely plantar fasciitis. f/u w podiatry dr montoya. She is scheduled for hysterectomy in May. Overall satisfied with her meal plan. Down from 8 meds to 3. Overall, she is extremely satisfied with the results of her procedure and would like to continue her current meal plan as listed below. Present meal plan includes: Celebrate 4 in 1 protein shake 2 scoops at 7-9 1 scoops at 11-1 British yogurt 3 pm 5 pm Meal with 4 forks of protein and 6 of cooked vegetables 1/2 cup fresh berries if needed during hockey games Drinking 48 oz water daily ? Exercise routine includes: walking 1/2 mile (25 min) TID with her dog. bike 1 hr 1x per day, 300 calories, daily [facility] Medical History BMI 37.0-37.9, adult BMI 38.0-38.9,adult Preoperative cardiovascular examination Morbid obesity PAC (premature atrial contraction) Plantar fasciitis Neuropathy COPD (chronic obstructive pulmonary disease) Peripheral vascular disease Atherosclerotic cardiovascular disease Surgical History S/P laparoscopic sleeve gastrectomy Hx of cardiac catheterization Hx of colonoscopy Hx of tonsillectomy Hx of foot surgery Hx of carpal tunnel repair History of auzen-xowma-vxagkwa bypass Family History Mother COPD (chronic obstructive pulmonary disease) Hypertension Father Peripheral arterial disease Brother No problems noted. Brother Heart disease Sister No problems noted. Son No problems noted. Daughter No problems noted. Social History Household Members: Spouse Housing: House Are you a primary career technical supervisor to a significant other at home: No Do you presently have visiting nurse or other home services: No Alcohol intake: never Patient Tobacco Use Status: Former Tobacco user Tobacco use type: Cigarette Second Hand Smoke Exposure: No Substance Use Type: Marijuana Telehealth Telehealth Telehealth Platform: Telephone Location of provider rendering services: practice address Location of patient: address on file Patient Identification confirmed using: Name, : Yes Telehealth method: voice only Patient verbally consented to treatment: Yes Patient verbally consented to billing insurance company: Yes Patient informed of any privacy concerns related to visit: Yes Minutes spent on Phone/Video with Pt.: 10 Assessment & Plan Assessment & Plan (1) Overweight (BMI 25.0-29.9): Code(s): E66.3 - Overweight Category: Medical Plan: Continue current meal plan. Encouraged to continue to send weight is weekly. She may contact us at any time should she have any questions. She is overall very very satisfied with her results. We will arrange for follow-up visits.
[2024-05-05 08:34] VITALS: BMI 27.3
== END 2024-05-05 08:59 | disposition home or self-care (01) ==
LOC: HO.HBS 08:59
PROVIDERS: PCP Internal Medicine; Visit Provider Physician Assistant Surgical
DX: E66.3 Overweight (principal); Z68.27 Body mass index [BMI] 27.0-27.9, adult; Z98.84 Bariatric surgery status
CPT/HCPCS: 99441

== ENCOUNTER → 2024-05-05 08:59 | Outpatient (BNVA) | payer MEDICARE, BC, SELFPAY | PROVIDERS: PCP Internal Medicine; Visit Provider Physician Assistant Surgical | DX: Z98.84 Bariatric surgery status (principal); E78.00 Pure hypercholesterolemia, unspecified; I73.9 Peripheral vascular disease, unspecified; I25.10 Atherosclerotic heart disease of native coronary artery without angina pectoris ==

== ENCOUNTER 2024-07-17 08:30 | Outpatient (AMB) | payer MEDICARE, BC, SELFPAY ==
--- NOTE | 2024-07-17 08:27 | A.OFFVIS_ITS ---
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 Presents for 10 month post op visit. Weight today is 141.7 pounds, with a BMI of 26.7. There has been a 75.1 pound weight loss,(initial weight 216.8 pounds) since starting the program on 05/06/2023 reflecting a 34.6 % total body weight loss and a weight loss of 54.7 pounds since surgery (operative weight 196.4 pounds) reflecting a 27.8 % TBWL since surgery. No complaints of nausea, emesis, abdominal pain or reflux. Reports infrequent but normal bowel movements every 2 days and uses stool softeners regularly. She states that she feels excellent. She states she feels great and fitting into her clothes much better. She is walking daily with her dog without claudication but does have some pain in her feet from likely plantar fasciitis. f/u w podiatry dr montoya. She had her hysterectomy in May. She just resumed some exercise with walking. Present meal plan includes: Celebrate 4 in 1 protein shake 2 scoops at 7-9 1 scoops at 11-1 Romansh yogurt 3 pm 5 pm Meal with 4 forks of protein and 6 of cooked vegetables 1/2 cup fresh berries if needed Drinking 48 oz water daily ? Exercise routine includes: walking 1/2 mile (25 min) TID with her dog. bike 1 hr 1x per day, 300 calories, daily [facility]PLAC[facility] BY [facility] Medical History BMI 37.0-37.9, adult BMI 38.0-38.9,adult Preoperative cardiovascular examination Morbid obesity PAC (premature atrial contraction) Plantar fasciitis Neuropathy COPD (chronic obstructive pulmonary disease) Peripheral vascular disease Atherosclerotic cardiovascular disease Surgical History S/P hysterectomy S/P laparoscopic sleeve gastrectomy Hx of cardiac catheterization Hx of colonoscopy Hx of tonsillectomy Hx of foot surgery Hx of carpal tunnel repair History of mbabb-rkunh-kunojwz bypass Family History Mother COPD (chronic obstructive pulmonary disease) Hypertension Father Peripheral arterial disease Brother No problems noted. Brother Heart disease Sister No problems noted. Son No problems noted. Daughter No problems noted. Social History Household Members: Spouse Housing: House Are you a primary home care administrator to a significant other at home: No Do you presently have visiting nurse or other home services: No Alcohol intake: never Patient Tobacco Use Status: Former Tobacco user Tobacco use type: Cigarette Second Hand Smoke Exposure: No Substance Use Type: Marijuana Telehealth Telehealth Telehealth Platform: Telephone Location of provider rendering services: practice address Location of patient: address on file Patient Identification confirmed using: Name, : Yes Telehealth method: voice only Patient verbally consented to treatment: Yes Patient verbally consented to billing insurance company: Yes Patient informed of any privacy concerns related to visit: Yes Minutes spent on Phone/Video with Pt.: 15 Assessment & Plan Assessment & Plan (1) Overweight (BMI 25.0-29.9): Code(s): E66.3 - Overweight Category: Medical Plan: Patient has done exceptionally well. She is very happy with her progress. She did have a slight setback in exercise capacitance and meal plan although her meal plan has now resumed. This was all due to her recent hysterectomy performed last month. She is recovering, she is now walking more. Her plan is to continue to walk and increase her exercise endurance as she is able. She will continue her current meal plan as she wishes to do this. We will have her return to the office as scheduled. She was encouraged to continue to text weekly especially with any questions or concerns.
[2024-07-17 08:28] VITALS: BMI 26.7
== END 2024-07-17 09:07 | disposition home or self-care (01) ==
LOC: HO.HBS 08:38
PROVIDERS: PCP Internal Medicine; Visit Provider Physician Assistant Surgical
DX: E66.3 Overweight (principal); Z68.26 Body mass index [BMI] 26.0-26.9, adult; Z90.3 Acquired absence of stomach [part of]; Z98.84 Bariatric surgery status
CPT/HCPCS: 98967

== ENCOUNTER → 2024-07-17 08:30 | Outpatient (BNVA) | payer MEDICARE, BC, SELFPAY | PROVIDERS: PCP Internal Medicine; Visit Provider Physician Assistant Surgical | DX: Z98.84 Bariatric surgery status (principal); E78.00 Pure hypercholesterolemia, unspecified; I73.9 Peripheral vascular disease, unspecified; I25.10 Atherosclerotic heart disease of native coronary artery without angina pectoris ==

== ENCOUNTER → 2024-08-08 11:20 | Outpatient (REF) | payer BC, MEDICARE, SELFPAY ==
--- NOTE | 2024-08-08 11:23 | HM_ITS ---
* Total monitoring time about 3 days. * Underlying rhythm is sinus with an average rate of 61/Min. * Frequent supraventricular ectopy with a burden of 17%. Very brief runs. * Minimal ventricular ectopy. * No significant pauses or high-grade AV blocks. * No patient markers or diary events. MTDD
== END ==
LOC: HO.CARD 11:20
PROVIDERS: PCP Internal Medicine; Visit Provider Internal Medicine
DX: R00.2 Palpitations (principal); I49.1 Atrial premature depolarization
CPT/HCPCS: 93242

== ENCOUNTER → 2024-08-08 11:23 | Outpatient (BNV) | payer BC, MEDICARE, SELFPAY | PROVIDERS: PCP Internal Medicine; Visit Provider Internal Medicine | DX: I47.10 Supraventricular tachycardia, unspecified (principal) | CPT/HCPCS: 93244 ==

== ENCOUNTER 2024-09-04 09:54 | Outpatient (AMB) | payer BC, SELFPAY ==
[2024-09-04 09:56] VITALS: BP 140/62; PULSE 58; BMI 27.0
--- NOTE | 2024-09-04 09:56 | A.OFFVIS_ITS ---
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 In the past, she was seen for that reason. She also has strong vascular history and has had aortoiliac/femoral bypass in the past. Cardiac catheterization 2019 had shown nonobstructive disease. Since last seen, she states she has had bariatric surgery lost more than 80 lb in weight. Feels good overall. No cardiac symptoms. [facility] Medical History BMI 37.0-37.9, adult BMI 38.0-38.9,adult Preoperative cardiovascular examination Morbid obesity PAC (premature atrial contraction) Plantar fasciitis Neuropathy COPD (chronic obstructive pulmonary disease) Peripheral vascular disease Atherosclerotic cardiovascular disease Surgical History S/P hysterectomy S/P laparoscopic sleeve gastrectomy Hx of cardiac catheterization Hx of colonoscopy Hx of tonsillectomy Hx of foot surgery Hx of carpal tunnel repair History of jfexl-ndcsg-nffubmn bypass Family History Mother COPD (chronic obstructive pulmonary disease) Hypertension Father Peripheral arterial disease Brother No problems noted. Brother Heart disease Sister No problems noted. Son No problems noted. Daughter No problems noted. Social History Household Members: Spouse Housing: House Are you a primary hospice care transitions coordinator to a significant other at home: No Do you presently have visiting nurse or other home services: No Alcohol intake: never Patient Tobacco Use Status: Former Tobacco user Tobacco use type: Cigarette Second Hand Smoke Exposure: No Substance Use Type: Marijuana Review of Systems Const Denies chills, Denies fatigue, Denies fever(s), Denies weight gain and Denies weight loss ENT Denies dizziness Card Denies chest pain, Denies leg edema, Denies lightheadedness, Denies palpitations, Denies dyspnea on exertion, Denies orthopnea and Denies other Resp Denies cough and Denies dyspnea on exertion GI Denies hematochezia and Denies change in stool character Musc Denies abnormal gait, Denies muscle weakness, Denies numbness, Denies radiating pain into limb and Denies tingling Neuro Denies abnormal gait, Denies dizziness, Denies numbness and Denies tingling Endo Denies fatigue and Denies palpitations Physical Exam Vital Signs: Last Vital Signs Pulse 58 09/04/24 09:56 BP 140/62 H 09/04/24 09:56 BMI result Body Mass Index 27.0 Const General: comfortable and no acute distress Orientation/consciousness: patient oriented x3 HEENT Other: Unremarkable Head: Yes normal to inspection Neck Neck: Yes normal visual inspection Chest Chest palpation & inspection: normal inspection of the chest Resp Auscultation: clear to auscultation bilaterally Cardio Palpation: normal PMI Heart sounds: S1 normal heart sound present, S2 normal heart sound present, no gallops, no murmurs and no rubs GI Palpation (GI): Soft to palpation Back/Spine/Pelvis Other: unremarkable Skin General skin exam: no rashes or lesions noted Neuro General: patient oriented x3 Extrem General: Yes normal to inspection Psych Mental Status: mental status grossly normal Office Procedures EKG Details: EKG with underlying sinus bradycardia at 58/Min; no significant ST-T changes; [place] [id number], Complete Assessment & Plan Assessment & Plan (1) Atherosclerotic cardiovascular disease: Code(s): I25.10 - Atherosclerotic heart disease of [place] coronary artery without angina pectoris Category: Medical (2) PAC (premature atrial contraction): Code(s): I49.1 - Atrial premature depolarization Category: Medical (3) Peripheral vascular disease: Code(s): I73.9 - Peripheral vascular disease, unspecified Category: Medical Plan Cardiac studies reviewed. Holter-underlying sinus rhythm with frequent supraventricular ectopy with a burden of 17%. Previously, somewhat similar to about 15%. Cardiac catheterization 2019-nonobstructive disease only. Nothing hemodynamically significant. Echocardiogram with hyperdynamic LVEF; no significant valvular issues. Overall, there is increased risk of atrial fibrillation in the future but otherwise no specific management for now. As she is losing a lot of weight, may be of some help. Check home sleep study as well. With regard to medications, she is on dual antiplatelet therapy long-term and not clear why. We can stop the aspirin and just keep her on Plavix. She was on statins in the past and advised her to resume it-it seems might have been stopped after the weight loss surgery. With a history of vascular issues in the past, recommend that she stays on long-term in spite of weight loss. Otherwise, blood pressure is borderline high advised her to do home blood pressures. Based on this, may need to change meds. Orders: Orders RT home sleep study Today G47.33 - Obstructive sleep apnea (adult) (pediatric) ECG 3 day holter monitor 1 Year I49.1 - Atrial premature depolarization, R00.2 - Palpitations Coding Level of Care Code Est Pt Level 4 (81291) Diagnoses Atherosclerotic cardiovascular disease I25.10 PAC (premature atrial contraction) I49.1 Peripheral vascular disease I73.9 CPT Codes EKG - CPT: 29137-[id number], Complete ([id number])
== END 2024-09-04 10:32 | disposition home or self-care (01) ==
PROVIDERS: PCP Internal Medicine; Visit Provider Internal Medicine
DX: I25.10 Atherosclerotic heart disease of native coronary artery without angina pectoris (principal); I49.1 Atrial premature depolarization; I73.9 Peripheral vascular disease, unspecified
CPT/HCPCS: 93010; 99214

== ENCOUNTER → 2024-09-04 09:54 | Outpatient (BNVA) | payer BC, SELFPAY | PROVIDERS: PCP Internal Medicine; Visit Provider Internal Medicine | DX: I25.10 Atherosclerotic heart disease of native coronary artery without angina pectoris (principal); I49.1 Atrial premature depolarization; I73.9 Peripheral vascular disease, unspecified; Z79.02 Long term (current) use of antithrombotics/antiplatelets | CPT/HCPCS: 93005 ==

== ENCOUNTER 2024-09-18 08:55 | Outpatient (AMB) | payer MEDICARE, BC, SELFPAY ==
--- NOTE | 2024-09-18 08:57 | A.OFFVIS_ITS ---
VS Expanded 09/18/24 09:07 BP 135/61 Blood Pressure Location Rt brachial Blood Pressure Position Sitting Pulse 58 Pulse Source Pulse Oximeter Temp 97.3 F Temperature Source Temporal Artery Scan Pulse Oximetry 98 Oxygen Delivery Method Room Air Height 5 ft 1 in Weight 140 lb 6.4 oz BMI 26.5 Body Fat % 30.7 Body Fat Mass 43.0 Fat Free Mass 97.2 Visceral Fat Rating 8.0 Body Water % 48.9 Body Water Mass 68.6 Muscle Mass/Score 92.4 Basal Metabolic Rate/Score 1,302 Intake Visit Reasons: oV PO LSG 09/21/23 Allergies No Known Allergies Allergy (Verified 09/18/24 09:09) HPI Comments Details: This?a?64?yo female who is s/p LSG without hiatal hernia repair on?09/21/2023. Presents for 1 year post op visit. Weight today is 140.4 pounds, with a BMI of 26.5. There has been a 76.4 pound weight loss,(initial weight 216.8 pounds) since starting the program on 05/06/2023 reflecting a 34.8 % total body weight loss and a weight loss of 55.9 pounds since surgery (operative weight 196.4 pounds) reflecting a 28 % TBWL since surgery. No complaints of nausea, emesis, abdominal pain or reflux. Reports infrequent but normal bowel movements every 2 days and uses stool softeners regularly. She states that she feels excellent. She states she feels great and fitting into her clothes much better. She is walking daily with her dog without claudication but does have some pain in her feet from likely plantar fasciitis. f/u w podiatry dr montoya. She had her hysterectomy in May. She just resumed some exercise with walking. Present meal plan includes: Celebrate 4 in 1 protein shake 2 scoops at 7-9 1 scoops at 11-1 Stateless yogurt 3 pm 5 pm Meal with 4 forks of protein and 6 of cooked vegetables 1/2 cup fresh berries if needed Drinking 48 oz water daily ? Exercise routine includes: walking 1/2 mile (25 min) TID with her dog. bike 1 hr 1x per day, 4 x per week, 300 calories, daily Any post op complications: none HANH: never DM: never HTN: never Hyperlipidemia: improved GERD:?0-5 scale ??0 = no symptoms ??1 = symptoms noticeable but not bothersome 2 =symptoms bothersome but not daily ? 3 = symptoms bothersome and daily 4 = symptoms affect daily activities 5 = symptoms are incapacitating, unable to do daily activities ? How bad is the heartburn: 0 ? Heartburn while lying down: 0 ? Heartburn when standing up: 0 ? Heartburn after meals: 0 ? Does heartburn change your diet: 0 ? Does heartburn wake you up from sleep: 0 ? Do you have difficulty swallowin ? Do you have pain with swallowin ? If you take medicine for your reflux, does this affect your daily life: 0 Satisfaction with present condition - satisfied or not satisfied: mary [facility] Medical History BMI 37.0-37.9, adult BMI 38.0-38.9,adult Preoperative cardiovascular examination Morbid obesity PAC (premature atrial contraction) Plantar fasciitis Neuropathy COPD (chronic obstructive pulmonary disease) Peripheral vascular disease Atherosclerotic cardiovascular disease Surgical History S/P hysterectomy S/P laparoscopic sleeve gastrectomy Hx of cardiac catheterization Hx of colonoscopy Hx of tonsillectomy Hx of foot surgery Hx of carpal tunnel repair History of mhpdy-ffxpy-gbefpio bypass Family History Mother COPD (chronic obstructive pulmonary disease) Hypertension Father Peripheral arterial disease Brother No problems noted. Brother Heart disease Sister No problems noted. Son No problems noted. Daughter No problems noted. Social History Household Members: Spouse Housing: House Are you a primary home care assistant to a significant other at home: No Do you presently have visiting nurse or other home services: No Alcohol intake: never Patient Tobacco Use Status: Former Tobacco user Tobacco use type: Cigarette Second Hand Smoke Exposure: No Substance Use Type: Marijuana Physical Exam Vital Signs: Last Vital Signs Temp 97.3 F 09/18/24 09:07 Pulse 58 09/18/24 09:07 BP 135/61 09/18/24 09:07 Pulse Ox 98 09/18/24 09:07 Oxygen Delivery Method Room Air 09/18/24 09:07 BMI result Body Mass Index 26.5 Const General: cooperative and no acute distress Orientation/consciousness: patient oriented x3 Resp Effort & Inspection: normal respiratory effort Auscultation: clear to auscultation bilaterally Cardio Rate: regular rate Rhythm: regular rhythm GI Inspection: Yes normal to inspection and Yes incision (well healed) Palpation (GI): Soft to palpation and no masses Neuro General: patient oriented x3 Assessment & Plan Assessment & Plan (1) S/P laparoscopic sleeve gastrectomy: Code(s): Z98.84 - Bariatric surgery status Category: Surgical Plan: Patient is doing very well. She has achieved a healthy weight. She is extremely satisfied with her outcome. We will continue her current meal plan and exercise plan. Encouraged to continue to text weekly with her weight is and with any questions or concerns. Check 1 year postop labs. Return to clinic 3 months. Orders: Orders Insulin Today E78.00 - Pure hypercholesterolemia, unspecified, I25.10 - Atherosclerotic heart disease of [place] coronary artery without angina pectoris, I73.9 - Peripheral vascular disease, unspecified, Z98.84 - Bariatric surgery status IRON PROFILE Today E78.00 - Pure hypercholesterolemia, unspecified, I25.10 - Atherosclerotic heart disease of [place] coronary artery without angina pectoris, I73.9 - Peripheral vascular disease, unspecified, Z98.84 - Bariatric surgery status Comprehensive Met. Panel Today E78.00 - Pure hypercholesterolemia, unspecified, I25.10 - Atherosclerotic heart disease of [place] coronary artery without angina pectoris, I73.9 - Peripheral vascular disease, unspecified, Z98.84 - Bariatric surgery status Zinc Today E78.00 - Pure hypercholesterolemia, unspecified, I25.10 - Atherosclerotic heart disease of [place] coronary artery without angina pectoris, I73.9 - Peripheral vascular disease, unspecified, Z98.84 - Bariatric surgery status Vitamin B1 Today E78.00 - Pure hypercholesterolemia, unspecified, I25.10 - Atherosclerotic heart disease of [place] coronary artery without angina pectoris, I73.9 - Peripheral vascular disease, unspecified, Z98.84 - Bariatric surgery status Ferritin Today E78.00 - Pure hypercholesterolemia, unspecified, I25.10 - Atherosclerotic heart disease of [place] coronary artery without angina pectoris, I73.9 - Peripheral vascular disease, unspecified, Z98.84 - Bariatric surgery status Vitamin D 25-OH Total Today E78.00 - Pure hypercholesterolemia, unspecified, I25.10 - Atherosclerotic heart disease of [place] coronary artery without angina pectoris, I73.9 - Peripheral vascular disease, unspecified, Z98.84 - Bariatric surgery status Hemoglobin A1c Today E78.00 - Pure hypercholesterolemia, unspecified, I25.10 - Atherosclerotic heart disease of [place] coronary artery without angina pectoris, I73.9 - Peripheral vascular disease, unspecified, Z98.84 - Bariatric surgery st atus Complete Blood Count Auto Diff Today E78.00 - Pure hypercholesterolemia, unspecified, I25.10 - Atherosclerotic heart disease of [place] coronary artery without angina pectoris, I73.9 - Peripheral vascular disease, unspecified, Z98.84 - Bariatric surgery status Lipid Panel Today E78.00 - Pure hypercholesterolemia, unspecified, I25.10 - Atherosclerotic heart disease of [place] coronary artery without angina pectoris, I73.9 - Peripheral vascular disease, unspecified, Z98.84 - Bariatric surgery status Vitamin B12 and Folate Today E78.00 - Pure hypercholesterolemia, unspecified, I25.10 - Atherosclerotic heart disease of [place] coronary artery without angina pectoris, I73.9 - Peripheral vascular disease, unspecified, Z98.84 - Bariatric surgery status C Reactive Protein Today E78.00 - Pure hypercholesterolemia, unspecified, I25.10 - Atherosclerotic heart disease of [place] coronary artery without angina pectoris, I73.9 - Peripheral vascular disease, unspecified, Z98.84 - Bariatric surgery status Vitamin A Today E78.00 - Pure hypercholesterolemia, unspecified, I25.10 - Atherosclerotic heart disease of [place] coronary artery without angina pectoris, I73.9 - Peripheral vascular disease, unspecified, Z98.84 - Bariatric surgery status TSH reflex Free T4 Today E78.00 - Pure hypercholesterolemia, unspecified, I25.10 - Atherosclerotic heart disease of [place] coronary artery without angina pectoris, I73.9 - Peripheral vascular disease, unspecified, Z98.84 - Bariatric surgery status
[2024-09-18 09:07] VITALS: BP 135/61; PULSE 58; TEMP 36.3; O2SAT 98; BMI 26.5
== END 2024-09-18 09:31 | disposition home or self-care (01) ==
PROVIDERS: PCP Internal Medicine; Visit Provider Physician Assistant Surgical
DX: E66.3 Overweight (principal); Z68.26 Body mass index [BMI] 26.0-26.9, adult; Z90.3 Acquired absence of stomach [part of]; Z98.84 Bariatric surgery status
CPT/HCPCS: 99213; G2211

== ENCOUNTER → 2024-09-18 08:55 | Outpatient (BNVA) | payer MEDICARE, BC, SELFPAY | PROVIDERS: PCP Internal Medicine; Visit Provider Physician Assistant Surgical | DX: E66.01 Morbid (severe) obesity due to excess calories (principal); Z68.26 Body mass index [BMI] 26.0-26.9, adult; Z90.3 Acquired absence of stomach [part of] | CPT/HCPCS: 99212 ==

== ENCOUNTER 2024-12-04 08:30 | Outpatient (AMB) | payer BC, MEDICARE, SELFPAY ==
--- NOTE | 2024-12-04 08:05 | MHC.OFFVISWM ---
VS Expanded 12/04/24 08:06 Height 5 ft 1 in Weight 141 lb 7 oz BMI 26.7 Body Fat % 38.2 Visceral Fat Rating 9 Body Water % 47.9 Muscle Mass/Score 81.1 Basal Metabolic Rate/Score 1,124 Intake Visit Reasons: TV PO LSG 09/21/23 Extractor Operator Required: No Allergies No Known Allergies Allergy (Verified 09/18/24 09:09) Medication List - Last Reconciled 12/04/24 by MICAELA Leach atorvastatin 40 mg PO QPM clopidogrel 75 mg DAILY fluticasone propion-salmeterol 250-50 mcg/dose (Advair Diskus) 1 inh inhalation BID HPI Comments Details: This?a?64?yo female who is s/p LSG without hiatal hernia repair on?09/21/2023. Presents for 1 year 2 month post op visit. Weight today is 141.7 pounds, with a BMI of 26.7. There has been a 75.1 pound weight loss,(initial weight 216.8 pounds) since starting the program on 05/06/2023 reflecting a 34.6 % total body weight loss and a weight loss of 54.7 pounds since surgery (operative weight 196.4 pounds) reflecting a 27.8 % TBWL since surgery. No complaints of nausea, emesis, abdominal pain or reflux. Reports infrequent but normal bowel movements every 2 days and uses stool softeners regularly. She states that she feels excellent. She states she feels great and fitting into her clothes much better. She is walking daily with her dog without claudication but does have some pain in her feet from likely plantar fasciitis. f/u w podiatry dr motnoya. She had her hysterectomy in May. She is walking twice daily during the day. Taking MVI (celebrate) every other day. Present meal plan includes: Celebrate 4 in 1 protein shake 2 scoops at 7-9 1 scoops at 11-1 Wolof yogurt 3 pm 5 pm Meal with 4 forks of protein and 6 of cooked vegetables 1/2 cup fresh berries if needed Drinking 48 oz water daily ? Exercise routine includes: walking 1/2 mile (25 min) BID with her dog. bike 1 hr 1x per day, 4 x per week, 300 calories, daily PFSH Medical History BMI 37.0-37.9, adult BMI 38.0-38.9,adult Preoperative cardiovascular examination Morbid obesity PAC (premature atrial contraction) Plantar fasciitis Neuropathy COPD (chronic obstructive pulmonary disease) Peripheral vascular disease Atherosclerotic cardiovascular disease Surgical History S/P hysterectomy S/P laparoscopic sleeve gastrectomy Hx of cardiac catheterization Hx of colonoscopy Hx of tonsillectomy Hx of foot surgery Hx of carpal tunnel repair History of ijgci-[id number]-[id number] bypass Family History Mother COPD (chronic obstructive pulmonary disease) Hypertension Father Peripheral arterial disease Brother No problems noted. Brother Heart disease Sister No problems noted. Son No problems noted. Daughter No problems noted. Social History Household Members: Spouse Housing: House Are you a primary career technical counselor to a significant other at home: No Do you presently have visiting nurse or other home services: No Alcohol intake: never Patient Tobacco Use Status: Former Tobacco user Tobacco use type: Cigarette Second Hand Smoke Exposure: No Substance Use Type: Marijuana Telehealth Telehealth Telehealth Platform: Telephone Location of provider rendering services: practice address Location of patient: address on file Patient Identification confirmed using: Name, : Yes Telehealth method: voice only Patient verbally consented to treatment: Yes Patient verbally consented to billing insurance company: Yes Patient informed of any privacy concerns related to visit: Yes Minutes spent on Phone/Video with Pt.: 12 Assessment & Plan Assessment & Plan (1) S/P laparoscopic sleeve gastrectomy: Code(s): Z98.84 - Bariatric surgery status Category: Surgical Plan: Overall, patient is doing very well. She is satisfied with her weight loss that she has achieved. She has maintained relative stability over the last several months. She did have some financially in security and was unable to have Wolof yogurt during the afternoon, these financial instabilities are somewhat improving. She may certainly substitute a protein bar for the yogurt as she sees fit. She will continue to exercise as she is able. Plan for return to clinic in approximately 4 months with the understanding that she may continue and was encouraged to continue to send weight is weekly and text with any questions or concerns.
[2024-12-04 08:06] VITALS: BMI 26.7
== END 2024-12-04 08:46 | disposition home or self-care (01) ==
LOC: HO.HBS 08:42
PROVIDERS: PCP Internal Medicine; Visit Provider Physician Assistant Surgical
DX: E66.3 Overweight (principal); Z68.26 Body mass index [BMI] 26.0-26.9, adult; Z90.3 Acquired absence of stomach [part of]; Z98.84 Bariatric surgery status
CPT/HCPCS: 99213

== ENCOUNTER → 2024-12-04 08:30 | Outpatient (BNVA) | payer BC, MEDICARE, SELFPAY | PROVIDERS: PCP Internal Medicine; Visit Provider Physician Assistant Surgical | DX: Z98.84 Bariatric surgery status (principal); E78.00 Pure hypercholesterolemia, unspecified; I73.9 Peripheral vascular disease, unspecified; I25.10 Atherosclerotic heart disease of native coronary artery without angina pectoris ==

== ENCOUNTER → 2025-08-27 07:53 | Outpatient (REF) | payer BC, MEDICARE, SELFPAY ==
--- NOTE | 2025-08-27 07:55 | HM_ITS ---
Conclusion: 1. Patient was monitored for total period of 2 days and 22 hours 2. Baseline was normal sinus rhythm with average heart of 67 beats per minute 3. No significant pauses noted 4. Rare PACs noted with frequent short runs of SVT, longest lasting 40 beats with the fastest heart rate of 171 beats per minute 5. No patient reported events MTDD
--- OUTSIDE RECORDS SUMMARY | 2025-08-27 07:55 | XMS_ITS | Clinical Summary ---
Author Organization [address] Address [address] [place] [address] [place] [address] Phone Care Team Providers Care Resident Care Aide Name Role Phone Megan Willson MD Primary Care Provider [phone] Allergies No known active allergies Medications cilostazoL (PLETAL) 100 mg tablet Take 1 tablet (100 mg total) by mouth 2 (two) times a day. 3 Active aspirin 81 mg EC tablet Take 1 tablet (81 mg total) by mouth 1 (one) time each day. 3 Active fluticasone-akin meterol (Advair Diskus) 250-50 mcg/dose diskus inhaler Inhale 1 puff by mouth 2 (two) times a day. 3 each 1 5 Active clopidogreL (PLAVIX) 75 mg tablet Take 1 tablet (75 mg total) by mouth 1 (one) time each day. 90 tablet 1 5 Active atorvastatin (LIPITOR) 40 mg tablet Take 1 tablet (40 mg total) by mouth at bedtime. 90 each 1 5 Active atorvastatin (LIPITOR) 40 mg tablet Take 1 tablet (40 mg total) by mouth at bedtime. 90 each 1 5 08/15/20 25 Discontinu ed(Reorder ) fluticasone-akin meterol (Advair Diskus) 250-50 mcg/dose diskus inhaler Inhale 1 puff by mouth 2 (two) times a day. 3 each 5 08/15/20 25 Discontinu ed(Reorder ) clopidogreL (PLAVIX) 75 mg tablet Take 1 tablet (75 mg total) by mouth 1 (one) time each day. 5 08/15/20 25 Discontinu ed(Reorder ) Active Problems Problem Noted Date Diagnosed Date Bariatric surgery status 02/18/2025 Overview (02/18/2025): s/p sleeve gastrectomy (08/2023) Diastolic dysfunction 08/31/2023 Overview (10/21/2024): Grade 1 PAC (premature atrial contraction) 08/31/2023 Overview (10/21/2024): [facility]. Dr. Jeffries. Frequent PACs. Holter monitor 08/16/2023. Total burden 15%. 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 Stable since 2018 with normal CA 125 Last Assessment & Plan: As discussed previously, will repeat US. If stable or decreasing further in size, will discontinue imaging. If larger, will obtain MRI. She agreed to schedule this. Pap smear abnormality of cervix with HGSIL 02/26 Overview (10/21/2024): 10/10 Cold knife cone with clear margins, ANNIA 3 Repeat pap in March 2018- neg, neg HPV Last Assessment & Plan: Repeat Pap today Hyperlipidemia 10/09/2016 Encounters Date Type Department Care Team Description 08/15/2025 8:45 AM EDT Office Visit Adult [address] [phone] Megan Willson MD Prediabetes (Primary Dx); Chronic obstructive pulmonary disease, unspecified COPD type ([facility] V24, [facility] V28); Other hyperlipidemia; PAD (peripheral artery disease) ([facility] V24); Raynaud's disease without gangrene 08/15/2025 Results Follow-Up [address] [phone] Megan Willson MD from Last 3 Months Immunizations Immunization Administration Dates Next Due Influenza Quadravalent, MDCK , 0.5ml, preservative free (Flucelvax) 6mo and older 08/31/2023,08/28/2022,09/08/2021,08/01 Influenza trivalent, 0.5mL ( Fluad) 65yo and older 08/15/2025 Pneumococcal conjugate 20 va lent (Prevnar 20, PCV 20) 2mo and older 02/13/2025 Pneumococcal polysaccharide 23 valent (Pneumovax 23) 2yo and older 03/12/2021 Tdap Tetanus diptheria acell ular pertussis (Boostrix; Adacel) 7yo and older 10/08/2016 Zoster recombinant (Shingrix ) 19yo and older 10/14/2020,08/01/2020 Surgical History Surgery Date Site/Laterality Comments COLONOSCOPY 12/28/2016 9 polyps: 2 tubular adenomas; 7 hyperplastic. CERVICAL BIOPSY W/ LOOP ELECTRODE EXCISION 10/07/2017 N/A : CIN3 clear margins CATARACT EXTRACTION 09/2017 CARPAL TUNNEL RELEASE Left COLONOSCOPY 04/10/2021 Polyps x2: hyperplastic and tubular adenoma. Medical History Medical History Date Comments Smoking Hyperlipidemia 10/09/2016 Wheezing 11/29/2017 PVD (peripheral vascular dis ease) ([facility] V24) 08/30/2018 : Diffuse disease legs with claudication Tubular adenoma 02/02/201901/08 2 adenomas; repeat CN 3 years Severe obesity (BMI 35.0-39. 9) with comorbidity ([facility] V24, [facility] V28) 03/12/2021 COPD (chronic obstructive pu lmonary disease) ([facility] V24, [facility] V28) 02/02/2019 Bariatric surgery status 02/18/2025 s/p sle federico gastrectomy (08/2023) Prediabetes 09/12/2021 Family History Medical History Relation Name Comments Coronary artery disease Brother CABG x3 at age 45 Heart attack Father at age 55, PVD COPD Mother at age 80 Breast cancer Neg Hx Colon cancer Neg Hx Ovarian cancer Neg Hx Uterine cancer Neg Hx Relation Name Status Comments Brother Father Mother Social History Tobacco Use Types Packs/Day Years Used Date Smoking Tobacco: Former Cigarettes Q uit: 06/06/2019 Smokeless Tobacco: Never Tobacco Cessation:Counseling Given: Not Answered Alcohol Use Standard Drinks/Week Comments No 0 (1 standard drink = 0.6 oz pur e alcohol) Housing Instability Answer Date Recorde d Are you worried that in the next 2 months you may not have stable housing? No 02/13/2025 Food Access & Nutrition Answer Date Rec orded Do you have access to a vari ety of food including fruits and vegetables? Yes 02/13/2025 Access to Healthcare Answer Date Record ed Within the last 3 months, ho w many times did you visit the emergency department for your medical care? 0 02/13/2025 Health Literacy Answer Date Recorded How often do you need to hav e someone help you when you read instructions, pamphlets, or other written material from your doctor or pharmacy? Never 02/13/2025 Caregiver: How often do you need to have someone help you when you read instructions, pamphlets, or other written material from your doctor or pharmacy? Not on file 02/13/2025 Financial Risk Answer Date Recorded How hard is it for you to pa y for the very basics like food, housing, medical care, and air conditioning / heating? Not very hard 02/13/2025 Transportation Answer Date Recorded Has the lack of transportati on kept you from meetings, work, or from getting things needed for daily living? No Has the lack of transportati on kept you from medical appointments or from getting medications? No 02/13/2025 Social Isolation Answer Date Recorded How often do you feel lonely or isolated from th ose around you? Never 02/13/2025 Food Risk Answer Date Recorded Within the past 12 months we worried whether our food would run out before we got money to buy more. Never true 02/13/2025 Within the past 12 months th e food we bought just didn't last and we didn't have money to get more. Never true 02/13/2025 Dependent Care Answer Date Recorded Do you need help finding or paying for care for your loved ones. For example, children librarian or elderly care for an older adult? No 02/13/2025 Education Answer Date Recorded Do you think completing more education or training, like finishing a GED, going to college, or learning a trade, would be helpful for you? No 02/13/2025 Employment and Income Answer Date Recor ded During the last four weeks, have you been actively looking for work? No 02/13/2025 Living Situation Answer Date Recorded What is your living situation? Unrecognized valu e 02/13/2025 Comments Unknown Sex and Gender Information Value Date Recorded Sex Assigned at Female 05/16/2025 10:19 PM EDT Legal Sex Female 11:47 PM EST Gender Identity Not on file Sexual Orientation Not on file Obstetrics History Last Filed Vital Signs Vital Sign Reading Time Taken Comments Blood Pressure 118/62 08/15/2025 8:39 AM EDT Pulse 62 08/15/2025 8:39 AM EDT Temperature 35.9 C (96.7 F) 08/15/2025 8:39 AM EDT Respiratory Rate 14 08/15/2025 8:39 AM EDT Oxygen Saturation 94% 08/15/2025 8:39 AM EDT Inhaled Oxygen Concentration - - Weight 65.2 kg (143 lb 11.2 oz) 08/15/2025 8:39 AM EDT Height 157.5 cm (5' 2 ) 08/15/2025 8:39 AM EDT Body Mass Index 26.28 08/15/2025 8:39 AM EDT Plan of Treatment Upcoming Encounters Date Type Department Care Team (Late st Contact Info) Description 09/04/2025 2:00 PM EST Appointment Bone Density - [address] [phone] 09/04/2025 2:30 PM EST Appointment Radiology Department - [address] [phone] 01/10/2026 9:00 AM EDT Office Visit Obstetrics and Gynecology - [address] [phone] Ana Carcamo, TRACY [address] [place] [address] 02/13/2026 9:30 AM EDT Office Visit [facility] - [address] [phone] Tiffany Parham PA [address] [place] [phone] Health Maintenance Due Date Last Done Comments RSV Immunization Adult Patients (1 - Risk 50-74 years 1-dose series) 2009 Osteoporosis Screening (Bone Density Screening) 10/03/2022 Cervical Cancer Screening: HPV 01/01/2025 01/02/2020 COVID-19 Vaccine ( season) 2025 11/02/2021, 04/26/2021, 03/29/2021 Breast Cancer Screening 01/06/2026 01/07/20 24, 01/04/2023, 12/30/2021, Additional history exists Falls Risk Assessment 02/13/2026 02/13/2025, 024 Medicare Annual Wellness Visit 02/13/2026 02/13/2025 Social Influencers of Health Screening 02/13/2026 02/13/2025 Lung Cancer Screening (Low Dose CT) 05/21/2026 05/21/2025, 05/24/2024, 05/13/2023, Additional history exists DTaP,Tdap,and Td Vaccines (2 - Td or Tdap) 10/08/2026 10/08/2016 Cholesterol Screening (Lipid Panel) 08/15/2030 08/15/2025, 02/13/2025, 02/25/2023 Colorectal Cancer Screening: Colonoscopy 04/10/2031 04/10/2021 Hepatitis C Screening Completed 10/08/2016 Zoster Vaccines Completed 10/14/2020, 08/01/2020 Pneumococcal Vaccine: 50+ Years Completed 02/13/2025, 03/12/2021 Depression Screening Completed 08/08/2025 Influenza Vaccine Completed 08/15/2025, , 08/28/2022, Additional history exists HIB Vaccines Aged Out No longer eligi ble based on patient's age to complete this topic HPV Vaccines Aged Out No longer eligi ble based on patient's age to complete this topic Hepatitis A Vaccines Aged Out No long er eligible based on patient's age to complete this topic Hepatitis B Vaccines Aged Out No long er eligible based on patient's age to complete this topic IPV Vaccines Aged Out No longer eligi ble based on patient's age to complete this topic MMR Vaccines Aged Out No longer eligi ble based on patient's age to complete this topic Meningococcal ACWY Vaccine Aged Out N o longer eligible based on patient's age to complete this topic Meningococcal B Vaccine Aged Out No l onger eligible based on patient's age to complete this topic RSV Immunization Patients Under 20 months Aged Out No longer eligible based on patient's age to complete this topic Varicella Vaccines Aged Out No longer eligible based on patient's age to complete this topic Procedures Procedure Name Priority Date/Time Associated Diagnosis Comments LIPID PANEL WITH REFLEX TO DIRECT LDL Routine 08/15/2025 9:19 AM EDT Other hyperlipidemia HEMOGLOBIN A1C Routine 08/15/2025 9:[address] LUNG SCREENING Routine 05/21/2025 8:1 2 AM EDT Encounter for screening for malignant neoplasm of respiratory organs Nicotine dependence, cigarettes, uncomplicated HM FALLS RISK ASSESSMENT Routine 05/29/2024 SCREENING MAMMOGRAPHY BI 2-VIEW BREAST INC CAD Routine 01/07/2024 8:11 AM EDT Encounter for screening mammogram for malignant neoplasm of breast COLONOSCOPY Routine 04/10/2021 HPV Routine 01/02/2020 HEPATITIS C SCREENING Routine 10/08/2016 from Last 3 Months or Most Recently Relevant to Health Maintenance Results * Lipid panel with reflex to direct LDL (08/15/2025 9:19 AM EDT) Cholesterol 134 0 - 200 mg/dL LAB CHEMISTRY METHOD 08/15/2025 1:26 PM EDT [facility] Triglycerides 68 0 - 150 mg/dL LAB CHEMISTRY METHOD 08/15/2025 1:26 PM EDT [facility] HDL 61 >=40 mg/dL LAB CHEMISTRY METHOD 08/15/2025 1:26 PM EDT [facility] LDL Calculated 59 0 - 100 mg/dL LAB CHEMISTRY METHOD 08/15/2025 1:26 PM EDT [facility] Comment:Estimated LDL Calcul ated using equation: Total cholesterol - HDL cholesterol - (Triglycerides/5) VLDL Cholesterol Eliot 13.6 mg/dL LAB CHEMISTRY METHOD 08/15/2025 1:26 PM EDT [facility] Non HDL Chol. (LDL+VLDL) 73 <145 mg/dL LAB CHEMISTRY METHOD 08/15/2025 1:26 PM EDT [facility] Chol/HDL Ratio 2.2 0.0 - 4.4 LAB CHEMISTRY METHOD 08/15/2025 1:26 PM EDT [facility] Blood Venous blood specimen / Unknown Venipuncture / Unknown 08/15/2025 9:19 AM EDT 08/15/2025 9:19 AM EDT us Megan Willson MD LAB BLOOD ORDERABLES Final Resul t [facility] [address] [place] [address], [place] [phone] * Hemoglobin A1c (08/15/2025 9:19 AM EDT) Hemoglobin A1C 6.0 <6.5 % LAB CHEMISTRY METHOD 08/15/2025 12:30 PM EDT [facility] Mean Bld Glu Estim. 126 mg/dL LAB CHEMISTRY METHOD 08/15/2025 12:30 PM EDT [facility] Blood Venous blood specimen / Unknown Venipuncture / Unknown 08/15/2025 9:19 AM EDT 08/15/2025 9:19 AM EDT us Megan Willson MD LAB BLOOD ORDERABLES Final Resul t [facility] [address] [place] [address], * CT Lung Screening (05/21/2025 8:12 AM EDT) Anatomical Region Laterality Modality Chest Computed Tomogra phy 05/22/2025 4:14 PM EDT Impressions 05/22/2025 4:22 PM EDT Impression: No suspicious developing pulmonary nodule. No significant change. Lung-RADS Category: Lung-RADS 2: Nodule(s) with benign appearance or behavior. Continue annual screening with Low Dose Chest CT in 12 months. [place] ([id number]) -------- FINAL REPORT -------- Dictated By: Ivonne Neri Dictated Date: 05/22/2025 16:14 ET Assigned Physician: Ivonne Neri Reviewed and Electronically Signed By: Ivonne Neri Signed Date: 05/22/2025 16:22 ET Workstation ID: [id number] Transcribed By: Self Edit Transcribed Date: 05/22/2025 16:14 ET Narrative 05/22/2025 4:22 PM EDT History: 65 year-old 71 pack-year current smoker, asymptomatic, for lung cancer screening. Comparison: 05/19/24 Technique: Helical volumetric imaging of the thorax was performed, using low- dose technique, without IV contrast. DLP: 166.82 mGy/cm CTDIvol: 4.89 mGy GE Dragon T[place] Iterative reconstruction technique Findings: Lungs and Airways: The trachea and central bronchial tree remain patent. Minimal juxta mediastinal atelectasis is again seen at the base of the right middle lobe and lingula. A 4 mm subsolid nodule in the left apex is without significant change (image 35 series 3). No suspicious developing pulmonary nodule is seen. Pleura: No pleural or pericardial effusions are seen. Base of neck, mediastinum and heart: The heart remains normal in size. Atherosclerotic calcification of the thoracic aorta and coronary arteries is again seen. No developing thoracic lymphadenopathy is noted area Soft tissues: A right axillary graft is partially imaged. Abdomen: This study was performed without contrast and with lower than standard dose. These factors reduce the sensitivity for detection of small lesions in the upper abdomen. Sleeve gastrectomy sequela are again noted. A 3.1 x 3.0 cm left adrenal mass contains areas of fat attenuation, compatible with a myelolipoma. Stable dating back to the initial, [address] Procedure Note Ivonne Neri MD - 05/22/2025 History: 65 year-old 71 pack-year current smoker, asymptomatic, for lungcancer screening. Comparison: 05/19/24 Technique: Helical volumetric imaging of the thorax was performed, usinglow-dose technique, without IV contrast. DLP: 166.82 mGy/cm CTDIvol: 4.89 mGy [place] Iterative reconstruction technique Findings: Lungs and Airways: The trachea and central bronchial tree remain patent.Minimal juxta mediastinal atelectasis is again seen at the base of theright middle lobe and lingula. A 4 mm subsolid nodule in the left apex iswithout significant change (image 35 series 3). No suspicious developingpulmonary nodule is seen. Pleura: No pleural or pericardial effusions are seen. Base of neck, mediastinum and heart: The heart remains normal in size.Atherosclerotic calcification of the thoracic aorta and coronary arteriesis again seen. No developing thoracic lymphadenopathy is noted area Soft tissues: A right axillary graft is partially imaged. Abdomen: This study was performed without contrast and with lower thanstandard dose. These factors reduce the sensitivity for detection of smalllesions in the upper abdomen. Sleeve gastrectomy sequela are again noted.A 3.1 x 3.0 cm left adrenal mass contains areas of fat attenuation,compatible with a myelolipoma. Stable dating back to the initial, screening CT. IMPRESSION: Impression: No suspicious developing pulmonary nodule. No significant change. Lung-RADS Category: Lung-RADS 2: Nodule(s) with benign appearance orbehavior. Continue annual screening with Low Dose Chest CT in 12 months. [place] ([id number]) -------- FINAL REPORT -------- Dictated By: Ivonne Neri Dictated Date: 05/22/2025 16:14 ET Assigned Physician: Ivonne Neri Reviewed and Electronically Signed By: Ivonne Neri Signed Date: 05/22/2025 16:22 ET Workstation ID: [id number] Transcribed By: Self Edit Transcribed Date: 05/22/2025 16:14 ET Alice Leung MD IMG CT PROCEDURES Final Result * Falls Risk Assessment (05/29/2024) Falls Risk Assessment ABSTRACTED Historical Provider HEALTH MAINTENANCE Final Result * SCREENING MAMMOGRAPHY BI 2-VIEW BREAST INC CAD (01/07/2024 8:11 AM EDT) Anatomical Region Laterality Modality Radiographic Shahnaz ging 01/04/2023 7:56 AM EDT Narrative 01/07/2024 3:50 PM EDT This is a summary report. The complete report is available in the patient's medical record. If you cannot access the medical record, please contact the sending organization for a detailed fax or copy. Full field digital screening tomosynthesis mammography, reviewed with CAD and compared to previous mammograms dating back to 12/22/2019 with most recent of 01/04/2023. The breasts are composed of fatty and fibroglandular tissue. No suspicious mass, architectural distortion or suspicious calcifications are identified. IMPRESSION: : No mammographic evidence of malignancy. BIRADS 1-Negative; N. 5 year breast cancer risk assessment 1.6 % Lifetime breast cancer risk assessment 6.6 % Breast cancer risk category Low (<15%) Procedure Note Mary Hughes MD - 06/12/2024 This is a summary report. The complete report is available in thepatient's medical record. If you cannot access the medical record, pleasecontact the sending organization for a detailed fax or copy. Full field digital screening tomosynthesis mammography, reviewed with CADand compared to previous mammograms dating back to 12/22/2019 with mostrecent of 01/04/2023. The breasts are composed of fatty and fibroglandulartissue. No suspicious mass, architectural distortion or suspiciouscalcifications are identified. IMPRESSION: : No mammographic evidence of malignancy. BIRADS 1-Negative; N. 5 year breast cancer risk assessment 1.6 % Lifetime breast cancer risk assessment 6.6 % Breast cancer risk category Low (<15%) Yaima Garcia MD IMG XR PROCEDURES Final Res ult * Colonoscopy (04/10/2021) [facility] Colonoscopy no interpretation , abstracted Anatomical Region Laterality Modality Other [facility] Provider HEALTH MAINTENANCE Final Result * Cervical Cancer Screening: HPV (01/02/2020) [facility] Cervical Cancer Screening: HPV negative,a bstracted Result [facility] Provider HEALTH MAINTENANCE Final Result * Hepatitis C Screening (10/08/2016) [facility] Hepatitis C Screening ABSTRACTED [facility] Provider HEALTH MAINTENANCE Final Result from Last 3 Months or Most Recently Relevant to Health Maintenance Insurance MEDICARE [facility] Care Teams Resident Care Aide Relationship Specialty Start Date End Date Megan Willson MD [address] [place] [address] PCP - General Internal Medicine 02/02/19
--- OUTSIDE RECORDS SUMMARY | 2025-08-27 07:55 | XMS_ITS | Encounter Summary ---
Author Organization [facility] [place] [address] Care Team Providers Care Fire Technician Name Role Phone Megan Willson MD Primary Care Provider [phone] Encounter Details Date Type Department Care Team (Late st Contact Info) Description 08/15/2025 Results Follow-Up Adult Medicine [facility] [address] [place] [address] Megan Willson MD [address] [place], [place] Social History Tobacco Use Types Packs/Day Years Used Date Smoking Tobacco: Former Cigarettes Q uit: 06/06/2019 Smokeless Tobacco: Never Alcohol Use Standard Drinks/Week Comments No 0 [...] do you feel lonely or isolated from ose around you? Never 02/13/2025 Food Risk [...] care for your loved ones. For example, child support case officer or elderly care for an older adult? [...] on file Sexual Orientation Not on file documented as of this encounter Plan of Treatment Upcoming Encounters Date Type Department Care Team ([facility] Contact Info) Description 09/04/2025 2:00 PM EST Appointment Bone Density [address] [phone] 09/04/2025 2:30 PM EST Appointment Radiology Department - [address] [phone] 01/10/2026 9:00 AM EDT Office Visit Obstetrics and Gynecology - [address] [phone] Ana Carcamo CNM [address] [place] [address] 02/13/2026 9:30 AM EDT Office Visit [facility] - [address] [phone] Tiffany Parham PA [address] [place] [address] documented as of this encounter Visit Diagnoses Not on filedocumented in this encounter Additional Health Concerns Assessment Noted Time PHQ-9 Depression Total Score: 0 08/08/20 25 10:40 AM EDT A fall risk assessment has been complete d for the patient 02/13/2025 11:05 AM EDT documented as of this encounter Care Teams Fire Technician Relationship Specialty Start Date End Date Megan Willson MD [address] [place] [address] PCP - General Internal Medicine 02/02/19 documented as of this encounter
--- OUTSIDE RECORDS SUMMARY | 2025-08-27 07:55 | XMS_ITS | Clinical Summary ---
Author Organization [facility] Address [address] [place] [address] Care Team Providers Care Beef Grinder Name Role Phone Megan Willson MD Primary Care Provider [phone] Allergies No known active allergies Medications FLUTICASONE FUROATE INHL Rinse mouth with water after use to reduce aftertaste and incidence of candidiasis. Do not swallow. Active aspirin 81 mg EC tablet Take 81 mg by mouth in the morning. Active atorvastatin (Lipitor) 20 mg tablet Take 20 mg by mouth in the morning. Active clopidogrel (Plavix) 75 mg tablet Take by mouth in the morning. Active cilostazol (Pletal) 100 mg tablet Take 100 mg by mouth in the morning and at bedtime. Active fluticasone furoate (Arnuity Ellipta) 200 mcg/actuation inhaler Inhale 1 puff in the morning. Rinse mouth with water after use to reduce aftertaste and incidence of candidiasis. Do not swallow. Active prednisoLONE acetate (Pred-Forte) 1 % ophthalmic suspension Administer 1 drop into the left eye in the morning, at noon, and at bedtime. Active ketorolac (Acular) 0.5 % ophthalmic solution Administer 1 drop into the left eye in the morning, at noon, and at bedtime. Active Active Problems No known active problems Social History Tobacco Use Types Packs/Day Years Used Date Smoking Tobacco: Former Cigarettes 2 35 1 984 - 2019 Smokeless Tobacco: Never Alcohol Use Standard Drinks/Week Comments Never 0 (1 standard drink = 0.6 oz pur e alcohol) Comments No Sex and Gender Information Value Date Recorded Sex Assigned at Not on file Legal Sex Female 6:09 AM EST Gender Identity Not on file Sexual Orientation Not on file Last Filed Vital Signs Vital Sign Reading Time Taken Comments Blood Pressure 92/52 03/17/2022 4:00 PM EDT Pulse 62 03/17/2022 4:00 PM EDT Temperature 36.1 C (97 F) 03/17/2022 3:45 PM EDT Respiratory Rate 16 03/17/2022 3:45 PM EDT Oxygen Saturation 98% 03/17/2022 3:45 PM EDT Inhaled Oxygen Concentration - - Weight 97.1 kg (214 lb) 03/11/2022 2:26 PM EDT Height 165.1 cm (5' 5 ) 03/11/2022 2:26 PM EDT Body Mass Index 35.61 03/11/2022 2:26 PM EDT Plan of Treatment Not on file Medical Devices Implanted Type Area Window Draper Device Identifier Shelf Expiration Date Model / Serial / Lot Lens Io [id number] Diopt .245 - [id number] - [id number] Implanted:Qty: 1 on 03/17/2022 by Tim Blackwell MD at [facility] Lens Left: Eye [employer] 12/01/2026 [id number] / [id number] / Insurance [facility] Advance Directives * Full Code (Latest Code Status on File) Date Activated Date Inactivated Comments 03/17/2022 12:50 PM 03/17/2022 6:10 PM Care Teams Beef Grinder Relationship Specialty Start Date End Date Megan Willson MD PCP - General 11/28/21
--- OUTSIDE RECORDS SUMMARY | 2025-08-27 07:56 | XMS_ITS ---
Author Name [facility] Organization Unknown Care Team Organization Name Specialty Phone Email Start Date End Da te [facility] Megan Willson Primary Care 09/01/2022 4
== END ==
LOC: HO.CARD 07:53
PROVIDERS: PCP Internal Medicine; Visit Provider Internal Medicine
DX: I49.1 Atrial premature depolarization (principal); R00.2 Palpitations
CPT/HCPCS: 93242

== ENCOUNTER → 2025-08-27 07:55 | Outpatient (BNV) | payer BC, MEDICARE, SELFPAY | PROVIDERS: PCP Internal Medicine; Visit Provider Internal Medicine Cardiovascular Disease | DX: I49.1 Atrial premature depolarization (principal) | CPT/HCPCS: 93244 ==

== ENCOUNTER 2025-10-15 13:51 | Outpatient (AMB) | payer BC, SELFPAY ==
[2025-10-15 13:56] VITALS: BP 122/68; PULSE 65; BMI 26.7
--- NOTE | 2025-10-15 13:56 | A.OFFVIS_ITS ---
Vital Signs 10/15/25 13:56 Height 5 ft 1 in Weight 141 lb 1.533 oz BMI 26.7 BP 122/68 Blood Pressure Location Lt brachial Position Sitting Pulse 65 Pulse Source Monitor Intake Visit Reasons: 1 yr s/p holter/ home sleep Allergies No Known Allergies Allergy (Verified 09/18/24 09:09) Medication List - Last Reconciled 10/15/25 by Dimas Jeffries MD atorvastatin 40 mg PO QPM clopidogrel 75 mg DAILY Held on 09/22/23. Instructions: Resume on 09/29/23. fluticasone propion-salmeterol 250-50 mcg/dose (Advair Diskus) 1 inh inhalation BID HPI Comments Details: Mary returns for follow-up regarding supraventricular ectopy on EKGs. In the past, she was seen for that reason. She also has strong vascular history and has had aortoiliac/femoral bypass in the past. Cardiac catheterization 2019 had shown nonobstructive disease. She has also undergone weight loss surgery and lost a significant amount of meat. Overall, she states she feels great and in fact this is the best he has ever felt in a long time. Denies any clear-cut cardiac symptoms. FOR[facility]LY [facility], [facility] Medical History BMI 37.0-37.9, adult BMI 38.0-38.9,adult Preoperative cardiovascular examination Morbid obesity PAC (premature atrial contraction) Plantar fasciitis Neuropathy COPD (chronic obstructive pulmonary disease) Peripheral vascular disease Atherosclerotic cardiovascular disease Surgical History S/P hysterectomy S/P laparoscopic sleeve gastrectomy Hx of cardiac catheterization Hx of colonoscopy Hx of tonsillectomy Hx of foot surgery Hx of carpal tunnel repair History of [id number]-[id number] bypass Family History Mother COPD (chronic obstructive pulmonary disease) Hypertension Father Peripheral arterial disease Brother No problems noted. Brother Heart disease Sister No problems noted. Son No problems noted. Daughter No problems noted. Social History Household Members: Spouse Housing: House Are you a primary adult live in caregiver to a significant other at home: No Do you presently have visiting nurse or other home services: No Alcohol intake: never Patient Tobacco Use Status: Former Tobacco user Tobacco use type: Cigarette Second Hand Smoke Exposure: No Substance Use Type: Marijuana Review of Systems Const Denies weakness ENT Denies dizziness Card Denies chest pain, Denies chest pain with activity, Denies syncope, Denies rapid heart rate, Denies pedal edema, Denies edema, Denies leg edema, Denies lightheadedness, Denies palpitations, Denies dyspnea, Denies dyspnea on exertion and Denies orthopnea Resp Denies cough, Denies dyspnea and Denies dyspnea on exertion GI Denies hematochezia and Denies change in stool character Musc Denies abnormal gait, Denies muscle cramps, Denies muscle weakness, Denies numbness, Denies radiating pain into limb and Denies tingling Neuro Denies abnormal gait, Denies dizziness, Denies syncope, Denies numbness, Denies tingling and Denies weakness Endo Denies palpitations Physical Exam Vital Signs: Last Vital Signs Pulse 65 10/15/25 13:56 BP 122/68 10/15/25 13:56 BMI result Body Mass Index 26.7 Const General: comfortable and no acute distress Orientation/consciousness: patient oriented x3 HEENT Other: Unremarkable Head: Yes normal to inspection Neck Neck: Yes normal visual inspection Chest Chest palpation & inspection: normal inspection of the chest Resp Auscultation: clear to auscultation bilaterally Cardio Palpation: normal PMI Heart sounds: S1 normal heart sound present, S2 normal heart sound present, no gallops, no murmurs and no rubs GI Palpation (GI): Soft to palpation Back/Spine/Pelvis Other: unremarkable Skin General skin exam: no rashes or lesions noted Neuro General: patient oriented x3 Extrem General: Yes normal to inspection Psych Mental Status: mental status grossly normal Office Procedures EKG Details: EKG with sinus rhythm at 65/Min; supraventricular ectopy; nonspecific [place] changes; [place] [id number], Complete Assessment & Plan Assessment & Plan (1) Atherosclerotic cardiovascular disease: Code(s): I25.10 - Atherosclerotic heart disease of [place] coronary artery without angina pectoris Category: Medical (2) PAC (premature atrial contraction): Code(s): I49.1 - Atrial premature depolarization Category: Medical (3) Peripheral vascular disease: Code(s): I73.9 - Peripheral vascular disease, unspecified Category: Medical Plan Cardiac studies reviewed. Holter, sinus rhythm with an average rate of 67/Min. Rare PACs and short runs of SVT. In the previous Holter, frequent supraventricular ectopy with a burden of 17%. Even earlier, burden of 15%. Cardiac catheterization 2019-nonobstructive disease only. Nothing hemodynamically significant. Echocardiogram with hyperdynamic LVEF; no significant valvular issues. Overall, there is increased risk of atrial fibrillation in the future but otherwise no specific management for now. Her weight loss would be definitely beneficial in this regard. Otherwise, with regard to medications, she is on Plavix, statins. No specific changes with that. We will follow her up in one year. In the interim, call with concerns. Discussion Notes: I informed the patient that I reviewed her monitor from August and the results look good with nothing concerning. I acknowledged that she is feeling very well. We discussed her follow-up plan, and we both agreed that a one-year follow-up visit is appropriate given her stability. I advised that should any concerns arise in the interim, I will review her case again. I also confirmed that she is getting all of her medications from Dr. Adrian. Patient was informed and verbally consented to the use of an ambient scribe for clinic note documentation during this visit. Total time spent including review of data, counseling, documentation, coordination of care-38 minutes. Patient Instructions: - Please schedule a follow-up appointment in one year. - If you have any new concerns before your next appointment, please contact our office. Coding Level of Care Code Est Pt Level 4 (23115) Add On Problem Visit Only Diagnoses Atherosclerotic cardiovascular disease I25.10 PAC (premature atrial contraction) I49.1 Peripheral vascular disease I73.9 CPT Codes EKG - CPT: 58724-[id number], Complete ([id number])
--- OUTSIDE RECORDS SUMMARY | 2025-10-15 17:21 | XMS_ITS | Encounter Summary ---
Author Organization [facility] [place] [address] Care Team Providers Care Pasting Machine Offbearer Name Role Phone Megan Willson MD Primary Care Provider [phone] Encounter Details Date Type Department Care Team (Late st Contact Info) Description 09/05/2025 Results Follow-Up Adult Medicine [facility] [address] [place] [address] Tiffany Parham PA [address] [place], [place] Social History Tobacco Use Types Packs/Day Years Used Date Smoking Tobacco: Former Cigarettes 1 Q uit: 06/06/2019 Smokeless Tobacco: Never Alcohol [...] care for your loved ones. For example, children's nursery assistant or elderly care for an older adult? [...] living situation? Unrecognized valu e 02/13/2025 Comments No Sex and Gender Information Value Date Recorded Sex Assigned at Female 05/16/2025 10:19 PM EDT Legal Sex Female 11:47 PM EST Gender Identity Not on file Sexual Orientation Not on file documented as of this encounter Plan of Treatment Upcoming Encounters Date Type Department Care Team ([facility] st Contact Info) Description 01/10/2026 9:00 AM EDT Office Visit Obstetrics and Gynecology [address] [phone] Ana Carcamo CNM [address] [place], [place] 02/13/2026 9:30 AM EDT Office Visit Adult Medicine [address] [phone] Tiffany Parham PA [address] [place], [place] documented as of this encounter Visit Diagnoses Not on filedocumented in this encounter Additional Health Concerns Assessment Noted Time PHQ-9 Depression Total Score: 0 08/08/20 25 10:40 AM EDT A fall risk assessment has been complete d for the patient 02/13/2025 11:05 AM EDT documented as of this encounter Care Teams Pasting Machine Offbearer Relationship Specialty Start Date End Date Megan Willson MD [address] [place] [address] PCP - General Internal Medicine 02/02/19 documented as of this encounter
--- OUTSIDE RECORDS SUMMARY | 2025-10-15 17:21 | XMS_ITS | Clinical Summary ---
Author Organization [address] Address [address] [place] [address] LOUIE Cramer [id number] Phone Care Team Providers Care Drawing Checker Name Role Phone Megan Willson MD Primary Care Provider [phone] Allergies No known active allergies Medications fluticasone-akin meterol (Advair Diskus) 250-50 mcg/dose diskus inhaler Inhale 1 puff by mouth 2 (two) times a day. 3 each 1 08/15/2025 Active clopidogreL (PLAVIX) 75 mg tablet Take 1 tablet (75 mg total) by mouth 1 (one) time each day. 90 tablet 1 08/15/2025 Active atorvastatin (LIPITOR) 40 mg tablet Take 1 tablet (40 mg total) by mouth at bedtime. 90 each 1 08/15/2025 Active nitrofurantoin, macrocrystal-mo nohydrate, (MACROBID) 100 mg capsule Take 1 capsule (100 mg total) by mouth 2 (two) times a day for 5 days. 10 each 09/12/2025 09/17/20 25 Active Problems Problem Noted Date Diagnosed Date Age-related osteoporosis wit hout current pathological fracture 09/05/2025 Bariatric surgery status 02/18/2025 Overview (02/18/2025): s/p sleeve gastrectomy (08/2023) Diastolic dysfunction 08/31/2023 Overview (10/21/2024): Grade 1 PAC (premature atrial contraction) 08/31/2023 Overview (10/21/2024): [facility]. Dr. Jeffries. Frequent PACs. Holter monitor 08/16/2023. Total burden 15%. Chronic bilateral low back pain 08/17/2022 Prediabetes 09/12/2021 COPD (chronic obstructive pulmonary disease) 08/2019 Tubular adenoma 02/02/2019 Overview (10/21/2024): 01/08 2 adenomas; repeat CN 04/10/21 - tubular adenoma; repeat 5 years PAD (peripheral artery disease) 08/30/2018 Overview (10/21/2024): Diffuse disease legs with claudication [...] Encounters Date Type Department Care Team Description 09/12/2025 11:00 AM EST Lab Draw Station [address] Dysuria 09/12/2025 10:30 AM EST Office Visit Adult [address] [phone] Tiffany Parham PA Dysuria (Primary Dx) 09/12/2025 Results Follow-Up Adult [address] [phone] Tiffany Parham PA 09/11/2025 Nurse Triage [address] [phone] Megan Willson MD 09/05/2025 Results Follow-Up [address] [phone] Tiffany Parham PA 09/04/2025 1:47 PM EST - 09/04/2025 11:59 PM EST Hospital Encounter Radiology Department - [address] [phone] Encounter for screening mammogram for malignant neoplasm of breast Discharge Disposition: Home or Self Care 09/04/2025 1:47 PM EST - 09/04/2025 11:59 PM EST Hospital Encounter Bone Density - [address] [phone] Postmenopausal Discharge Disposition: Home or Self Care 08/15/2025 8:45 AM EDT Office Visit [address] [phone] Megan Willson MD Prediabetes (Primary Dx); Chronic obstructive pulmonary disease, unspecified COPD type (CMS/HCC V24, CMS/HCC V28); Other hyperlipidemia; PAD (peripheral artery disease) ([facility] V24); Raynaud's disease without gangrene 08/15/2025 Results Follow-Up [address] [phone] Megan Willson MD from Last 3 Months [...] Wheezing 11/29/2017 PVD (peripheral vascular dis ease) ([facility] V24) 08/30/2018 : Diffuse disease legs with claudication Tubular adenoma 02/02/201901/08 2 adenomas; repeat CN 3 years Severe obesity (BMI 35.0-39. 9) with comorbidity ([facility] V24, [facility] V28) 03/12/2021 COPD (chronic obstructive pu lmonary disease) ([facility] V24, [facility] V28) 02/02/2019 Bariatric surgery status 02/18/2025 s/p [...] 1 Q uit: 06/06/2019 Smokeless Tobacco: Never Tobacco [...] for your loved ones. For example, child daycare worker or elderly care for an older adult? [...] Sexual Orientation Not on file Obstetrics History Para Term AB IAB SAB Ectopic Multiple Livin g Live Births 2 2 2 2 Date Outcome GA Total Labor Labor/2nd/3rd Weight Sex Type Anes PTL Kristal A1 A5 Name Clin Term Term Last Filed Vital Signs Vital Sign Reading Time Taken Comments Blood Pressure 139/59 09/12/2025 10:41 AM EST Pulse 58 09/12/2025 10:41 AM EST Temperature 36.6 C (97.8 F) 09/12/2025 10:41 AM EST Respiratory Rate 15 09/12/2025 10:4 1 AM EST Oxygen Saturation 96% 09/12/2025 10: 41 AM EST Inhaled Oxygen Concentration - - Weight 66.1 kg (145 lb 11.2 oz) 025 10:41 AM EST Height 154.9 cm (5' 1 ) 09/12/2025 10:4 1 AM EST Body Mass Index 27.53 09/12/2025 10:41 AM EST Plan of Treatment Upcoming Encounters Date Type Department Care Team (Late st Contact Info) Description 01/10/2026 9:00 AM EDT Office Visit Obstetrics and Gynecology [address] [phone] Ana Carcamo, TRACY [address] [place] [address] 02/13/2026 9:30 AM EDT Office Visit Adult Medicine [address] [phone] Tiffany Parham PA [address] [place] [address] Health Maintenance Due Date Last Done Comments RSV Immunization Adult Patients (1 - Risk 50-74 years 1-dose series) 2009 Cervical Cancer Screening: HPV 01/01/2025 01/02/2020 COVID-19 Vaccine ( season) 2025 11/02/2021, 04/26/2021, 03/29/2021 Medicare Annual Wellness Visit 02/13/2026 02/13/2025 Social Influencers of Health Screening 02/13/2026 02/13/2025 Falls Risk Assessment 09/13/2026 09/13/2025 , 02/13/2025, 05/29/2024 DTaP,Tdap,and Td Vaccines (2 - Td or Tdap) 10/08/2026 10/08/2016 Breast Cancer Screening 09/04/2027 09/04/20, 01/07/2024, 01/04/2023, Additional history exists Cholesterol Screening (Lipid Panel) 08/15/2030 08/15/2025, 02/13/2025, 02/25/2023 Colorectal Cancer Screening: Colonoscopy 04/10/2031 04/10/2021 Osteoporosis Screening (Bone Density Screening) 09/04/2035 09/04/2025 Hepatitis C Screening Completed 10/08/2016 Zoster Vaccines Completed 10/14/2020, 08/01/2020 Pneumococcal Vaccine: 50+ Years Completed 02/13/2025, 03/12/2021 Lung Cancer Screening (Low Dose CT) Discontinued 05/21/2025, 05/24/2024, 05/13/2023, Additional history exists Influenza Vaccine Completed 08/15/2025, , 08/28/2022, Additional history exists Depression Screening Completed 09/11/2025 HIB Vaccines Aged Out No longer eligi [...] Procedure Name Priority Date/Time Associated Diagnosis Comments URINALYSIS WITH REFLEX MICROSCOPIC AND CULTURE Routine 09/12/2025 11:06 AM EST Dysuria CULTURE URINE Routine 09/12/2025 11:06 AM EST Dysuria MOCTEZUMA URINE CULTURE TUBE Routine 09/12/2025 10:56 AM EST Dysuria URINALYSIS WITH REFLEX MICROSCOPIC AND CULTURE Routine 09/12/2025 10:56 AM EST Dysuria MG MAMMO DIGITAL SCREENING W RICHY BILAT Routine 09/04/2025 2:14 PM EST Encounter for screening mammogram for malignant neoplasm of breast BD BONE DENSITY DXA AXIAL SKELETON Routine 09/04/2025 2:04 PM EST Postmenopausal LIPID PANEL WITH REFLEX TO DIRECT LDL Routine 08/15/2025 9:19 AM EDT Other hyperlipidemia HEMOGLOBIN A1C Routine 08/15/2025 9:[address] LUNG SCREENING Routine 05/21/2025 8:1 2 AM EDT Encounter for screening for malignant neoplasm of respiratory organs Nicotine dependence, cigarettes, uncomplicated FALLS RISK ASSESSMENT Routine 05/29/2024 COLONOSCOPY Routine 04/10/2021 HPV Routine 01/02/2020 HEPATITIS C SCREENING Routine 10/08/2016 from Last 3 Months or Most Recently Relevant to Health Maintenance Results * (ABNORMAL) Urinalysis with reflex microscopic and culture (09/12/2025 11:06 AM EST) Specific [place] Urine 1.020 1.003 - 1.030 LAB URINALYSIS - AUTOMATED METHOD 09/12/2025 12:[address] [facility] pH, Urine 7.5 5.0 - 8.0 pH LAB URINALYSIS - AUTOMATED METHOD 09/12/2025 12:50 PM [facility] Leukocytes, Urine Moderate(A) Negative LAB URINALYSIS - AUTOMATED METHOD 09/12/2025 12:50 PM [facility] Nitrite, Urine Positive(A) Negative LAB URINALYSIS - AUTOMATED METHOD 09/12/2025 12:50 PM [facility] Protein, Urine 30(A) <=Trace mg/dL LAB URINALYSIS - AUTOMATED METHOD 09/12/2025 12:50 PM [facility] Glucose, Urine Negative Negative mg/dL LAB URINALYSIS - AUTOMATED METHOD 09/12/2025 12:50 PM [facility] Ketones, Urine Trace(A) Negative mg/dL LAB URINALYSIS - AUTOMATED METHOD 09/12/2025 12:50 PM [facility] Urobilinogen , Urine 1.0 0.2 - 1.0 mg/dL LAB URINALYSIS - AUTOMATED METHOD 09/12/2025 12:50 PM [facility] Bilirubin, Urine Negative Negative LAB URINALYSIS - AUTOMATED METHOD 09/12/2025 12:50 PM [facility] Blood, Urine Moderate(A) Negative LAB URINALYSIS - AUTOMATED METHOD 09/12/2025 12:50 PM [facility] RBC, Urine >100(H) 0 - 4 /HPF 09/12/2025 12:50 PM [facility] WBC, Urine 4 0 - 4 /HPF 09/12/2025 12:50 PM [facility] Squamous Epithelial, Urine 10 0 - 60 /LPF 09/12/2025 12:50 PM [facility] Bacteria, Urine Moderate(A) Negative /HPF 09/12/2025 12:50 PM [facility] Urine Urine specimen obtained by clean catch procedure / Unknown Non-blood Collection / Unknown 09/12/2025 11:06 AM EST 09/12/2025 11:06 AM EST Tiffany HINOJOSA LAB URINE ORDERABLES Final Re sult [facility] [address] [place] [address], [place] [phone] * (ABNORMAL) Culture urine (09/12/2025 11:06 AM EST) Culture, Urine 50,000-100,000 CFU/mL Escherichia coli(A) PABLO 09/14/2025 10:[address] [facility] Comment: This is an edited result. Previous organism was Gram negative bacilli on 09/13/2025 at 0755 EST. Urine Urine specimen obtained by clean catch procedure / Unknown Non-blood Collection / Unknown 09/12/2025 11:06 AM EST 09/12/2025 12:50 PM EST Narrative Organism Antibiotic Method Susceptibility Escherichia coli Amoxicillin/Clavulanate PABLO 4 ug/ml: Susceptible Escherichia coli Ampicillin/Sulbactam PABLO 4 ug/ml: Susceptible Escherichia coli Piperacillin/Tazobactam PABLO <=4 ug/ml: Susceptible Escherichia coli Cefazolin (Urine) PABLO 4 ug/ml: Susceptible Escherichia coli Cefoxitin PABLO <=4 ug/ml: Susceptible Escherichia coli Ceftazidime PABLO <=0.5 ug/ml: Susceptible Escherichia coli Ceftriaxone PABLO <=0.25 ug/ml: Susceptible Escherichia coli Cefepime PABLO <=0.12 ug/ml: Susceptible Escherichia coli Meropenem PABLO <=0.25 ug/ml: Susceptible Escherichia coli Amikacin PABLO 2 ug/ml: Susceptible Escherichia coli Gentamicin PABLO <=1 ug/ml: Susceptible Escherichia coli Ciprofloxacin PABLO <=0.06 ug/ml: Susceptible Escherichia coli Levofloxacin PABLO <=0.12 ug/ml: Susceptible Escherichia coli Nitrofurantoin PABLO 32 ug/ml: Susceptible Escherichia coli Trimethoprim/Sulfamethoxazole PABLO <=20 ug/ml: Susceptible us Tiffany HINOJOSA LAB MICROBIOLOGY - GENERAL OR DERABLES Final Result [facility] [address] [place] [address], [place] [phone] * [place] urine culture tube (09/12/2025 10:56 AM EST) Extra Tube Hold for add-ons. 09/12/2025 1:[address] [facility] Comment:Auto resulted. Urine Urine specimen obtained by clean catch procedure / Unknown Non-blood Collection / Unknown 09/12/2025 10:56 AM EST 09/12/2025 11:50 AM EST us Tiffany HINOJOSA LAB URINE ORDERABLES Final Re sult [facility] [address] [place] [address], [place] [phone] * MG Mammo Digital Screening w Richy bilat (09/04/2025 2:14 PM EST) Anatomical Region Laterality Modality Breast Bilateral Mammography 09/05/2025 7:00 PM EST Impressions 09/05/2025 7:03 PM EST 1. No mammographic evidence of malignancy 2. Scattered fibroglandular tissue BI-RADS CATEGORY: 2 - BENIGN RECOMMENDATION: Screening bilateral mammogram is recommended in 1 year. Mammo Location: [facility], [address] [place] [address], [id number], . -------- FINAL REPORT -------- Dictated By: Ming Fitzpatrick Dictated Date: 09/05/2025 19:00 ET Assigned Physician: Ming Fitzpatrick Reviewed and Electronically Signed By: Ming Fitzpatrick Signed Date: 09/05/2025 19:03 ET Workstation ID: [id number] Transcribed By: Self Edit Transcribed Date: 09/05/2025 19:00 ET Narrative 09/05/2025 7:03 PM EST A BILATERAL DIGITAL 3D SCREENING MAMMOGRAPHY HISTORY: Routine screening. No family history of breast cancer. COMPARISON: Multiple priors dating back to 12/25/2020 Technique: Bilateral full field digital mammography (3D) was performed using standard CC and MLO projections , tubing material overlies the right axilla limiting evaluation CAD was used to evaluate this mammogram. FINDINGS: Right: No suspicious masses, groups of microcalcification or areas of architectural distortion identified. Stable typically benign parenchymal asymmetries. Left: No suspicious masses, groups of microcalcification or areas of architectural distortion identified. Stable typically benign parenchymal asymmetries. BREAST DENSITY: B - There are scattered areas of fibroglandular density. Procedure Note Ming Fitzpatrick MD - 09/05/2025 A BILATERAL DIGITAL 3D SCREENING MAMMOGRAPHY HISTORY: Routine screening. No family history of breast cancer. COMPARISON: Multiple priors dating back to 12/25/2020 Technique: Bilateral full field digital mammography (3D) was performedusing standard CC and MLO projections , tubing material overlies the rightaxilla limiting evaluation CAD was used to evaluate this mammogram. FINDINGS: Right: No suspicious masses, groups of microcalcification or areas ofarchitectural distortion identified. Stable typically benign parenchymalasymmetries. Left: No suspicious masses, groups of microcalcification or areas ofarchitectural distortion identified. Stable typically benign parenchymalasymmetries. BREAST DENSITY: B - There are scattered areas of fibroglandular density. IMPRESSION: 1. No mammographic evidence of malignancy 2. Scattered fibroglandular tissue BI-RADS CATEGORY: 2 - BENIGN RECOMMENDATION: Screening bilateral mammogram is recommended in 1 year. Mammo Location: [facility], [address] [place] [address], [facility], . -------- FINAL REPORT -------- Dictated By: Ming Fitzpatrick Dictated Date: 09/05/2025 19:00 ET Assigned Physician: Ming Fitzpatrick Reviewed and Electronically Signed By: Ming Fitzpatrick Signed Date: 09/05/2025 19:03 ET Workstation ID: [id number] Transcribed By: Self Edit Transcribed Date: 09/05/2025 19:00 ET us Megan Willson MD IMG BI PROCEDURES Final Result * BD Bone Density DXA Axial Skeleton (09/04/2025 2:04 PM EST) Anatomical Region Laterality Modality Wrist, Hip, L-spine Bone Densito metry 09/04/2025 2:30 PM EST Impressions 09/04/2025 2:31 PM EST Impression: This patient is considered to have osteoporosis by WHO criteria. The [facility] Department of Internal Medicine recommends using National Osteoporosis Foundation (NOF) guidelines in treatment decisions related to osteoporosis. NOF guidelines suggest considering treatment for postmenopausal women and men aged 50 or older presenting with the following: History of hip or vertebral fracture. T-score = -2.5 (DXA) at the femoral neck, total hip, or spine, after appropriate evaluation to exclude secondary causes. Low bone mass (T-score between -1.0 and -2.5 at the femoral neck or spine) AND a 10-year probability of a hip fracture = 3% OR a 10-year probability of a major osteoporosis-related fracture = 20% based on the [place]-adapted WHO algorithm Please note that all treatment decisions require clinical judgment and consideration of individual patient factors, including patient preferences, co-morbidities, previous drug use, risk factors not captured in the FRAX model (e.g., frailty, falls, vitamin D deficiency, increased bone turnover, interval significant decline in bone density) and possible under- or over-estimation of fracture risk by FRAX. Optional alternative screening schedule based on sheryl Vasquez., [facility] November 12, 2011 for patients with osteopenia (based on hip BMD T-score) is as follows: * advanced osteopenia (T scores -2.00 to -2.49), BMD testing every year * moderate osteopenia (T scores -1.50 to -1.99), BMD testing every 5 years mild osteopenia or normal BMD (T scores -1.50 and higher), BMD testing every 15 years -------- FINAL REPORT -------- Dictated By: Mary Hughes Dictated Date: 09/04/2025 14:30 ET Assigned Physician: Mary Hughes Reviewed and Electronically Signed By: Mary Hughes Signed Date: 09/04/2025 14:31 ET Workstation ID: [id number] Transcribed By: Self Edit Transcribed Date: 09/04/2025 14:30 ET Narrative 09/04/2025 2:31 PM EST BONE DENSITY (DEXA) Lumbar Spine T-score is -1.2. (SD relative to 20-29 y/o adult) Z-score is 0.7. (SD relative to age matched peers) This is considered osteopenia by WHO criteria. Left Hip T-score is -2.8. Z-score is -1.2. This is considered osteoporosis by WHO criteria. Procedure Note Mary Hughes MD - 09/04/2025 BONE DENSITY (DEXA) Lumbar Spine T-score is -1.2. (SD relative to 20-29 y/o adult) Z-score is 0.7. (SD relative to age matched peers) This is considered osteopenia by WHO criteria. Left Hip T-score is -2.8. Z-score is -1.2. This is considered osteoporosis by WHO criteria. IMPRESSION: Impression: This patient is considered to have osteoporosis by WHO criteria. The [facility] Department of Internal Medicine recommendsusing National Osteoporosis Foundation (NOF) guidelines in treatmentdecisions related to osteoporosis. NOF guidelines suggest consideringtreatment for postmenopausal women and men aged 50 or older presentingwith the following: History of hip or vertebral fracture. T-score = -2.5 (DXA) at the femoral neck, total hip, or spine, afterappropriate evaluation to exclude secondary causes. Low bone mass (T-score between -1.0 and -2.5 at the femoral neck or spine)AND a 10-year probability of a hip fracture = 3% OR a 10-year probabilityof a major osteoporosis-related fracture = 20% based on the [place]-adapted WHOalgorithm Please note that all treatment decisions require clinical judgment andconsideration of individual patient factors, including patientpreferences, co-morbidities, previous drug use, risk factors not capturedin the FRAX model (e.g., frailty, falls, vitamin D deficiency, increasedbone turnover, interval significant decline in bone density) and possibleunder- or over-estimation of fracture risk by FRAX. Optional alternative screening schedule based on sheryl Vasquez., [facility] for patients with osteopenia (based on hip BMD T-score)is as follows: * advanced osteopenia (T scores -2.00 to -2.49), BMD testing every year * moderate osteopenia (T scores -1.50 to -1.99), BMD testing every 5years mild osteopenia or normal BMD (T scores -1.50 and higher), BMD testingevery 15 years -------- FINAL REPORT -------- Dictated By: Mary Hughes Dictated Date: 09/04/2025 14:30 ET Assigned Physician: Mary Hughes Reviewed and Electronically Signed By: Mary Hughes Signed Date: 09/04/2025 14:31 ET Workstation ID: [id number] Transcribed By: Self Edit Transcribed Date: 09/04/2025 14:30 ET us Tiffany HINOJOSA IMG DXA PROCEDURES Final Resu lt * Lipid panel with reflex to direct LDL (08/15/2025 9:19 AM EDT) Cholesterol 134 0 - 200 mg/dL LAB CHEMISTRY METHOD 08/15/2025 1:26 PM [facility] Triglycerides 68 0 - 150 mg/dL LAB CHEMISTRY METHOD 08/15/2025 1:26 PM [facility] HDL 61 >=40 mg/dL LAB CHEMISTRY METHOD 08/15/2025 1:26 PM [facility] LDL Calculated 59 0 - 100 mg/dL LAB CHEMISTRY METHOD 08/15/2025 1:26 PM [facility] Comment:Estimated LDL Calcul ated using equation: Total cholesterol - HDL cholesterol - (Triglycerides/5) VLDL Cholesterol Eliot 13.6 mg/dL LAB CHEMISTRY METHOD 08/15/2025 1:26 PM [facility] Non HDL Chol. (LDL+VLDL) 73 <145 mg/dL LAB CHEMISTRY METHOD 08/15/2025 1:26 PM [facility] Chol/HDL Ratio 2.2 0.0 - 4.4 LAB CHEMISTRY METHOD 08/15/2025 1:26 PM [facility] Blood Venous blood specimen / Unknown Venipuncture / Unknown 08/15/2025 9:19 AM EDT 08/15/2025 9:19 AM EDT us Megan Willson MD LAB BLOOD ORDERABLES Final Resul t Performing Organization Address [facility] Co de Phone Number [facility] [address] [place] [address], [place] [phone] * Hemoglobin A1c (08/15/2025 9:19 AM EDT) Hemoglobin A1C 6.0 <6.5 % LAB CHEMISTRY METHOD 08/15/2025 12:[address] [facility] Mean Bld Glu Estim. 126 mg/dL LAB CHEMISTRY METHOD 08/15/2025 12:[address] [facility] Blood Venous blood specimen / Unknown Venipuncture / Unknown 08/15/2025 9:19 AM EDT 08/15/2025 9:19 AM EDT us Megan Willson MD LAB BLOOD ORDERABLES Final Resul t Performing Organization Address [facility] de Phone Number [facility] [address] [place] [address], [place] [phone] * CT Lung Screening (05/21/2025 8:12 AM EDT) Anatomical Region Laterality Modality Chest Computed Tomogra phy 05/22/2025 4:14 PM EDT Impressions 05/22/2025 4:22 PM EDT Impression: No suspicious developing pulmonary nodule. No significant change. Lung-RADS Category: Lung-RADS 2: Nodule(s) with benign appearance or behavior. Continue annual screening with Low Dose Chest CT in 12 months. [place] ([id number]) -------- FINAL REPORT -------- Dictated By: Ivonne Neri Dictated Date: 05/22/2025 16:14 ET Assigned Physician: Ivonne Neri Reviewed and Electronically Signed By: Ivonne Neri Signed Date: 05/22/2025 16:22 ET Workstation ID: [id number] Transcribed By: Self Edit Transcribed Date: 05/22/2025 16:14 ET Narrative 05/22/2025 4:22 PM EDT History: 65 year-old 71 pack-year current smoker, asymptomatic, for lung cancer screening. Comparison: 05/19/24 Technique: Helical volumetric imaging of the thorax was performed, using low- dose technique, without IV contrast. DLP: 166.82 mGy/cm CTDIvol: 4.89 mGy [facility] Iterative reconstruction technique Findings: Lungs and Airways: [...] contrast. DLP: 166.82 mGy/cm CTDIvol: 4.89 mGy [facility] Iterative reconstruction technique Findings: Lungs and Airways: [...] Chest CT in 12 months. [place] ([id number]) -------- FINAL REPORT -------- Dictated By: Ivonne Neri Dictated Date: 05/22/2025 16:14 ET Assigned Physician: Ivonne Neri Reviewed and Electronically Signed By: Ivonne Neri Signed Date: 05/22/2025 16:22 ET Workstation ID: [id number] Transcribed By: Self Edit Transcribed Date: 05/22/2025 16:14 ET Result [facility] Alice Leung MD IMG CT PROCEDURES Final Result * Falls Risk Assessment (05/29/2024) [facility] Falls Risk Assessment ABSTRACTED Result [facility] Provider HEALTH MAINTENANCE Final Result * Colonoscopy (04/10/2021) [facility] Colonoscopy no interpretation , abstracted Anatomical Region Laterality Modality Other Result [facility] Provider HEALTH MAINTENANCE Final Result * Cervical Cancer Screening: HPV (01/02/2020) [facility] Cervical Cancer Screening: HPV negative,a bstracted Result [facility] Mariam WING HEALTH MAINTENANCE Final Result * Hepatitis C Screening (10/08/2016) Hepatitis C Screening ABSTRACTED us Historical Provider HEALTH MAINTENANCE Final Result from Last 3 Months or Most Recently Relevant to Health Maintenance Insurance MEDICARE [facility] Care Teams Drawing Checker Relationship Specialty Start Date End Date Megan Willson MD [address] [facility] [place] [address] PCP - General Internal Medicine 02/02/19
--- OUTSIDE RECORDS SUMMARY | 2025-10-15 17:21 | XMS_ITS | Clinical Summary ---
Author Organization [facility] Address [address] [place] [address] Care Team Providers Care Technology Applications Teacher Name Role Phone Megan Willson MD Primary Care Provider [phone] Allergies No known active allergies Medications FLUTICASONE [...] on file Medical Devices Implanted Type Area Farm Consultant Device Identifier Shelf Expiration Date Model / Serial / Lot Lens Io [id number] Diopt .245 - [id number] - [id number] Implanted:Qty: 1 on 03/17/2022 by Tim Blackwell MD at [facility] Lens Left: Eye [employer] 12/01/2026 SA60WF.245 / [id number] / Insurance [employer] Advance Directives * Full Code (Latest Code Status on File) Date Activated Date Inactivated Comments 03/17/2022 12:50 PM 03/17/2022 6:10 PM Care Teams Technology Applications Teacher Relationship Specialty Start Date End Date Megan Willson MD PCP - General 11/28/21
--- OUTSIDE RECORDS SUMMARY | 2025-10-15 17:21 | XMS_ITS | Encounter Summary ---
Author Organization [facility] [place] [address] Care Team Providers Care Polysomnography Tech Name Role Phone Megan Willson MD Primary Care Provider [phone] Encounter Details Date Type Department Care Team (Late st Contact Info) Description 09/12/2025 Results Follow-Up Adult Medicine [facility] [address] [place] [address] Tiffany Parham PA [address] [place], [place] Social History Tobacco Use Types Packs/Day [...] care for your loved ones. For example, early childhood education worker or elderly care for an older [...] on file documented as of this encounter Ordered Prescriptions Prescription Sig Dispense Quantity Refills Last Filled Start Date End Date nitrofurantoin, macrocrystal-monoh ydrate, (MACROBID) 100 mg capsule Take 1 capsule (100 mg total) by mouth 2 (two) times a day for 5 days. 10 each 09/12/2025 documented in this encounter Plan of Treatment Upcoming Encounters Date Type Department Care Team (Late st Contact Info) Description 01/10/2026 9:00 AM EDT Office Visit Obstetrics and Gynecology - [address] [phone] Ana Carcamo CNM [address] [place] [address] 02/13/2026 9:30 AM EDT Office Visit Adult Medicine [facility] - [address] [phone] Tiffany Parham PA [address] [place] [address] documented as of this encounter Visit Diagnoses Not on filedocumented in this encounter Additional Health Concerns Assessment Noted Time PHQ-9 Depression Total Score: 0 08/08/20 25 10:40 AM EDT A fall risk assessment has been complete d for the patient 02/13/2025 11:05 AM EDT documented as of this encounter Care Teams Polysomnography Tech Relationship Specialty Start Date End Date Megan Willson MD [address] [place] [address] PCP - General Internal Medicine 02/02/19 documented as of this encounter
--- OUTSIDE RECORDS SUMMARY | 2025-10-15 17:21 | XMS_ITS | Encounter Summary ---
Author Organization [facility] [place] [address] Care Team Providers Care Chemical Production Engineer Name Role Phone Megan Willson MD Primary Care Provider Encounter Details Date Type Department Care Team (Late st Contact Info) Description 08/15/2025 Results Follow-Up Adult Medicine [facility] [address] [place] [address] Megan Willson MD [address] [place], [place] Social History Tobacco Use Types Packs/Day [...] care for your loved ones. For example, school childcare attendant or elderly care for an older adult? [...] Upcoming Encounters Date Type Department Care Team ([facility] Contact Info) Description 01/10/2026 9:00 AM EDT Office Visit Obstetrics and Gynecology [address] [phone] Ana Carcamo CNM [address] [place], [place] 02/13/2026 9:30 AM EDT Office Visit Adult Medicine [address] [phone] Tiffany Parham PA [address] [place], [place] documented as of this encounter Visit Diagnoses Not on filedocumented in this encounter Additional Health Concerns Assessment Noted Time PHQ-9 Depression Total Score: 0 08/08/20 25 10:40 AM EDT A fall risk assessment has been complete d for the patient 02/13/2025 11:05 AM EDT documented as of this encounter Care Teams Chemical Production Engineer Relationship Specialty Start Date End Date Megan Willson MD [address] [place] [address] PCP - General Internal Medicine 02/02/19 documented as of this encounter
== END 2025-10-15 14:19 | disposition home or self-care (01) ==
LOC: HO.HCS 13:52
PROVIDERS: PCP Internal Medicine; Visit Provider Internal Medicine
DX: I25.10 Atherosclerotic heart disease of native coronary artery without angina pectoris (principal); I49.1 Atrial premature depolarization; I73.9 Peripheral vascular disease, unspecified
CPT/HCPCS: 93010; 99214

== ENCOUNTER → 2025-10-15 13:51 | Outpatient (BNVA) | payer BC, SELFPAY | PROVIDERS: PCP Internal Medicine; Visit Provider Internal Medicine | DX: I25.10 Atherosclerotic heart disease of native coronary artery without angina pectoris (principal) | CPT/HCPCS: 93005 ==